=== PATIENT | female | born 1970 | race American Indian/Alaskan Native ===

== ENCOUNTER 2017-02-26 08:34 | Outpatient (CLI) | payer MEDICAID ==
[2017-02-26 09:24] LABS: Blood Urea Nitrogen 21 mg/dL (7-17)
[2017-02-26] MEDS ORDERED: NACL ONE (10:54)
--- NOTE | 2017-02-26 15:32 | Cat Scan Report ---
CT of the chest, abdomen, and pelvis without IV contrast and with oral contrast. History: Renal cancer. Findings: The lung abreu are clear. The mediastinum and hilar regions are normal. No pulmonary nodules or masses are seen. There is no pleural fluid. No suspicious bony findings are seen. A catheter terminates in the SVC. There is no pneumothorax no axillary adenopathy is seen. The liver and spleen are normal in size and configuration with no evidence of focal abnormalities. The pancreas is unremarkable. The right kidney has been removed. There is no evidence of recurrent mass in the right renal fossa. The left kidney is unremarkable. The adrenal glands are normal. There is no adenopathy within the retroperitoneum. The uterus is unremarkable. No pelvic masses are seen. Bilateral hip prostheses with associated streak artifact are noted. Impression: 1. Negative CT of the chest. 2. No suspicious findings are seen within the abdomen or pelvis. The patient is status post right nephrectomy.
== END 2017-02-26 08:35 | disposition home or self-care (01) ==
LOC: CT 08:34
PROVIDERS: ATTEND Internal Medicine Hematology & Oncology
DX: C68.9 Malignant neoplasm of urinary organ, unspecified (principal); D64.9 Anemia, unspecified; Z90.5 Acquired absence of kidney; Z96.643 Presence of artificial hip joint, bilateral
CPT/HCPCS: 36415; 71250; 74176; 82565; 84520

== ENCOUNTER 2017-03-23 19:09 | Emergency (ER) | payer MEDICAID ==
--- NOTE | 2017-03-23 20:37 | Emergency Department Report ---
Upper Extremity - HPI Chief Complaint: Extremity Problem,Nontraumatic Stated Complaint: LT HAND PAIN UNABLE TO MOVE Time Seen by Provider: 03/23/17 20:37 Upper Extremity: Left Wrist, Left Hand, Left Thumb Occurred When: >5 Days (3 weeks) Severity: mild Symptoms: Yes Pain with Movement, Yes Limited Range of Movement, Yes Weakness, Yes Swelling, No Deformity, No Numbness, No Bruising/Ecchymosis, No Laceration or Abrasion Other History: 46-year-old female past medical history diabetes asthma hypertension and hyperlipidemia presents with complaint of 3 weeks of intermittent left hand and thumb discomfort pain with movement. Patient denies any direct trauma to hand or fingers. No falls no direct blunt trauma. Denies any fever or chills. Patient is able to range her fingers but with mild discomfort. Patient states she took Tylenol with minimal relief ED Review of Systems ROS: Stated complaint: LT HAND PAIN UNABLE TO MOVE Other details as noted in HPI Constitutional: denies: chills, fever Eyes: denies: eye pain, eye discharge, vision change ENT: denies: ear pain, throat pain Respiratory: denies: cough, shortness of breath, wheezing Cardiovascular: denies: chest pain, palpitations Endocrine: no symptoms reported Gastrointestinal: denies: abdominal pain, nausea, diarrhea Genitourinary: denies: urgency, dysuria, discharge Musculoskeletal: as per HPI. denies: back pain, joint swelling, arthralgia Skin: denies: rash, lesions Neurological: denies: headache, weakness, paresthesias Psychiatric: denies: anxiety, depression Hematological/Lymphatic: denies: easy bleeding, easy bruising ED Past Medical Hx - Past Medical History Previous Medical History?: Yes Hx Hypertension: Yes Hx Diabetes: No Hx GERD: Yes Hx Liver Disease: No Hx Renal Disease: Yes (kidney cancer) Hx Arthritis: Yes Hx Seizures: No Hx Asthma: No Hx COPD: No Hx HIV: No Additional medical history: pneumonia, ulcers - Surgical History Past Surgical History?: Yes Additional Surgical History: 2 hip replacements, back surgery, right arm surgery / RIGHT NEPHRECTOMY - Social History Smoking Status: Current Every Day Smoker Substance Use Type: Alcohol - Medications Home Medications: Home Medications Medication Instructions Recorded Confirmed Last Taken Type Pregabalin [Lyrica] 300 mg PO BID 12/17/13 08/19/16 08/16/16 History Valacyclovir HCl [Valtrex] 1,000 mg PO DAILY 12/17/13 08/19/16 08/18/16 History metFORMIN [Glucophage] 1,000 mg PO BIDDIAB #60 tablet 10/15/14 08/19/16 Rx Aspirin EC [Aspirin Enteric Coated 81 mg PO QDAY 12/03/15 08/19/16 08/14/16 History TAB] Diltiazem HCl [Cardizem LA] 360 mg PO DAILY 12/03/15 08/19/16 08/18/16 History Famotidine [Pepcid] 40 mg PO QHS 12/03/15 08/19/16 08/17/16 History Mirtazapine [Remeron] 15 mg PO QHS 12/03/15 08/19/16 08/16/16 History Omeprazole [PriLOSEC] 40 mg PO QDAY 12/03/15 08/19/16 08/16/16 History Simvastatin [Zocor TAB] 20 mg PO QHS 12/03/15 08/19/16 08/18/16 History Tizanidine HCl [Zanaflex] 4 mg PO TID 12/03/15 08/19/16 08/18/16 History Losartan/Hydrochlorothiazide 1 tab PO DAILY 12/28/15 08/19/16 08/18/16 09:00 History [Losartan-Hctz 100-12.5 mg Tab] oxyCODONE /ACETAMINOPHEN [Percocet 1 tab PO Q6HR PRN #30 tablet 12/28/1508/16/16 Rx 5/325] Albuterol Sulfate [Proventil HFA] 2 puff INHALATION QDAY 08/19/16 08/19/1608/17 History Budesonide/Formoterol Fumarate 2 puff INHALATION Q12H 08/19/16 08/19/16 History [Symbicort 160-4.5 Mcg Inhaler] Insulin NPH Hum/Reg Insulin Hm 40 units SQ QPM 08/19/16 08/19/16 08/18/16 20:00 History [HumuLIN 70-30 Vial] 40 UNITS Insulin NPH Hum/Reg Insulin Hm 50 units SQ QAM 08/19/16 08/19/16 08/18/16 History [HumuLIN 70-30 Vial] Tiotropium [place] [Spiriva] 2 puff INHALATION QDAY 08/19/16 08/19/16 08/17/16 History HYDROcodone/APAP 7.5-325 [[place] 1 each PO Q8HR PRN #10 tablet 11/15/16 Unknown Rx 7.5-325 mg TAB] Acetaminophen/Codeine [Tylenol 1 tab PO Q6H PRN #8 tab 03/23/17 Unknown Rx /Codeine # 3 tab] Naproxen [Naprosyn TAB] 375 mg PO BID PRN #20 tablet 03/23/17 Unknown Rx Upper Extremity Exam - Exam General: Vital signs noted. No distress. Alert and acting appropriately. Head and Torso: No HEENT Abnormality, No Neck Tenderness, No Chest/Lungs Abnormality, No Abdominal Tenderness, No Back Tenderness Shoulder Exam: Yes Normal Range of Motion in Shoulder, No Shoulder Tenderness, No Clavicle Tenderness, No Shoulder Deformity, No AC Joint Tenderness Arm Exam: No Arm/Humerus Tenderness, No Arm Deformity Elbow: No Elbow Tenderness, No Normal Range of Motion in Elbow, No Elbow Deformity Forearm: No Forearm Tenderness, No Forearm Deformity, No Pain with Pronation, No Pain with Supination Wrist: Yes Normal ROM in Wrist (wrist flexion and extension intact), Yes Snuffbox Tenderness (mild), Yes Pain with Axial Thumb Compression (yes patient has pain with Shine test and compression of the thumb), No Wrist Tenderness, No Wrist Deformity Hand: Yes Hand Tenderness (pain with compression of the thenar eminence, positive Shine test), Yes Normal ROM in Digit(s) (passive range of motion normal in all fingers, patient has some pain with thumb extension and flexion, mild snuffbox tenderness), No Hand Deformity, No Digit Tenderness, No Digit(s) Deformity, No Tendon Dysfunction CMS Exam: Yes Normal Distal Pulses (distal pulses radial and ulnar are intact on exam), Yes Normal Capillary Refill (capillary refill less than one second in fingers), Yes Normal Distal Sensation (distal sensation and proprioception intact all fingers), No Broken Skin ED Course Vital Signs 03/23/17 19:43 Temperature 98.9 F Pulse Rate 86 Respiratory 18 Rate Blood Pressure 174/85 O2 Sat by Pulse 100 Oximetry ED Medical Decision Making - Medical Decision Making A/P: De Quervain's tenosynovitis 1-patient has positive Shine test and pain with flexion and extension of thumb, no clinical signs of infection, x-ray is unremarkable 2-naproxen when necessary, short course Epes 3-follow-up with orthopedics/hand surgery patient given referral information 4-I educated patient on signs and symptoms of hand cellulitis and showed her pictures of hand infections. Patient's son was present for this discussion. I advised him to return if hand becomes red if any purulent blisters formed or if she cannot move fingers or flex wrist at all. Patient stated that she understood, son said that he would also inspect her hand on a daily basis 5-patient placed in thumb spica for support Critical care attestation.: If time is entered above; I have spent that time in minutes in the direct care of this critically ill patient, excluding procedure time. ED Disposition Clinical Impression: De Quervain's disease (tenosynovitis) Disposition: TO HOME OR SELFCARE Is pt being admited?: No Does the pt Need Aspirin: No Condition: Stable Instructions: Tenosynovitis (ED) Additional Instructions: [email or web address] Prescriptions: Acetaminophen/Codeine [Tylenol /Codeine # 3 tab] 1 tab PO Q6H PRN #8 tab PRN Reason: Pain Naproxen [Naprosyn TAB] 375 mg PO BID PRN #20 tablet PRN Reason: Pain Referrals: VALERY JAUREGUI MD [Staff Physician] - 3-[facility] Days [facility] - [facility]-5 Days Forms: Accompanied Note, Work/School Release Form(ED) Time of Disposition: 22:01
[2017-03-23] MEDS ORDERED: MOTRIN PO ONE (20:38)
--- NOTE | 2017-03-23 21:26 | XRay Report ---
FINAL REPORT PROCEDURE: XR HAND 3 LT TECHNIQUE: Left hand, three views HISTORY: left hand/wrist pain w/ movement of thumb COMPARISON: No prior studies are available for comparison. FINDINGS: No acute fracture or dislocation is seen. No focal osseous lesion is identified. No radiopaque foreign body is seen IMPRESSION: No acute fracture or dislocation is identified
--- NOTE | 2017-03-23 21:27 | XRay Report ---
FINAL REPORT PROCEDURE: XR WRIST 3 LT TECHNIQUE: Left wrist, three views HISTORY: left wrist pain COMPARISON: No prior studies are available for comparison. FINDINGS: No acute fracture or dislocation is seen. No focal osseous lesions are identified IMPRESSION: No acute fracture or dislocation is identified
[2017-03-23] MEDS ORDERED: NORCO 5/325 PO ONE (21:59)
[2017-03-23 22:17] VITALS: BP 174/100
== END 2017-03-23 22:19 | disposition home or self-care (01) ==
LOC: ED 19:09
DX: M65.4 Radial styloid tenosynovitis [de Quervain] (principal); I10 Essential (primary) hypertension; K21.9 Gastro-esophageal reflux disease without esophagitis; M19.90 Unspecified osteoarthritis, unspecified site; F17.210 Nicotine dependence, cigarettes, uncomplicated; J45.909 Unspecified asthma, uncomplicated; E11.9 Type 2 diabetes mellitus without complications; Z90.5 Acquired absence of kidney; Z79.4 Long term (current) use of insulin
CPT/HCPCS: 99283

== ENCOUNTER 2017-05-04 19:41 | Inpatient (IN) | payer MEDICAID ==
[2017-05-04] MEDS ORDERED: ZOFRAN IV ONE (20:26)
[2017-05-04] MEDS ORDERED: SUBLIMAZE IV ONE (20:26)
--- NOTE | 2017-05-04 20:36 | Emergency Department Report ---
HPI - General Chief Complaint: Dyspnea/Respdistress Time Seen by Provider: 05/04/17 20:15 - HPI HPI: Room 24 Patient is a 46-year-old female presenting with a chief complaint of chest pain and shortness of breath. The patient states her symptoms began approximately one week ago stabbing pain in the left chest and left back. The patient states the pain was initially intermittent but became constant within the past 2 days. The patient states 3 days ago she went to see her long term who in turn set her up for an outpatient CT scan of the chest following day. The patient had her CT scan performed at an outpatient radiology facility whose name she cannot recall. The patient states she was having difficulty with her mobile home but today saw a message that was left by her long term instructed her to come to the ED immediately because her CAT scan revealed a PE. The patient has a history of renal CA status post right nephrectomy and chemotherapy. Last round of chemotherapy occurred approximately 2 months ago. The patient's oncologist is Dr. Cartwright Location: Left chest Duration: 7 days Quality: Sharp/stabbing Severity: 9/10 Modifying factors: Inspiration increases pain Context: [see above] Mode of transportation: Unknown ED Past Medical Hx - Past Medical History Previous Medical History?: Yes Hx Hypertension: Yes Hx GERD: Yes Hx Renal Disease: Yes (kidney cancer) Hx of Cancer: Yes (renal CA s/p nephrectomy. Chemo ) Hx Arthritis: Yes Additional medical history: pneumonia, ulcers - Surgical History Past Surgical History?: Yes Additional Surgical History: 2 hip replacements, back surgery, right arm surgery / RIGHT NEPHRECTOMY - Family History Family history: no significant - Social History Smoking Status: Current Every Day Smoker (10/12 ppd) Substance Use Type: None (denies illicit drug use), Alcohol (occasional) - Medications Home Medications: Home Medications Medication Instructions Recorded Confirmed Last Taken Type Pregabalin [Lyrica] 300 mg PO BID 12/17/13 08/19/16 08/16/16 History Valacyclovir HCl [Valtrex] 1,000 mg PO DAILY 12/17/13 08/19/16 08/18/16 History metFORMIN [Glucophage] 1,000 mg PO BIDDIAB #60 tablet 10/15/14 08/19/16 Rx Aspirin EC [Aspirin Enteric Coated 81 mg PO QDAY 12/03/15 08/19/16 08/14/16 History TAB] Diltiazem HCl [Cardizem LA] 360 mg PO DAILY 12/03/15 08/19/16 08/18/16 History Famotidine [Pepcid] 40 mg PO QHS 12/03/15 08/19/16 08/17/16 History Mirtazapine [Remeron] 15 mg PO QHS 12/03/15 08/19/16 08/16/16 History Omeprazole [PriLOSEC] 40 mg PO QDAY 12/03/15 08/19/16 08/16/16 History Simvastatin [Zocor TAB] 20 mg PO QHS 12/03/15 08/19/16 08/18/16 History Tizanidine HCl [Zanaflex] 4 mg PO TID 12/03/15 08/19/16 08/18/16 History Losartan/Hydrochlorothiazide 1 tab PO DAILY 12/28/15 08/19/16 08/18/16 09:00 History [Losartan-Hctz 100-12.5 mg Tab] oxyCODONE /ACETAMINOPHEN [Percocet 1 tab PO Q6HR PRN #30 tablet 12/28/1508/16/16 Rx 5/325] Albuterol Sulfate [Proventil HFA] 2 puff INHALATION QDAY 08/19/16 08/19/1608/17 History Budesonide/Formoterol Fumarate 2 puff INHALATION Q12H 08/19/16 08/19/16 History [Symbicort 160-4.5 Mcg Inhaler] Insulin NPH Hum/Reg Insulin Hm 40 units SQ QPM 08/19/16 08/19/16 08/18/16 20:00 History [HumuLIN 70-30 Vial] 40 UNITS Insulin NPH Hum/Reg Insulin Hm 50 units SQ QAM 08/19/16 08/19/16 08/18/16 History [HumuLIN 70-30 Vial] Tiotropium [place] [Spiriva] 2 puff INHALATION QDAY 08/19/16 08/19/16 08/17/16 History HYDROcodone/APAP 7.5-325 [[place] 1 each PO Q8HR PRN #10 tablet 11/15/16 Unknown Rx 7.5-325 mg TAB] Acetaminophen/Codeine [Tylenol 1 tab PO Q6H PRN #8 tab 03/23/17 Unknown Rx /Codeine # 3 tab] Naproxen [Naprosyn TAB] 375 mg PO BID PRN #20 tablet 03/23/17 Unknown Rx ED Review of Systems ROS: Stated complaint: PE Other details as noted in HPI Comment: All other systems reviewed and negative Constitutional: denies: chills, fever Eyes: denies: eye pain, eye discharge, vision change ENT: denies: ear pain, throat pain Respiratory: shortness of breath. denies: cough, wheezing Cardiovascular: chest pain. denies: palpitations Endocrine: no symptoms reported Gastrointestinal: nausea. denies: abdominal pain, vomiting, diarrhea Genitourinary: denies: urgency, dysuria, discharge Musculoskeletal: back pain. denies: joint swelling, arthralgia Skin: denies: rash, lesions Neurological: denies: headache, weakness, paresthesias Psychiatric: denies: anxiety, depression Hematological/Lymphatic: denies: easy bleeding, easy bruising Physical Exam - Physical Exam Vital Signs: Vital Signs 05/04/17 05/04/17 05/04/17 19:50 20:06 20:21 Temperature 98.8 F Pulse Rate 82 86 Respiratory 18 16 18 Rate Blood Pressure 145/80 140/71 Blood Pressure 145/80 [Left] O2 Sat by Pulse 100 98 100 Oximetry Physical Exam: GENERAL: The patient is well-developed well-nourished female sitting on stretcher appearing to be in moderate discomfort. [] HEENT: Normocephalic. Atraumatic. Extraocular motions are intact. Patient has moist mucous membranes. NECK: Supple. Trachea midline CHEST/LUNGS: Clear to auscultation. There is no respiratory distress noted. HEART/CARDIOVASCULAR: Regular. There is no tachycardia. There is no gallop rub or murmur. ABDOMEN: Abdomen is soft, nontender. Patient has normal bowel sounds. There is no abdominal distention. SKIN: There is no rash. There is no edema. There is no diaphoresis. NEURO: The patient is awake, alert, and oriented. The patient is cooperative. The patient has normal speech MUSCULOSKELETAL: There is no evidence of acute injury. ED Course Vital Signs 05/04/17 05/04/17 05/04/17 19:50 20:06 20:21 Temperature 98.8 F Pulse Rate 82 86 Respiratory 18 16 18 Rate Blood Pressure 145/80 140/71 Blood Pressure 145/80 [Left] O2 Sat by Pulse 100 98 100 Oximetry - Consultations Consultation #1: 05/04/17 22:[address] Thomas he states that he will initiate [facility] ED Medical Decision Making - Lab Data Result diagrams: 05/04/17 20:35 05/04/17 20:35 Laboratory Tests 05/04/17 05/04/17 05/04/17 20:35 20:35 20:35 WBC 6.6 RBC 3.89 Hgb 12.1 Hct 36.8 MCV 95 MCH 31 MCHC 33 RDW 15.7 H Plt Count 366 Lymph % (Auto) 32.3 [place] % (Auto) 7.3 Eos % (Auto) 2.5 Baso % (Auto) 0.5 Lymph # 2.1 [place] # 0.5 Eos # 0.2 Baso # 0.0 Seg Neutrophils % 57.4 Seg Neutrophils # 3.8 PT 13.7 INR 1.06 APTT 28.3 Carbon Dioxide 19 L BUN 11 Creatinine 0.8 Estimated GFR > 60 BUN/Creatinine Ratio 13.75 Glucose 109 H Calcium 9.6 Total Creatine Kinase 357 H CK-MB (CK-2) 4.3 H CK-MB (CK-2) Rel Index 1.2 Troponin T < 0.010 - EKG Data -: EKG Interpreted by Me EKG shows normal: sinus rhythm Rate: normal - EKG Data When compared to previous EKG there are: previous EKG unavailable Interpretation: nonspecific ST-T wave daxa (T-wave inversion in leads 3, aVF, V4 , V5, V6) - Differential Diagnosis PE, ACS, pneumonia, pneumothorax, GERD Critical care attestation.: If time is entered above; I have spent that time in minutes in the direct care of this critically ill patient, excluding procedure time. ED Disposition Clinical Impression: Bilateral pulmonary embolism Disposition: [id number] OP ADMIT IP TO THIS HOSP Is pt being admited?: Yes Does the pt Need Aspirin: No Condition: Fair Time of Disposition: 22:49 (hospitalist notified)
[2017-05-04 21:09] LABS: INR 1.06 (0.87-1.13)
[2017-05-04 21:10] LABS: Partial Thromboplastin Time 28.3 Sec. (24.2-36.6)
[2017-05-04 21:39] LABS: Creatine Kinase MB 4.3 ng/mL (0.0-4.0)
[2017-05-04 21:42] LABS: Anion Gap 24 mmol/L; BUN/Creatinine Ratio 13.75; Basophils % (Auto) 0.5 % (0.0-1.8); Blood Urea Nitrogen 11 mg/dL (7-17); Calcium 9.6 mg/dL (8.4-10.2); Carbon Dioxide 19 mmol/L (22-30); Chloride 103.3 mmol/L (98-107); Creatine Kinase 357 units/L (30-135); Eosinophils % (Auto) 2.5 % (0.0-4.3); Glucose 109 mg/dL (65-100); Hematocrit 36.8 % (30.3-42.9); Hemoglobin 12.1 gm/dl (10.1-14.3); Mean Corpuscular HGB Conc 33 % (30-34); Mean Corpuscular Hemoglobin 31 pg (28-32); Mean Corpuscular Volume 95 fl (79-97); Platelet Count 366 K/mm3 (140-440); Potassium 3.9 mmol/L (3.6-5.0); Red Blood Count 3.89 M/mm3 (3.65-5.03); Red Cell Distribution Width 15.7 % (13.2-15.2); Sodium 142 mmol/L (137-145); White Blood Count 6.6 K/mm3 (4.5-11.0)
[2017-05-04] MEDS ORDERED: MORPHINE IV ONE (21:49)
--- NOTE | 2017-05-04 22:49 | Cat Scan Report ---
FINAL REPORT PROCEDURE: CT ANGIO CHEST TECHNIQUE: Computerized tomographic angiography of the chest was performed during the IV injection of iodinated nonionic contrast including image processing. The image data was postprocessed using 2-dimensional multiplanar reformatted (MPR) and 3-dimensional (MIP and/or volume rendered) techniques. HISTORY: chest pain COMPARISON: No prior studies are available for comparison. FINDINGS: Pulmonary outflow tract, right and left main pulmonary arteries and their proximal branches: There is a small filling defect visualized in 2 2 adjacent branches of the branches of the right lower lobe pulmonary artery seen on axial image 82 series 3 axial image and also on coronal reconstruction image 75 series 201. This is also seen on the MIP reformatted rotational 20 series 203 and is consistent with a small pulmonary embolus. A small filling defect also visualized in 1 of the branches of the left lower lobe pulmonary artery image 81 series 3, MIP reformatted image 41 series 203. Pericardium: No evidence of pericardial effusion. Thoracic aorta: No evidence of aneurysmal dilatation or dissection. Coronary arteries: Are unremarkable. Mediastinum and hilar regions: Nonspecific subcentimeter lymph nodes are visualized. No pathologically enlarged lymph nodes or masses are identified. Lung [place]: Small amount of dependent atelectasis visualized. No effusions are seen. Lungs otherwise are clear. Upper abdomen: Coarse calcifications are seen in the right adrenal gland suggesting prior infection, infarction or old hemorrhage. No masses are seen. No acute abnormalities are seen in the upper abdomen. Other: None These findings were discussed in detail with on 05/04/2017 at 10:40 p.m. Eastern standard time IMPRESSION: Small pulmonary emboli seen in peripheral branches of the right and left lower lobe pulmonary arteries as described above. There is minimal dependent atelectasis. Chronic changes right adrenal gland as described. No acute abnormalities are seen in the upper abdomen. Critical value: These findings were discussed in detail with Dr Ospina on 05/04/2017 at 10:40 p.m. Eastern standard time
--- NOTE | 2017-05-04 23:21 | History and Physical Report ---
History of Present Illness Chief complaint: It hurts when i breathe History of present illness: 46 YO Female with HTN, GERD, RCC S/P nephrectomy and chemotherapy, OA, Nicotine Dependence presents to ED for evaluation. Pt states that she has experienced pleuritic chest pain for the past week with worsening symptoms over the past 2 days. The patient states 3 days ago she went to see her labor and employment paralegal who in turn set her up for an outpatient CT scan of the chest following day which showed evidence of PE. Pt was instructed by labor and employment paralegal to present to ED for evaluation. Pt seen and evaluated in ED and found to be in respiratory distress. Pt underwent CTA chest which showed evidence of bilateral PE. Pt denies fever, chills, Palpitations, NVD, syncope, weakness, hemoptysis. Pt acknowledges shortness of breath with deep breathing. Past History Past Medical History: arthritis, cancer, GERD, hypertension Past Surgical History: Other (Nephrectomy) Social history: single, lives with family, smoking. denies: alcohol abuse, prescription drug abuse, IV drug use Family history: hypertension Medications and Allergies Allergies Allergy/AdvReac Type Severity Reaction Status Date / Time hydromorphone HCl Allergy Hives Verified 09/25/13 13:15 [From Dilaudid] tomato [Tomato] Allergy Hives Verified 12/17/13 20:12 Home Medications Medication Instructions Recorded Confirmed Last Taken Type Pregabalin [Lyrica] 300 mg PO BID 12/17/13 05/05/17 05/03/17 History Valacyclovir HCl [Valtrex] 1,000 mg PO DAILY 12/17/13 05/05/17 05/03/17 History metFORMIN [Glucophage] 1,000 mg PO BIDDIAB #60 tablet 10/15/14 05/05/17 Rx Aspirin EC [Aspirin Enteric Coated 81 mg PO QDAY 12/03/15 05/05/17 05/03/17 History TAB] Diltiazem HCl [Cardizem LA] 360 mg PO DAILY 12/03/15 05/05/17 05/03/17 History Famotidine [Pepcid] 40 mg PO QHS 12/03/15 05/05/17 05/03/17 History Mirtazapine [Remeron] 15 mg PO QHS 12/03/15 05/05/17 05/03/17 History Omeprazole [PriLOSEC] 40 mg PO QDAY 12/03/15 05/05/17 05/03/17 History Simvastatin [Zocor TAB] 20 mg PO QHS 12/03/15 05/05/17 05/03/17 History Tizanidine HCl [Zanaflex] 4 mg PO TID 12/03/15 05/05/17 05/03/17 History Losartan/Hydrochlorothiazide 1 tab PO DAILY 12/28/15 05/05/17 05/03/17 History [Losartan-Hctz 100-12.5 mg Tab] oxyCODONE /ACETAMINOPHEN [Percocet 1 tab PO Q6HR PRN #30 tablet 12/28/1508/16/16 Rx 5/325] Albuterol Sulfate [Proventil HFA] 2 puff INHALATION QDAY 08/19/16 05/05/1708/17 History Budesonide/Formoterol Fumarate 2 puff INHALATION Q12H 08/19/16 05/05/17 History [Symbicort 160-4.5 Mcg Inhaler] Insulin NPH Hum/Reg Insulin Hm 40 units SQ QPM 08/19/16 05/05/17 08/18/16 20:00 History [HumuLIN 70-30 Vial] 40 UNITS Insulin NPH Hum/Reg Insulin Hm 50 units SQ QAM 08/19/16 05/05/17 08/18/16 History [HumuLIN 70-30 Vial] Tiotropium [place] [Spiriva] 2 puff INHALATION QDAY 08/19/16 05/05/17 05/03/17 History HYDROcodone/APAP 7.5-325 [[place] 1 each PO Q8HR PRN #10 tablet 11/15/16 05/05/17 05/03/17 Rx 7.5-325 mg TAB] Acetaminophen/Codeine [Tylenol 1 tab PO Q6H PRN #8 tab 03/23/17 05/05/17 Unknown Rx /Codeine # 3 tab] Naproxen [Naprosyn TAB] 375 mg PO BID PRN #20 tablet 03/23/17 05/05/17 05/03/17 Rx Review of Systems All systems: negative Constitutional: no weight loss Ears, nose, mouth and throat: no ear pain Breasts: no swelling Cardiovascular: shortness of breath, dyspnea on exertion, no chest pain Respiratory: no cough Gastrointestinal: no abdominal pain Genitourinary Female: no flank pain Rectal: no pain Musculoskeletal: no neck stiffness Integumentary: no rash Neurological: no paralysis Psychiatric: no anxiety Endocrine: no cold intolerance Hematologic/Lymphatic: no easy bruising Allergic/Immunologic: no urticaria Exam - Constitutional Vitals: Temp Pulse Resp BP Pulse Ox 98.4 F 76 18 132/71 100 05/04/17 21:41 05/04/17 21:41 05/04/17 21:41 05/04/17 21:41 05/04/17 21:41 General appearance: Present: mild distress - EENT Eyes: Present: PERRL ENT: hearing intact, clear oral mucosa - Neck Neck: Present: supple, normal ROM - Respiratory Respiratory effort: labored Respiratory: bilateral: diminished - Cardiovascular Heart Sounds: Present: S1 & S2. Absent: rub, click - Extremities Extremities: pulses symmetrical, No edema Peripheral Pulses: within normal limits - Abdominal General gastrointestinal: Present: soft, non-tender, non-distended, normal bowel sounds Female genitourinary: Present: normal - Integumentary Integumentary: Present: clear, warm, dry - Musculoskeletal Musculoskeletal: gait normal, strength equal bilaterally - Psychiatric Psychiatric: appropriate mood/affect, intact judgment & insight - Neurologic Neurologic: CNII-XII intact, moves all extremities Results - Labs CBC & Chem 7: 05/04/17 20:35 05/04/17 20:35 Labs: Abnormal lab results 05/04/17 05/04/17 Range/Units 20:35 20:35 RDW 15.7 H (13.2-15.2) % Carbon Dioxide 19 L (22-30) mmol/L Glucose 109 H (65-100) mg/dL Total Creatine Kinase 357 H (30-135) units/L CK-MB (CK-2) 4.3 H (0.0-4.0) ng/mL Assessment and Plan - Patient Problems (1) Acute respiratory failure Current Visit: Yes Status: Acute Qualifiers: Respiratory failure complication: R Plan to address problem: Supplemental oxygen, nebs, supportive care, treat PE, NIPPV as clinically indicated. (2) Bilateral pulmonary embolism Current Visit: Yes Status: Acute Plan to address problem: Therapeutic anticoagulation, supportive care, supplemental oxygen, (3) Accelerated hypertension Current Visit: Yes Status: Acute Plan to address problem: monitor BP q shift, suppportive care. (4) Metabolic acidosis Current Visit: Yes Status: Acute Plan to address problem: supportive care, IVF, repeat bmp, (5) GERD (gastroesophageal reflux disease) Current Visit: Yes Status: Acute Qualifiers: Esophagitis presence: E Plan to address problem: ppi therapy (6) Obesity (BMI 30-39.9) Current Visit: Yes Status: Acute Plan to address problem: Pt counseled regarding increased physical activity, balanced diet. (7) Renal cell cancer Current Visit: No Status: Acute Qualifiers: Laterality: L Plan to address problem: S/P nephrectomy, and chemotherapy, supportive care, outpatient oncology f/u. (8) DVT prophylaxis Current Visit: No Status: Acute
[2017-05-04] MEDS ORDERED: TYLENOL PO PRN (23:22)
[2017-05-04] MEDS ORDERED: PROVENTIL IH PRN (23:22)
[2017-05-04] MEDS ORDERED: NAPROSYN PO PRN (23:26)
[2017-05-04] MEDS ORDERED: NON-FORMULARY (Budesonide/Formoterol Fumarate [Symbicort 160-4.5 Mcg Inhaler] 2 PUFF) INHALATION SCH (23:30)
[2017-05-05] MEDS: ELIQUIS PO SCH ×3 (00:34→22:28)
[2017-05-05] MEDS: PERCOCET 5/325 PO PRN ×2 (03:53→19:24)
--- NOTE | 2017-05-05 04:07 | Admit Criteria Form ---
Admission Criteria Documentation: PULMONARY EMBOLISM Clinical Indications for Admission to Inpatient Care (Place 'X' for any and all applicable criteria): Admission is indicated for 1 or more of the following(1)(2)(3)(4)(5)(6)(7) [ ]I. Hypoxemia [ ]II. Vital sign abnormality (8) indicated by ALL of the following: [ ]a) Vital sign findings not as expected for chronic patient condition or baseline (eg, intentionally low, blood pressure in heart failure) [ ]b) Vital sign abnormality as indicated by 1 or more of the following [ ]l) Tachycardia [ ]ll) Hypotension [ ]lll) Orthostatic vital sign changes [ ]III. History of cancer [ ]IV. History of chronic cardiopulmonary disease (eg. CHF, coronary artery disease, COPD, cor pulmonale) [ ]V. Cardiac arrhythmias of intermediate concern [ ]. Right ventricular dysfunction (eg, by echocardiogram) [ ]VII. Positive cardiac biomarker (eg, troponin T or I > 0.1 ng/mL (mcg/L), highly sensitive troponin I assay greater than 0.014 ng/mL (mcg/L), BNP or NT proBNP > assay threshold)(8 )(10)(11) [ ]VIII. Need for IV narcotics (eg, to treat dyspnea) 1 or more of following: [ ]a) Bleeding before anticoagulation [ ]b) Recent surgery (eg, within 3 months) that increases risk of catastrophic bleeding (eg, spinal surgery, intracranial surgery, cardiovascular surgery) [ ]c) Recent GI bleeding (eg, within 3 months) or known increased risk of GI bleed (eg,esophageal varices, current ulcer) [ ]d) Recent (eg, within 3 months) ischemic stroke [ ]e) History of intracranial bleeding (eg, hemorrhagic stroke) [ ]f) History of active bleeding when anticoagulated [ ]g) Active substance abuse [ ]h) Other risk factor thought to place patient at high risk such that ability to rapidly reverse reversal agent) [ ]X. Documented extensive thrombosis (eg, clot in vena cava or above iliofemoral bifurcation) [ ]Xl. Thrombolysis (eg, catheter-directed) or pharmacomechanical thrombectomy needed[A][B](8) [ ]XIl. Vena cava filter placement needed (eg, unable to anticoagulate)[C](8) [ ]Xlll. with delivery planned (eg, 37 or more weeks' gestation)(14 ) [ ]XlV. Limb-threatening thrombosis (eg, phlegmasia cerula dolens) [ ]XV. Embolism while on anti-coagulation [ ]XVl. Contraindication to outpatient use of medication with rapid anticoagulation effect as indicated by ALL of the following: [ ] a) Contraindication to use of lki-eytwjkzaz-urnsso heparin[E][F ] indicated by 1 or more of the following(16): [ ] i) Documented current or history of heparin-induced thrombocytopenia(15) [ ] ii) Severe thrombocytopenia (eg, platelet count less than 50 ,000/mm3 (50 x109/L)) [ ] iii) Allergy to heparin, lwq-exduxgjgh-iclsmy heparin, or product component [ ] iv) Renal failure (creatinine clearance less than 30 mL/min/ 1.73m2 (0.50 mL/sec/1.73m2) or on dialysis) [ ] v) Need for neuraxial anesthesia or spinal puncture anticipated [ ] vi) Inability to manage self-injection (eg. By patient, caregiver, or visiting nurse) [ ] b) Contraindication to use of fondaparinux indicated by 1 or more of the following: [ ] i) Documented current or history of heparin-induced thrombocytopenia (15) [ ] ii) Severe thrombocytopenia (eg, platelet count less than 50 ,000/mm3 (50 x109/L)) [ ] iii) Allergy to fondaparinux, related drugs, or product components [ ] iv) Renal failure (creatinine clearance less than 30 mL/min/ 1.73m2 (0.50 mL/sec/1.73m2) or on dialysis) [ ] v) [ ] vi) Liver disease with coagulopathy (eg, elevated INR due to liver disease) [ ] vii) Mechanical heart valve [ ] viii) Need for neuraxial anesthesia or spinal puncture anticipated [ ] xi) Inability to manage self-injection (eg, by patient, caregiver, or visiting nurse) [ ] c) Contraindication to use of an oral direct thrombin inhibitor (eg, dabigatran) or an oral coagulation factor Xa inhibitor (eg, rivaroxaban, apixaban)[E][F] indicated by 1 or more of the following(17)(18): [ ] i) Severe thrombocytopenia (eg, platelet count less than 50, 000/mm3 (50 x109/L)) [ ] ii) Allergy to medication or product components x109/L)) [ ] iii) Renal failure (creatinine clearance less than 30 mL/min /1.73m2 (0.50 mL/sec/1.73m2) or on dialysis) [ ] iv) [ ] v) Liver disease with coagulopathy (eg, elevated INR due to liver disease) [ ] vi) Mechanical heart valve [ ] vii) Need for neuraxial anesthesia or spinal puncture anticipated [ X]XVll. Inpatient admission required rather than observation care (Also use Pulmonary Embolism: Observation Care guideline as appropriate) because of ANY ONE of the following: [ ] a) Significant autoimmune (thrombocytopenia) or coagulopathic reaction occurs in response to anticoagulation [X ] b) Respiratory symptoms (eg, tachypnea, dyspnea) that are severe or persistent [ ] c) Other condition, treatment, or monitoring requiring inpatient admission The original [facility] content created by [employer] has been revised. The portions of the content which have been revised are identified through the use of italic text or in bold, and [facility] [place] has neither reviewed nor approved the modified material. All other unmodified content is copyright [facility]. Please see references footnoted in the original [facility] edition 2017 Admission Criteria Met: Yes
[2017-05-05] MEDS: PULMICORT IH SCH ×2 (07:28→23:23)
[2017-05-05] MEDS: BROVANA NEBU IH SCH ×2 (07:28→23:23)
[2017-05-05] MEDS: COZAAR PO SCH (09:50)
[2017-05-05] MEDS: ZANAFLEX PO SCH ×3 (09:51→19:24)
[2017-05-05] MEDS: PROTONIX PO SCH (09:51)
[2017-05-05] MEDS: HCTZ PO SCH (09:51)
[2017-05-05] MEDS: LYRICA PO SCH ×2 (09:51→22:27)
[2017-05-05] MEDS: VALTREX PO SCH (09:52)
[2017-05-05] MEDS: SPIRIVA IH SCH (10:37)
--- NOTE | 2017-05-05 12:17 | Progress Note ---
Subjective Date of service: 05/05/17 Interval history: Assessment and plan: Acute bilateral pulmonary embolism: Continue Eliquis 10 mg twice a day. Side effects explained to the patient including potential bleeding CTA report reviewed. I have added morphine as needed for her chest pain Hypertension: Fair. Continue present medications Type 2 diabetes on insulin: Continue basal insulin and insulin sliding scale coverage Hyperlipidemia: Continue statin History of renal cell cancer: Status post surgery chemotherapy and radiation therapy GERD: Continue PPI Smoker: Smoking cessation counseling done Subjective: Patient is awake and alert. Complains of pain in the left lower chest and left mid back especially with breathing and when she moves in a certain way. She also complains of mild dry cough but denies any blood-tinged sputum, fever or chills but says she feels hot and cold. Denies any shortness of breath. She denies any headache abdominal pain nausea vomiting or melena. Denies any dysuria Objective - Constitutional Vitals: Vital Signs - 12hr 05/05/17 05/05/17 05/05/17 06:15 07:29 07:31 Temperature 98.1 F Pulse Rate 63 Pulse Rate [ 73 Anterior Bilateral Throughout] Respiratory 20 Rate Respiratory 18 Rate [Anterior Bilateral Throughout] Blood Pressure 142/65 O2 Sat by Pulse 100 100 Oximetry 05/05/17 05/05/17 05/05/17 07:44 08:00 09:50 Temperature 97.8 F Pulse Rate 64 Pulse Rate [ 61 Anterior Bilateral Throughout] Respiratory 18 Rate Respiratory 18 Rate [Anterior Bilateral Throughout] Blood Pressure 118/66 118/66 O2 Sat by Pulse 96 Oximetry General appearance: Present: no acute distress - EENT Eyes: PERRL, EOM intact ENT: hearing intact, clear oral mucosa, no thrush - Neck Neck: supple, normal ROM, no masses or JVD - Respiratory Respiratory effort: normal Respiratory: bilateral: CTA - Cardiovascular Rhythm: regular Heart Sounds: Present: S1 & S2 Extremities: No edema - Gastrointestinal General gastrointestinal: Present: soft, non-tender. Absent: hepatomegaly, splenomegaly Rectal Exam: deferred - Integumentary Integumentary: clear - Musculoskeletal Musculoskeletal: strength equal bilaterally, other (moderate tenderness in the left lower chest wall) - Neurologic Neurologic: no focal deficits - Psychiatric Psychiatric: appropriate mood/affect - Labs CBC & Chem 7: 05/04/17 20:35 05/04/17 20:35 Labs: Abnormal lab results 05/05/17 05/05/17 Range/Units 06:18 11:23 POC Glucose 150 H 128 H (70-105)
[2017-05-05] MEDS: CARDIZEM CD PO SCH (13:01)
[2017-05-05] MEDS: ZOCOR PO SCH (22:29)
[2017-05-05] MEDS: REMERON PO SCH (22:29)
[2017-05-06 05:06] LABS: Hemoglobin 11.6 gm/dl (10.1-14.3); White Blood Count 5.3 K/mm3 (4.5-11.0)
[2017-05-06 05:13] LABS: Blood Urea Nitrogen 20 mg/dL (7-17); Calcium 9.3 mg/dL (8.4-10.2); Carbon Dioxide 23 mmol/L (22-30); Glucose 172 mg/dL (65-100)
[2017-05-06 05:14] LABS: Anion Gap 19 mmol/L; Chloride 104.1 mmol/L (98-107); Potassium 4.4 mmol/L (3.6-5.0); Sodium 142 mmol/L (137-145)
[2017-05-06 05:18] LABS: Hematocrit 34.9 % (30.3-42.9); Mean Corpuscular HGB Conc 33 % (30-34); Mean Corpuscular Hemoglobin 31 pg (28-32); Mean Corpuscular Volume 93 fl (79-97); Platelet Count 328 K/mm3 (140-440); Red Blood Count 3.75 M/mm3 (3.65-5.03); Red Cell Distribution Width 15.2 % (13.2-15.2)
[2017-05-06] MEDS: PULMICORT IH SCH ×3 (09:50→22:32)
[2017-05-06] MEDS: BROVANA NEBU IH SCH ×3 (09:50→22:32)
[2017-05-06] MEDS: CARDIZEM CD PO SCH (10:23)
[2017-05-06] MEDS: COZAAR PO SCH (10:23)
[2017-05-06] MEDS: VALTREX PO SCH (10:24)
[2017-05-06] MEDS: ELIQUIS PO SCH ×2 (10:24→21:26)
[2017-05-06] MEDS: ZANAFLEX PO SCH ×3 (10:24→21:27)
[2017-05-06] MEDS: PROTONIX PO SCH (10:24)
[2017-05-06] MEDS: HCTZ PO SCH (10:24)
[2017-05-06] MEDS: LYRICA PO SCH ×2 (10:24→21:27)
[2017-05-06] MEDS: PERCOCET 5/325 PO PRN ×2 (10:52→20:20)
[2017-05-06] MEDS: SPIRIVA IH SCH ×2 (13:50→14:44)
--- NOTE | 2017-05-06 15:36 | Progress Note ---
Assessment and Plan Assessment and plan: 46 YO Female with HTN, GERD, RCC S/P nephrectomy and chemotherapy, OA, Nicotine Dependence presents to ED for evaluation. Pt states that she has experienced pleuritic chest pain for the past week with worsening symptoms over the past 2 days. The patient states 3 days ago she went to see her assembler production line who in turn set her up for an outpatient CT scan of the chest following day which showed evidence of PE. Pt was instructed by assembler production line to present to ED for evaluation. Pt seen and evaluated in ED and found to be in respiratory distress. Pt underwent CTA chest which showed evidence of bilateral PE. Pt denies fever, chills, Palpitations, NVD, syncope, weakness, hemoptysis. Pt acknowledges shortness of breath with deep breathing. Acute bilateral pulmonary embolism: Continue Eliquis 10 mg twice a day. Side effects explained to the patient including potential bleeding CTA report reviewed. Continue when necessary morphine. We'll monitor one additional day prior to discharge. We'll check lower extremities for DVT. We' ll also obtain an echocardiogram. Hematology consultation discussed with Dr. Cartwright on anticoagulation Hypertension: Improved. Continue present medications Type 2 diabetes on insulin: Continue basal insulin and insulin sliding scale coverage Hyperlipidemia: Continue Statin History of renal cell cancer: Status post surgery chemotherapy and radiation therapy. hematology/oncolongist consult. GERD: Continue PPI Metabolic Acidosis: Resolved Morbid Obesity: Discussed with patient about need to lose weight and management. Smoker: Smoking cessation counseling done DVT and GI prophylaxis Discussed with the patient in detail History Interval history: Patient seen and examined, Still with some shortness of breath but reports improvement. Hospitalist Physical - Physical exam Narrative exam: VITAL SIGNS: Reviewed. GENERAL: The patient appeared well nourished and normally developed. Vital signs as documented. HEAD: No signs of head trauma. EYES: Pupils are equal. Extraocular motions intact. EARS: Hearing grossly intact. MOUTH: Oropharynx is normal. NECK: No adenopathy, no JVD. CHEST: Chest with clear breath sounds bilaterally. No wheezes, rales, or rhonchi. CARDIAC: Regular rate and rhythm. S1 and S2, without murmurs, gallops, or rubs. VASCULAR: No Edema. Peripheral pulses normal and equal in all extremities. ABDOMEN: Soft, without detectable tenderness. No sign of distention. No rebound or guarding, and no masses palpated. Bowel Sounds normal. MUSCULOSKELETAL: Good range of motion of all major joints. Extremities without clubbing, cyanosis or edema. NEUROLOGIC EXAM: Alert and oriented x 3. No focal sensory or strength deficits. Speech normal. Follows commands. PSYCHIATRIC: Mood normal. SKIN: No rash or lesions. - Constitutional Vitals: Temp Pulse Resp BP Pulse Ox 97.8 F 68 18 140/62 98 05/06/17 08:00 05/06/17 08:00 05/06/17 08:00 05/06/17 10:23 05/06/17 08:00 General appearance: Present: no acute distress Results - Labs CBC & Chem 7: 05/06/17 04:32 05/06/17 04:32 Labs: Laboratory Last Values WBC 5.3 K/mm3 (4.5-11.0) 05/06/17 04:32 RBC 3.75 M/mm3 (3.65-5.03) 05/06/17 04:32 Hgb 11.6 gm/dl (10.1-14.3) 05/06/17 04:32 Hct 34.9 % (30.3-42.9) 05/06/17 04:32 MCV 93 fl (79-97) 05/06/17 04:32 MCH 31 pg (28-32) 05/06/17 04:32 MCHC 33 % (30-34) 05/06/17 04:32 RDW 15.2 % (13.2-15.2) 05/06/17 04:32 Plt Count 328 K/mm3 (140-440) 05/06/17 04:32 Lymph % (Auto) 32.3 % (13.4-35.0) 05/04/17 20:35 [place] % (Auto) 7.3 % (0.0-7.3) 05/04/17 20:35 Eos % (Auto) 2.5 % (0.0-4.3) 05/04/17 20:35 Baso % (Auto) 0.5 % (0.0-1.8) 05/04/17 20:35 Lymph # 2.1 K/mm3 (1.2-5.4) 05/04/17 20:35 [place] # 0.5 K/mm3 (0.0-0.8) 05/04/17 20:35 Eos # 0.2 K/mm3 (0.0-0.4) 05/04/17 20:35 Baso # 0.0 K/mm3 (0.0-0.1) 05/04/17 20:35 Seg Neutrophils % 57.4 % (40.0-70.0) 05/04/17 20:35 Seg Neutrophils # 3.8 K/mm3 (1.8-7.7) 05/04/17 20:35 PT 13.7 Sec. (12.2-14.9) 05/04/17 20:35 INR 1.06 (0.87-1.13) 05/04/17 20:35 APTT 28.3 Sec. (24.2-36.6) 05/04/17 20:35 Sodium 142 mmol/L (137-145) 05/06/17 04:32 Potassium 4.4 mmol/L (3.6-5.0) 05/06/17 04:32 Chloride 104.1 mmol/L (98-107) 05/06/17 04:32 Carbon Dioxide 23 mmol/L (22-30) 05/06/17 04:32 Anion Gap 19 mmol/L 05/06/17 04:32 BUN 20 mg/dL (7-17) H 05/06/17 04:32 Creatinine 1.0 mg/dL (0.7-1.2) 05/06/17 04:32 Estimated GFR > 60 ml/min 05/06/17 04:32 BUN/Creatinine Ratio 20.00 % 05/06/17 04:32 Glucose 172 mg/dL (65-100) H 05/06/17 04:32 POC Glucose 130 (70-105) H 05/06/17 13:24 Calcium 9.3 mg/dL (8.4-10.2) 05/06/17 04:32 Total Creatine Kinase 357 units/L (30-135) H 05/04/17 20:35 CK-MB (CK-2) 4.3 ng/mL (0.0-4.0) H 05/04/17 20:35 CK-MB (CK-2) Rel Index 1.2 (0-4) 05/04/17 20:35 Troponin T < 0.010 ng/mL (0.00-0.029) 07/30/17 20:35 - Imaging and Cardiology CT scan - chest: image reviewed (B/L pulmonary emboli at the peripheral)
[2017-05-06] MEDS: REMERON PO SCH (21:27)
[2017-05-06] MEDS: ZOCOR PO SCH (21:27)
[2017-05-07] MEDS: PULMICORT IH SCH (07:45)
[2017-05-07] MEDS: BROVANA NEBU IH SCH (07:45)
[2017-05-07] MEDS: SPIRIVA IH SCH ×2 (07:51→09:08)
[2017-05-07] MEDS: ZANAFLEX PO SCH (08:34)
--- NOTE | 2017-05-07 09:26 | Hem/Onc Progress Note ---
Assessment and Plan Agree with amy. Patient has no active malignancy. Subjective Date of service: 05/07/17 Interval history: Patient known to me. 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 She has no evidence of recurrence. Presented with evidence of pulmonary embolus. She feels better. Still deconditioned Objective - Constitutional Vitals: Last Vital Signs Temp 98.4 F 05/07/17 04:00 Pulse 72 05/07/17 04:00 Resp 20 05/07/17 04:00 BP 103/48 05/07/17 04:00 Pulse Ox 100 05/07/17 04:00 Pain Intensity (0-10): denies any pain General appearance: mild distress Performance status: 3-limited selfcare - Neck Neck: supple - Respiratory Respiratory: bilateral: diminished - Cardiovascular Rhythm: regular Extremities: No edema - Gastrointestinal General gastrointestinal: Present: soft - Labs Lab Results: Laboratory Results - last 24 hr 05/05/17 05/06/17 05/06/17 21:32 05:36 13:24 POC Glucose 147 H 173 H 130 H 05/06/17 05/06/17 05/07/17 15:49 23:43 05:50 POC Glucose 178 H 313 H 339 H
[2017-05-07] MEDS ORDERED: MIRALAX 3350 PO PRN (09:27)
[2017-05-07 09:54] VITALS: BP 115/73
[2017-05-07] MEDS: VALTREX PO SCH (09:56)
[2017-05-07] MEDS: ELIQUIS PO SCH (09:57)
[2017-05-07] MEDS: COZAAR PO SCH (09:58)
[2017-05-07] MEDS: LYRICA PO SCH (09:59)
[2017-05-07] MEDS: CARDIZEM CD PO SCH (09:59)
[2017-05-07] MEDS: HCTZ PO SCH (10:04)
[2017-05-07] MEDS: PROTONIX PO SCH (10:05)
[2017-05-07] MEDS ORDERED: SPIRIVA IH SCH (10:30)
--- NOTE | 2017-05-07 11:01 | Discharge Summary ---
Providers - Providers Date of Admission: 05/04/17 23:22 Attending physician: TAMMY WARD MD 05/06/17 11:31 Consult to Physician [CONS] Routine Consulting Provider: SONJA VAIL Reason For Exam: anticogulation of choice Place consult to:: Notified:: OFFICE Phone number called:: [phone] Was contact made?: Yes If yes, spoke with:: MADALYN Time called:: 12:44 Comment:: TRESSA NOTIFIED Primary care physician: DRUM SANDER SETTER Hospitalization Reason for admission: shortness of breath Condition: Stable Hospital course: 46 YO Female with HTN, GERD, RCC S/P nephrectomy and chemotherapy, OA, Nicotine Dependence presents to ED for evaluation. Pt states that she has experienced pleuritic chest pain for the past week with worsening symptoms over the past 2 days. The patient states 3 days ago she went to see her gardening supervisor who in turn set her up for an outpatient CT scan of the chest following day which showed evidence of PE. Pt was instructed by gardening supervisor to present to ED for evaluation. Pt seen and evaluated in ED and found to be in respiratory distress. Pt underwent CTA chest which showed evidence of bilateral PE. Pt denies fever, chills, Palpitations, NVD, syncope, weakness, hemoptysis. Pt acknowledges shortness of breath with deep breathing. Patient was started on Eliquis days lost on that dose and hematology oncology was consulted and recommended that patient can continue on Eliquis there is no active malignancy at this time. ultrasound of the leg was done and ruled out any dvt. echocardiogram did not show any ventricular strain. she is stable at this point for discharge and to follow up with primary care physician and also with the blacksmith hammer operator on her gardening supervisor. i did discuss all medications and side effects with the patient she verbalized understanding. Discharge diagnosis Acute bilateral pulmonary embolism: Hypertension: Improved. Type 2 diabetes on insulin: Hyperlipidemia: History of renal cell cancer: GERD: Metabolic Acidosis: Morbid Obesity: Tobacco dependence Disposition: - TO HOME OR SELFCARE Time spent for discharge: 35 mins Core Measure Documentation - Palliative Care Palliative Care/ Comfort Measures: Not Applicable - Core Measures Any of the following diagnoses?: DVT/PE - VTE Discharge Requirements Deep Vein Thrombosis/Pulmonary Embolism Present on Admission: Yes Has pt received <5 days of overlap therapy or INR<2.0: Yes Anticoagulant overlap therapy prescribed at discharge: No Contraindication No Overlap Therapy order at DC: Not Indicated Exam - Physical Exam Narrative exam: VITAL SIGNS: Reviewed. GENERAL: The patient appeared well nourished and normally developed. Vital signs as documented. HEAD: No signs of head trauma. EYES: Pupils are equal. Extraocular motions intact. EARS: Hearing grossly intact. MOUTH: Oropharynx is normal. NECK: No adenopathy, no JVD. CHEST: Chest with clear breath sounds bilaterally. No wheezes, rales, or rhonchi. CARDIAC: Regular rate and rhythm. S1 and S2, without murmurs, gallops, or rubs. VASCULAR: No Edema. Peripheral pulses normal and equal in all extremities. ABDOMEN: Soft, without detectable tenderness. No sign of distention. No rebound or guarding, and no masses palpated. Bowel Sounds normal. MUSCULOSKELETAL: Good range of motion of all major joints. Extremities without clubbing, cyanosis or edema. NEUROLOGIC EXAM: Alert and oriented x 3. No focal sensory or strength deficits. Speech normal. Follows commands. PSYCHIATRIC: Mood normal. SKIN: No rash or lesions. - Constitutional Vitals: Temp Pulse Resp BP Pulse Ox 97.3 F L 77 16 115/73 99 05/07/17 07:30 05/07/17 09:58 05/07/17 07:30 05/07/17 09:58 05/07/17 07:30 Plan Activity: advance as tolerated, fall precautions Diet: diabetic Special Instructions: record daily BP diary, record blood sugar diary Additional Instructions: follow with primary gardening supervisor Follow up with: NILSA ESCOBEDO MD [Primary Care Provider] - 3-5 Days SONJA VAIL MD [Staff Physician] - 7 Days Prescriptions: Apixaban [Eliquis] 10 mg PO Q12HR #7 tablet Apixaban [Eliquis] 5 mg PO BID 30 Days HYDROcodone/APAP 7.5-325 [[place] 7.5-325 mg TAB] 1 each PO Q8HR PRN #10 tablet PRN Reason: Pain
[2017-05-07] MEDS ORDERED: NOVOLOG SUB-Q SCH (11:30)
== END 2017-05-07 11:50 | disposition home or self-care (01) | DRG 175 ==
LOC: ED 19:41 → 3A 23:22
PROVIDERS: ADMIT Internal Medicine; ATTEND Internal Medicine
DX: I26.99 Other pulmonary embolism without acute cor pulmonale (principal); J96.00 Acute respiratory failure, unspecified whether with hypoxia or hypercapnia; F17.203 Nicotine dependence unspecified, with withdrawal; I10 Essential (primary) hypertension; K21.9 Gastro-esophageal reflux disease without esophagitis; E87.2 Acidosis; E11.8 Type 2 diabetes mellitus with unspecified complications; E78.5 Hyperlipidemia, unspecified; Z96.649 Presence of unspecified artificial hip joint; Z79.82 Long term (current) use of aspirin; Z79.4 Long term (current) use of insulin; Z82.49 Family history of ischemic heart disease and other diseases of the circulatory system; Z88.8 Allergy status to other drugs, medicaments and biological substances; Z91.018 Allergy to other foods; Z68.39 Body mass index [BMI] 39.0-39.9, adult; E66.01 Morbid (severe) obesity due to excess calories; Z85.528 Personal history of other malignant neoplasm of kidney
CPT/HCPCS: 36415; 71275; 80048; 82550; 82553; 82962; 84484; 85025; 85027; 85610; 85730; 93005; 93010; 93306; 93970; 94640; 94760; 96374; 96375; J1815; J2270; J2405; J3010; Q9967

== ENCOUNTER 2017-05-20 08:59 | Emergency (ER) | payer MEDICAID ==
[2017-05-20 09:27] VITALS: BP 142/85
[2017-05-20] MEDS ORDERED: NORCO 10/325 PO ONE (11:06)
--- NOTE | 2017-05-20 11:06 | Emergency Department Report ---
Upper Extremity - HPI Chief Complaint: Extremity Injury, Upper Stated Complaint: RIGHT ARM PAIN Time Seen by Provider: 05/20/17 11:05 Upper Extremity: Left Elbow (painful from IV last week.) Occurred When: >5 Days (15 days ago) Mechanism: Other (she reports that she had IV placed while she was here 15 days ago and she's been having pain at the site since) Severity: moderate (6/10) Symptoms: Yes Pain with Movement (right elbow and before meals area), No Deformity, No Limited Range of Movement, No Numbness, No Weakness, No Swelling, No Bruising/Ecchymosis, No Laceration or Abrasion Other History: Reports that she is having pain other right elbow and right before meals area after having IV placed 15 days ago and hospital. She said that pain is 6 out of 10 and a can and she was here for blood clots though she is afraid that she has a blood clot and here to get checked. She denies any numbness or tingling to extremities. She is an eliquis. Denies any fever or chills. Taken Motrin for pain. ED Review of Systems ROS: Stated complaint: RIGHT ARM PAIN Other details as noted in HPI Comment: All other systems reviewed and negative Constitutional: denies: chills, fever Respiratory: no symptoms reported Cardiovascular: denies: chest pain, palpitations, edema, syncope Gastrointestinal: denies: abdominal pain, nausea, vomiting Musculoskeletal: arthralgia. denies: back pain, joint swelling, myalgia Skin: denies: rash Neurological: denies: headache, weakness, numbness, paresthesias, abnormal gait , vertigo ED Past Medical Hx - Past Medical History Previous Medical History?: Yes Hx Hypertension: Yes Hx Diabetes: Yes Hx GERD: Yes Hx Liver Disease: No Hx Renal Disease: Yes (kidney cancer) Hx Arthritis: Yes Hx Seizures: No Hx Asthma: No Hx COPD: No Hx HIV: No Additional medical history: pneumonia, ulcers - Surgical History Past Surgical History?: Yes Additional Surgical History: 2 hip replacements, back surgery, right arm surgery / RIGHT NEPHRECTOMY - Family History Family history: hypertension - Social History Smoking Status: Current Every Day Smoker Substance Use Type: Alcohol - Medications Home Medications: Home Medications Medication Instructions Recorded Confirmed Last Taken Type Pregabalin [Lyrica] 300 mg PO BID 12/17/13 05/05/17 05/03/17 History Valacyclovir HCl [Valtrex] 1,000 mg PO DAILY 12/17/13 05/05/17 05/03/17 History metFORMIN [Glucophage] 1,000 mg PO BIDDIAB #60 tablet 10/15/14 05/05/17 Rx Aspirin EC [Aspirin Enteric Coated 81 mg PO QDAY 12/03/15 05/05/17 05/03/17 History TAB] Diltiazem HCl [Cardizem LA] 360 mg PO DAILY 12/03/15 05/05/17 05/03/17 History Famotidine [Pepcid] 40 mg PO QHS 12/03/15 05/05/17 05/03/17 History Mirtazapine [Remeron] 15 mg PO QHS 12/03/15 05/05/17 05/03/17 History Omeprazole [PriLOSEC] 40 mg PO QDAY 12/03/15 05/05/17 05/03/17 History Simvastatin [Zocor TAB] 20 mg PO QHS 12/03/15 05/05/17 05/03/17 History Tizanidine HCl [Zanaflex] 4 mg PO TID 12/03/15 05/05/17 05/03/17 History Losartan/Hydrochlorothiazide 1 tab PO DAILY 12/28/15 05/05/17 05/03/17 History [Losartan-Hctz 100-12.5 mg Tab] Albuterol Sulfate [Proventil HFA] 2 puff INHALATION QDAY 08/19/16 05/05/1708/17 History Budesonide/Formoterol Fumarate 2 puff INHALATION Q12H 08/19/16 05/05/17 History [Symbicort 160-4.5 Mcg Inhaler] Insulin NPH Hum/Reg Insulin Hm 40 units SQ QPM 08/19/16 05/05/17 08/18/16 20:00 History [HumuLIN 70-30 Vial] 40 UNITS Insulin NPH Hum/Reg Insulin Hm 50 units SQ QAM 08/19/16 05/05/17 08/18/16 History [HumuLIN 70-30 Vial] Tiotropium [place] [Spiriva] 2 puff INHALATION QDAY 08/19/16 05/05/17 05/03/17 History Acetaminophen/Codeine [Tylenol 1 tab PO Q6H PRN #8 tab 03/23/17 05/05/17 Unknown Rx /Codeine # 3 tab] Naproxen [Naprosyn TAB] 375 mg PO BID PRN #20 tablet 03/23/17 05/05/17 05/03/17 Rx SEROquel 300 mg PO HS 05/05/17 05/05/17 05/03/17 22:00 History Apixaban [Eliquis] 5 mg PO BID 30 Days 05/07/17 Unknown Rx Apixaban [Eliquis] 10 mg PO Q12HR #7 tablet 05/07/17 Unknown Rx HYDROcodone/APAP 7.5-325 [[place] 1 each PO Q8HR PRN #10 tablet 05/07/17 Unknown Rx 7.5-325 mg TAB] traMADol [Ultram] 50 mg PO Q6HR PRN #15 tablet 05/20/17 Unknown Rx Upper Extremity Exam - Exam General: Vital signs noted. No distress. Alert and acting appropriately. This is a 46-year-old female well-nourished well-developed in no acute distress. Head and Torso: No HEENT Abnormality, No Neck Tenderness, No Chest/Lungs Abnormality, No Abdominal Tenderness, No Back Tenderness Shoulder Exam: Yes Normal Range of Motion in Shoulder, No Shoulder Tenderness, No Clavicle Tenderness, No Shoulder Deformity, No AC Joint Tenderness Arm Exam: No Arm/Humerus Tenderness, No Arm Deformity Elbow: Yes Normal Range of Motion in Elbow (No joint effusion, NTTP. no erythema ), No Elbow Tenderness (No [place]ner RAC to elbow area ), No Elbow Deformity Forearm: No Forearm Tenderness, No Forearm Deformity, No Pain with Pronation, No Pain with Supination Wrist: Yes Normal ROM in Wrist, No Wrist Tenderness, No Wrist Deformity, No Snuffbox Tenderness, No Pain with Axial Thumb Compression Hand: Yes Normal ROM in Digit(s), No Hand Tenderness, No Hand Deformity, No Digit Tenderness, No Digit(s) Deformity, No Tendon Dysfunction CMS Exam: Yes Normal Distal Pulses, Yes Normal Capillary Refill, Yes Normal Distal Sensation, No Broken Skin ED Course Vital Signs 05/20/17 09:25 Temperature 97.8 F Pulse Rate 87 Respiratory 18 Rate Blood Pressure 142/85 O2 Sat by Pulse 98 Oximetry - Reevaluation(s) Reevaluation #1: 05/20/17 13:14 receive [place] 5/325 2 tablets emergency room for pain. ED Medical Decision Making - Radiology Data Radiology results: report reviewed Ultrasound of right upper extremity reveal no SVT or DVT - Medical Decision Making Course: Patient recently with pulmonary embolism and Placed on Eliquis. She is here today because she says she was here on 05/04/2017 and IV was placed in her right antecubital area and she said since then she's been having pain at the site anterior right elbow. Physical finances for intact neurovascular tendon with good color, sensation, movement and temperature to extremities. +2 Pulses and capillary refill is less than 3 seconds. Doppler ultrasound right upper extremity reveals no SVT or DVT. Patient was given 5/325 2 tablets in the emergency room which relieved her pain. She elbow exam is normal with no signs of septic joint. She voiced understanding of diagnosis and treatment plan and discharged home in stable condition with her family member. Diagnostics: Doppler ultrasound right upper extremity negative for SVT and DVT Assessment/plan 1. Arthralgia right upper extremity patient related into IV placement Patient discharged home with prescriptions for Ultram and to follow up with her primary care physician in 2-3 days Critical care attestation.: If time is entered above; I have spent that time in minutes in the direct care of this critically ill patient, excluding procedure time. ED Disposition Clinical Impression: Arthralgia of elbow, right Disposition: DC-01 TO HOME OR SELFCARE Is pt being admited?: No Does the pt Need Aspirin: No Condition: Stable Instructions: Arthralgia (ED), Musculoskeletal Pain (ED) Additional Instructions: Follow-up via primary care physician in 2-3 days Ultram as needed for pain. Do not drive or operate heavy machinery while taking this medication as it can cause drowsiness Prescriptions: traMADol [Ultram] 50 mg PO Q6HR PRN #15 tablet PRN Reason: Pain Referrals: PRIMARY CARE,MD [Primary Care Provider] - 2-3 Days Forms: Work/School Release Form(ED)
--- NOTE | 2017-05-22 08:32 | Vascular Lab Report ---
RIGHT UPPER EXTREMITY VENOUS DUPLEX: REASON FOR EXAM: Pain of the right upper extremity COMMENTS ON THE RIGHT: All arm veins visualized are freely compressible without evidence of internal echogenicity. The subclavian and internal jugular veins are free of thrombus. Flow is spontaneous and phasic throughout. COMMENTS ON THE LEFT: The subclavian and internal jugular veins are free of thrombus. IMPRESSION: No evidence of acute or chronic deep venous thrombosis in the right upper extremity.
== END 2017-05-20 13:30 | disposition home or self-care (01) ==
LOC: ED 08:59
DX: M25.521 Pain in right elbow (principal); I10 Essential (primary) hypertension; E11.9 Type 2 diabetes mellitus without complications; K21.9 Gastro-esophageal reflux disease without esophagitis; M19.90 Unspecified osteoarthritis, unspecified site; J18.9 Pneumonia, unspecified organism; F17.200 Nicotine dependence, unspecified, uncomplicated; Z85.528 Personal history of other malignant neoplasm of kidney; Z79.82 Long term (current) use of aspirin; Z79.4 Long term (current) use of insulin

== ENCOUNTER 2017-06-19 12:27 | Emergency (ER) | payer MEDICAID ==
[2017-06-19 12:46] VITALS: BP 139/67
[2017-06-19 13:21] LABS: Basophils % (Auto) 0.5 % (0.0-1.8); Eosinophils % (Auto) 1.2 % (0.0-4.3); Hematocrit 33.4 % (30.3-42.9); Hemoglobin 11.3 gm/dl (10.1-14.3); Mean Corpuscular HGB Conc 34 % (30-34); Mean Corpuscular Hemoglobin 31 pg (28-32); Mean Corpuscular Volume 91 fl (79-97); Platelet Count 284 K/mm3 (140-440); Red Blood Count 3.66 M/mm3 (3.65-5.03); Red Cell Distribution Width 15.5 % (13.2-15.2)
[2017-06-19 14:12] LABS: Chloride 103.6 mmol/L (98-107); Glucose 94 mg/dL (65-100); Sodium 142 mmol/L (137-145)
[2017-06-19 14:30] LABS: Anion Gap 20 mmol/L; BUN/Creatinine Ratio 16.25; Blood Urea Nitrogen 13 mg/dL (7-17); Calcium 9.6 mg/dL (8.4-10.2); Carbon Dioxide 22 mmol/L (22-30)
== END 2017-06-20 01:30 | disposition left against medical advice (07) ==
LOC: ED 12:27
DX: R07.9 Chest pain, unspecified (principal); Z53.21 Procedure and treatment not carried out due to patient leaving prior to being seen by health care provider
CPT/HCPCS: 36415; 80048; 84484; 85025; 93005; 93010

== ENCOUNTER 2017-06-20 11:07 | Outpatient (CLI) | payer MEDICAID ==
--- NOTE | 2017-06-20 12:35 | Cat Scan Report ---
CTA chest: History: Malignant neoplasm of urinary origin. Technique: CT was performed with IV contrast and post processing of images using MIP and MPR technique. Findings: No evidence of pulmonary embolism. No mediastinal mass or adenopathy. No pleural pericardial effusion. 3 mm nodule right upper lobe series 2 image 71. Adjacent 1 mm nodule. There is 5 mm nodule right upper lobe series 2 image 94. 3 mm nodule left upper lobe series 2 image 59. 3 mm nodule right upper lobe series 2 image 60. Focal scarring right upper lobe. Impression: No evidence of pulmonary embolism. Multiple scattered small nodules right lung with single nodule left lung. Probably benign. Six-month followup may be advised. No consolidation pleural effusion or pneumothorax. Impression: No evidence of pulmonary embolism. Multiple noncalcified tiny nodules as detailed above.
== END 2017-06-20 11:08 | disposition home or self-care (01) ==
LOC: CT 11:07
PROVIDERS: ATTEND Internal Medicine Hematology & Oncology
DX: I26.99 Other pulmonary embolism without acute cor pulmonale (principal); R91.8 Other nonspecific abnormal finding of lung field; C68.9 Malignant neoplasm of urinary organ, unspecified; D64.9 Anemia, unspecified
CPT/HCPCS: 71275; Q9967

== ENCOUNTER 2017-08-07 08:29 | Outpatient (CLI) | payer MEDICAID ==
--- NOTE | 2017-08-07 11:20 | PET Report ---
PET/CT:08/07/17 08:29:00 CLINICAL: Renal cancer restaging RADIOPHARMACEUTICAL: 11.949mCi F18-FDG. COMPARISON: 10/25/16 PET/CT and 06/20/17 CT Chest TECHNIQUE- Following intravenous injection of F-18 FDG and an approximately 60 minute uptake period, CT and PET images from the mid skull to the upper thighs were acquired with the patient in the fasted state. No contrast was administered. The CT protocol used for this PET CT study is designed for attenuation correction and anatomic localization of PET abnormalities. This application technical designer CT is not desired to produce and cannot replace, [id number] diagnostic CT scans with specific imaging protocols for different body parts and indications. Plasma glucose at the time of this test: 120g/dl. The standardized uptake values (SUV) are normalized to patient body weight and indicate the highest activity concentration (SUV max) in a given disease site. FINDINGS: Brain--Physiologic FDG uptake in the visualized regions of the brain. Neck--Physiologic FDG uptake . Chest--Physiologic FDG uptake in mediastinal blood pool and myocardium. Lungs--Several right upper lobe and right middle lobe subcentimeter noncalcified non-FDG avid lung nodules are either stable or less prominent than on the prior exam. The most prominent is in the right middle lobe and measures 4 mm image 157, series 1. A previously described 5 mm right upper lobe lung nodule is not identified on this exam. The previously described left upper lobe lung nodule is not identified. No FDG avid lung nodule or mass. Pleura/pericardium--No abnormal uptake. Thoracic nodes--No abnormal uptake. Hepatobiliary--No abnormal uptake. Liver background SUV mean, as a reference for comparing FDG studies, is 5.1 compared to 4.3 on the last exam. No liver mass. Spleen--No abnormal uptake. Pancreas--No abnormal uptake. Adrenal Glands--No abnormal uptake. Left Kidney/Ureters/Bladder--No abnormal uptake. Status post right nephrectomy. Abdominopelvic Nodes--No abnormal uptake. Bowel/Peritoneum/Mesentery--No abnormal uptake. Pelvic organs--No abnormal uptake. Bones/Soft Tissues--No abnormal uptake. Status post L5-S1 posterior fusion. IMPRESSION- 1. Probably benign noncalcified right upper lobe and right middle lobe lung nodules which are less prominent than on the previous CT. Recommend followup with CT Chest in six months. 2. No suspicious FDG uptake. 3. Status post right nephrectomy. 4. No evidence of hepatic, mike or skeletal metastasis.
== END 2017-08-07 08:30 | disposition home or self-care (01) ==
LOC: PET 08:29
PROVIDERS: ATTEND Internal Medicine Hematology & Oncology
DX: C68.9 Malignant neoplasm of urinary organ, unspecified (principal); D64.9 Anemia, unspecified; R06.02 Shortness of breath; R91.8 Other nonspecific abnormal finding of lung field; M43.27 Fusion of spine, lumbosacral region; I10 Essential (primary) hypertension; E11.9 Type 2 diabetes mellitus without complications; Z90.5 Acquired absence of kidney
CPT/HCPCS: 78815; 82962; A9552

== ENCOUNTER 2017-12-20 21:43 | Emergency (ER) | payer MEDICAID ==
[2017-12-20 22:34] VITALS: BP 117/65
[2017-12-21] MEDS ORDERED: TORADOL IM ONE (02:11)
--- NOTE | 2017-12-21 02:19 | Emergency Department Report ---
ED Fall HPI - General Chief Complaint: Fall Stated Complaint: NECK,BACK PAIN Time Seen by Provider: 12/21/17 02:09 Source: patient Mode of arrival: Wheelchair - History of Present Illness Initial Comments: 47-year-old -Nepalese female with a chronic history of pain, arthritis, asthma, diabetes, GERD, hypertension comes in to ER after falling backwards on a piece of furniture while at the furniture store approximately 1:00 today. Patient reports she wasn't hurting at that point all of a sudden started having pain in her neck and back. Patient complains of neck pain back pain that is low. She also complains of bilateral 5 pain and neck pain. MD Complaint: fall -: This afternoon (Friday around 1 PM.) Time: 13:00 Fall From: standing When Fall Occurred: 4-[address] Fall Occurred: other (furniture store) Loss of Consciousness: none Prolonged Down Time?: no Symptoms Prior to Fall: none Location: neck, back Location - Extremities: Left: Thigh, Right: Thigh Severity: severe Severity scale (0 -10): 10 Quality: sharp, aching Associated Symptoms: neck pain. denies: headache, chest paint, shortness of breath, abdominal pain, lightheaded, vertigo, confusion - Related Data Home Medications Medication Instructions Recorded Confirmed Last Taken Pregabalin [Lyrica] 300 mg PO BID 12/17/13 12/20/17 12/20/17 Valacyclovir HCl [Valtrex] 1,000 mg PO DAILY 12/17/13 12/20/17 12/20/17 Aspirin EC [Aspirin Enteric Coated 81 mg PO QDAY 12/03/15 12/20/17 12/20/17 TAB] Diltiazem HCl [Cardizem LA] 360 mg PO DAILY 12/03/15 12/20/17 12/20/17 Famotidine [Pepcid] 40 mg PO QHS 12/03/15 12/20/17 12/20/17 Mirtazapine [Remeron] 15 mg PO QHS 12/03/15 12/20/17 12/20/17 Omeprazole [PriLOSEC] 40 mg PO QDAY 12/03/15 12/20/17 12/20/17 Simvastatin [Zocor TAB] 20 mg PO QHS 12/03/15 12/20/1712/20/18 Tizanidine HCl [Zanaflex] 4 mg PO TID 12/03/15 12/20/17 12/20/17 Losartan/Hydrochlorothiazide 1 tab PO DAILY 12/28/15 12/20/17 12/20/17 [Losartan-Hctz 100-12.5 mg Tab] Albuterol Sulfate [Proventil HFA] 2 puff INHALATION QDAY 08/19/16 12/20/1712/20 Budesonide/Formoterol Fumarate 2 puff INHALATION Q12H 08/19/16 12/20/17 12/20/17 [Symbicort 160-4.5 Mcg Inhaler] Insulin NPH Hum/Reg Insulin Hm 40 units SQ QPM 08/19/16 05/05/17 12/20/17 [HumuLIN 70-30 Vial] Insulin NPH Hum/Reg Insulin Hm 50 units SQ QAM 08/19/16 05/05/17 12/20/17 [HumuLIN 70-30 Vial] Tiotropium [place] [Spiriva] 2 puff INHALATION QDAY 08/19/16 12/20/17 12/20/17 SEROquel 300 mg PO HS 05/05/17 12/20/17 12/20/17 Oxycodone HCl [Roxicodone TAB] 15 mg PO 4XD 12/20/17 12/20/17 12/20/17 Previous Rx's Medication Instructions Recorded Last Taken Type Apixaban [Eliquis] 10 mg PO Q12HR #7 tablet 05/07/17 Unknown Rx Allergies Allergy/AdvReac Type Severity Reaction Status Date / Time hydromorphone HCl Allergy Hives Verified 09/25/13 13:15 [From Dilaudid] tomato [Tomato] Allergy Hives Verified 12/17/13 20:12 ED Review of Systems ROS: Stated complaint: NECK,BACK PAIN Other details as noted in HPI Constitutional: denies: chills, fever Eyes: denies: eye pain, eye discharge, vision change ENT: denies: ear pain, throat pain Respiratory: denies: cough, shortness of breath, wheezing Cardiovascular: denies: chest pain, palpitations Endocrine: no symptoms reported Gastrointestinal: denies: abdominal pain, nausea, diarrhea Genitourinary: denies: urgency, dysuria, discharge Musculoskeletal: back pain (lower back), other (neck pain). denies: joint swelling, arthralgia Skin: denies: rash, lesions Neurological: denies: headache, weakness, paresthesias Psychiatric: denies: anxiety, depression Hematological/Lymphatic: denies: easy bleeding, easy bruising ED Past Medical Hx - Past Medical History Hx Hypertension: Yes Hx Diabetes: Yes Hx GERD: Yes Hx Liver Disease: No Hx Renal Disease: Yes (kidney cancer) Hx Arthritis: Yes Hx Seizures: No Hx Asthma: Yes Hx COPD: No Hx HIV: No Additional medical history: pneumonia, ulcers - Surgical History Additional Surgical History: 2 hip replacements, back surgery, right arm surgery / RIGHT NEPHRECTOMY - Social History Smoking Status: Current Every Day Smoker Substance Use Type: Alcohol - Medications Home Medications: Home Medications Medication Instructions Recorded Confirmed Last Taken Type Pregabalin [Lyrica] 300 mg PO BID 12/17/13 12/20/17 12/20/17 History Valacyclovir HCl [Valtrex] 1,000 mg PO DAILY 12/17/13 12/20/17 12/20/17 History Aspirin EC [Aspirin Enteric Coated 81 mg PO QDAY 12/03/15 12/20/17 12/20/17 History TAB] Diltiazem HCl [Cardizem LA] 360 mg PO DAILY 12/03/15 12/20/17 12/20/17 History Famotidine [Pepcid] 40 mg PO QHS 12/03/15 12/20/17 12/20/17 History Mirtazapine [Remeron] 15 mg PO QHS 12/03/15 12/20/17 12/20/17 History Omeprazole [PriLOSEC] 40 mg PO QDAY 12/03/15 12/20/17 12/20/17 History Simvastatin [Zocor TAB] 20 mg PO QHS 12/03/15 12/20/17 12/20/17 History Tizanidine HCl [Zanaflex] 4 mg PO TID 12/03/15 12/20/17 12/20/17 History Losartan/Hydrochlorothiazide 1 tab PO DAILY 12/28/15 12/20/17 12/20/17 History [Losartan-Hctz 100-12.5 mg Tab] Albuterol Sulfate [Proventil HFA] 2 puff INHALATION QDAY 08/19/16 12/20/1712/20 History Budesonide/Formoterol Fumarate 2 puff INHALATION Q12H 08/19/16 12/20/17 History [Symbicort 160-4.5 Mcg Inhaler] Insulin NPH Hum/Reg Insulin Hm 40 units SQ QPM 08/19/16 05/05/17 12/20/17 History [HumuLIN 70-30 Vial] Insulin NPH Hum/Reg Insulin Hm 50 units SQ QAM 08/19/16 05/05/17 12/20/17 History [HumuLIN 70-30 Vial] Tiotropium [place] [Spiriva] 2 puff INHALATION QDAY 08/19/16 12/20/17 12/20/17 History SEROquel 300 mg PO HS 05/05/17 12/20/17 12/20/17 History Apixaban [Eliquis] 10 mg PO Q12HR #7 tablet 05/07/17 Unknown Rx Oxycodone HCl [Roxicodone TAB] 15 mg PO 4XD 12/20/17 12/20/17 12/20/17 History ED Physical Exam - General Limitations: No Limitations General appearance: alert, in no apparent distress - Head Head exam: Present: atraumatic, normocephalic - Eye Eye exam: Present: normal appearance - ENT ENT exam: Present: mucous membranes moist - Neck Neck exam: Present: tenderness, other (swelling to the posterior neck). Absent : full ROM - Respiratory Respiratory exam: Present: normal lung sounds bilaterally. Absent: respiratory distress - Cardiovascular Cardiovascular Exam: Present: regular rate, normal rhythm. Absent: systolic murmur, diastolic murmur, rubs, gallop - GI/Abdominal GI/Abdominal exam: Present: soft, normal bowel sounds - Expanded Lower Extremity Exam Left Upper Leg exam: Present: full ROM, tenderness. Absent: swelling Knee exam: Present: normal inspection, full ROM. Absent: tenderness Lower Leg exam: Present: normal inspection, full ROM. Absent: tenderness Ankle exam: Present: normal inspection, full ROM. Absent: tenderness Foot/Toe exam: Present: normal inspection, full ROM. Absent: tenderness Neuro vascular tendon exam: Present: no vascular compromise - Back Exam Back exam: Present: paraspinal tenderness, other (midline scar to the lower back ) - Neurological Exam Neurological exam: Present: alert, oriented X3 - Psychiatric Psychiatric exam: Present: normal affect, normal mood - Skin Skin exam: Present: warm, dry, intact, normal color. Absent: rash ED Course Vital Signs 12/20/17 22:30 Temperature 98.2 F Pulse Rate 92 H Respiratory 18 Rate Blood Pressure 117/65 O2 Sat by Pulse 95 Oximetry ED Medical Decision Making - Radiology Data Radiology results: report reviewed, image reviewed FINDINGS: There is previous fusion with instrumentation at the L5-S1 level. The upper lumbar discs are normal height. There no evidence of acute fracture. The SI joints appear normal. There are multiple surgical clips in the abdomen. IMPRESSION: Previous L5-S1 fusion without hardware complication. No evidence of acute fracture. FINDINGS: There is mild narrowing of the C4-C5 disc. Remaining disc heights and alignment appear normal. The canal size is normal. The facet joints are well maintained. The prevertebral soft tissues and C1-C2 articulation appear intact. IMPRESSION: Very mild narrowing of the C4-C5 disc. No acute process otherwise. - Medical Decision Making Patient's been evaluated by this provider fast track. CT of the neck x-ray of the lumbar sacral ordered Toradol injection ordered discussed the patient that her x-rays are normal that we would discharge her to have follow-up to primary care provider or pain management provider. Appears the patient was seen on the 20 of December and had Roxicodone 15 mg 4 times a day. Patient continue with her medication as prescribed Critical care attestation.: If time is entered above; I have spent that time in minutes in the direct care of this critically ill patient, excluding procedure time. ED Disposition Clinical Impression: Neck pain, acute, Chronic radicular pain of lower back Fall Qualifiers: Encounter type: initial encounter Qualified Code(s): W19.XXXA - Unspecified fall, initial encounter Disposition: DC-01 TO HOME OR SELFCARE Is pt being admited?: No Does the pt Need Aspirin: No Condition: Stable Instructions: Fall Prevention (ED), Cervical Sprain (ED), Chronic Back Pain (ED ) Additional Instructions: Continue with her pain medication as prescribed on 12/20/2017. Follow up which her pain management provider as well as her primary care provider. Referrals: PRIMARY CARE, [Primary Care Provider] - 3-5 Days
--- NOTE | 2017-12-21 02:45 | Cat Scan Report ---
FINAL REPORT EXAM: CT CERVICAL SPINE WO CON HISTORY: neck pain decreased range of motion s/p fall TECHNIQUE: Routine axial imaging was obtained of the cervical spine without IV contrast with sagittal and coronal reconstructions. FINDINGS: There is mild narrowing of the C4-C5 disc. Remaining disc heights and alignment appear normal. The canal size is normal. The facet joints are well maintained. The prevertebral soft tissues and C1-C2 articulation appear intact. IMPRESSION: Very mild narrowing of the C4-C5 disc. No acute process otherwise.
--- NOTE | 2017-12-21 03:40 | XRay Report ---
FINAL REPORT EXAM: XR SPINE LUMBOSACRAL 2-3V HISTORY: lower back pain status post fall TECHNIQUE: Three views lumbar spine were submitted. FINDINGS: There is previous fusion with instrumentation at the L5-S1 level. The upper lumbar discs are normal height. There no evidence of acute fracture. The SI joints appear normal. There are multiple surgical clips in the abdomen. IMPRESSION: Previous L5-S1 fusion without hardware complication. No evidence of acute fracture.
== END 2017-12-21 04:21 | disposition home or self-care (01) ==
LOC: ED 21:43
DX: M54.2 Cervicalgia (principal); M54.5 Low back pain; G89.29 Other chronic pain; M79.652 Pain in left thigh; M79.651 Pain in right thigh; I10 Essential (primary) hypertension; E11.9 Type 2 diabetes mellitus without complications; M19.90 Unspecified osteoarthritis, unspecified site; J45.909 Unspecified asthma, uncomplicated; F17.200 Nicotine dependence, unspecified, uncomplicated; Z96.643 Presence of artificial hip joint, bilateral; Z90.5 Acquired absence of kidney; Z85.528 Personal history of other malignant neoplasm of kidney; Z88.5 Allergy status to narcotic agent; Z91.018 Allergy to other foods; W19.XXXA Unspecified fall, initial encounter; Y93.89 Activity, other specified; Y99.8 Other external cause status; Y92.512 Supermarket, store or market as the place of occurrence of the external cause
CPT/HCPCS: 72100; 72125; 96372; 99284; J1885

== ENCOUNTER 2017-12-23 13:26 | Outpatient (CLI) | payer MEDICAID ==
[2017-12-23 14:24] LABS: Blood Urea Nitrogen 14 mg/dL (7-17)
--- NOTE | 2017-12-23 16:48 | Cat Scan Report ---
FINAL REPORT PROCEDURE: CT CHEST W CON TECHNIQUE: Computerized axial tomography of the chest was performed during the IV injection of iodinated nonionic contrast. HISTORY: MALIGNANT NEOPLASM OF URINARY ORGAN COMPARISON: 05/04/2017 TECHNICAL QUALITY: Satisfactory. FINDINGS: Heart and pericardium: Normal. Thoracic aorta: Normal. Pulmonary vasculature: Normal. Lymph nodes: No enlarged thoracic lymph nodes. Lungs: 2 millimeter subpleural nodule is noted in the right upper lobe as visualized in the image 27 of series 3. A 3 millimeters subpleural nodule is noted in the right upper lobe as seen image 46 of series 3. There are no infiltrates. No other mass lesions are identified.. Pleural space: No effusion, thickening, or pneumothorax. Musculoskeletal structures: No significant abnormality. Upper abdominal structures: No significant abnormality. IMPRESSION: There is interval decrease in the size of a right upper lobe nodule as visualized image 27 of series 3 which no measures about 2 millimeters compared to the prior measurement of 4 millimeters. A new 3 millimeter nodule is noted in the right upper lobe as seen image 46 of series 3. This is suspicious for an early metastatic nodule.
--- NOTE | 2017-12-23 17:56 | Cat Scan Report ---
FINAL REPORT PROCEDURE: CT ABDOMEN PELVIS W CON TECHNIQUE: Computerized axial tomography of the abdomen and pelvis was performed after the IV injection of iodinated nonionic contrast. HISTORY: MALIGNANT NEOPLASM OF URINARY ORGAN. COMPARISON: Prior CT scan abdomen and pelvis 04/27/2016 FINDINGS: Lower Lung abreu: Minimal dependent atelectasis visualized. Lung bases otherwise are unremarkable. Upper Abdomen: The liver showed no focal abnormalities. There is subtle decreased density along the right side of the falciform ligament anteriorly within the liver suggesting focal fatty infiltration. This is unchanged. The liver is otherwise unremarkable. The gallbladder showed no focal abnormality. The adrenal glands, the pancreas and spleen are unremarkable. Kidneys, Ureters and Urinary bladder: Right kidney surgically absent in the interval since the prior exam. Left kidney and visualized portion of the left ureter are unremarkable. Distal left ureter is obscured by metallic artifact from bilateral hip prosthesis. Visualized portions of the urinary bladder are unremarkable. Large portion of the urinary bladder is obscured by metallic artifact from the hip prosthesis and therefore evaluation is limited. Retroperitoneum: Atherosclerotic changes are seen in the abdominal aorta. No aneurysm is visualized. Nonspecific subcentimeter lymph nodes are seen in the retroperitoneum. No pathologically enlarged lymph nodes are identified. Bowel: No focal bowel loop abnormalities are seen. There is no evidence of bowel obstruction ascites or free intraperitoneal gas. Normal-appearing appendix is seen in the right lower quadrant. Reproductive organs: The uterus is retroverted otherwise unremarkable. No abnormal adnexal masses are seen. Other: Postsurgical changes are seen at the L5-S1 level from prior fusion procedure. No subluxation is seen. No acute bony abnormalities are identified. IMPRESSION: Interval right nephrectomy. Masses are seen in the right renal fossa. Focal fatty infiltration left lobe of the liver as described. This is unchanged. Visualized portion of the distal left ureter and portions of the urinary bladder are poorly visualized secondary to metallic artifact from bilateral hip prosthesis and cannot be accurately commented on. The visualized portions did not show any focal abnormality. Prior fusion procedure L5-S1 level as described.
== END 2017-12-23 13:27 | disposition home or self-care (01) ==
LOC: CT 13:26
PROVIDERS: ATTEND Internal Medicine Hematology & Oncology
DX: C68.9 Malignant neoplasm of urinary organ, unspecified (principal); J98.11 Atelectasis; D64.9 Anemia, unspecified; I70.0 Atherosclerosis of aorta; M43.27 Fusion of spine, lumbosacral region; K76.0 Fatty (change of) liver, not elsewhere classified; R91.1 Solitary pulmonary nodule; R10.9 Unspecified abdominal pain; Z90.5 Acquired absence of kidney; Z96.643 Presence of artificial hip joint, bilateral
CPT/HCPCS: 36415; 71260; 74177; 82565; 84520; Q9967

== ENCOUNTER 2018-01-12 09:59 | Emergency (ER) | payer MEDICAID ==
[2018-01-12 10:47] VITALS: BP 167/77
[2018-01-12] MEDS ORDERED: TESSALON PERLES PO ONE (13:19)
--- NOTE | 2018-01-12 13:24 | Emergency Department Report ---
- General Chief Complaint: Nosebleed Stated Complaint: NOSE BLEED Time Seen by Provider: 01/12/18 13:18 Source: patient Mode of arrival: Ambulatory Limitations: No Limitations - History of Present Illness Initial Comments: 47-year-old -Iranian female with past medical history diabetes hypertension hypercholesterolemia and bipolar. She reports that she gets allergy testing twice with every Friday and Friday. She noted on Friday she started with a nosebleed. Persistent cough and yellow greenish mucous, chest pain with cough, and having hot and cold flashes. She reports she had a temperature yesterday with the temperature maximum 102. She is a diabetic and has not taken her insulin in over a month. She reports that her blood sugars have been running between 87 and 105. Patient mary jo currently does not have a primary care provider or diabetic counselor. MD Complaint: fever, cough, rhinorrhea, nasal congestion -: days(s) (1) Quality: sharp Consistency: intermittent Improves With: nothing Worsens With: nothing Associated Symptoms: fever, rhinorrhea, nasal congestion, cough, chest pain. denies: chills, headache, nausea, vomiting, diarrhea, rash Treatments Prior to Arrival: none - Related Data Home Medications Medication Instructions Recorded Confirmed Last Taken Pregabalin [Lyrica] 300 mg PO BID 12/17/13 12/20/17 12/20/17 Valacyclovir HCl [Valtrex] 1,000 mg PO DAILY 12/17/13 12/20/17 12/20/17 Aspirin EC [Aspirin Enteric Coated 81 mg PO QDAY 12/03/15 12/20/17 12/20/17 TAB] Diltiazem HCl [Cardizem LA] 360 mg PO DAILY 12/03/15 12/20/17 12/20/17 Famotidine [Pepcid] 40 mg PO QHS 12/03/15 12/20/17 12/20/17 Mirtazapine [Remeron] 15 mg PO QHS 12/03/15 12/20/17 12/20/17 Omeprazole [PriLOSEC] 40 mg PO QDAY 12/03/15 12/20/17 12/20/17 Simvastatin [Zocor TAB] 20 mg PO QHS 12/03/15 12/20/17 12/20/17 Tizanidine HCl [Zanaflex] 4 mg PO TID 12/03/15 12/20/17 12/20/17 Losartan/Hydrochlorothiazide 1 tab PO DAILY 12/28/15 12/20/17 12/20/17 [Losartan-Hctz 100-12.5 mg Tab] Albuterol Sulfate [Proventil HFA] 2 puff INHALATION QDAY 08/19/16 12/20/1712/20 Budesonide/Formoterol Fumarate 2 puff INHALATION Q12H 08/19/16 12/20/17 12/20/17 [Symbicort 160-4.5 Mcg Inhaler] Insulin NPH Hum/Reg Insulin Hm 40 units SQ QPM 08/19/16 05/05/17 12/20/17 [HumuLIN 70-30 Vial] Insulin NPH Hum/Reg Insulin Hm 50 units SQ QAM 08/19/16 05/05/17 12/20/17 [HumuLIN 70-30 Vial] Tiotropium [place] [Spiriva] 2 puff INHALATION QDAY 08/19/16 12/20/17 12/20/17 SEROquel 300 mg PO HS 05/05/17 12/20/17 12/20/17 Oxycodone HCl [Roxicodone TAB] 15 mg PO 4XD 12/20/17 12/20/17 12/20/17 Previous Rx's Medication Instructions Recorded Last Taken Type Apixaban [Eliquis] 10 mg PO Q12HR #7 tablet 05/07/17 Unknown Rx Allergies Allergy/AdvReac Type Severity Reaction Status Date / Time hydromorphone HCl Allergy Hives Verified 09/25/13 13:15 [From Dilaudid] tomato [Tomato] Allergy Hives Verified 12/17/13 20:12 ED Review of Systems ROS: Stated complaint: NOSE BLEED Other details as noted in HPI Constitutional: fever (MAXIMUM TEMPERATURE of 102) Eyes: denies: eye pain, eye discharge, vision change ENT: congestion Respiratory: cough Cardiovascular: denies: chest pain, palpitations Endocrine: no symptoms reported Gastrointestinal: denies: abdominal pain, nausea, diarrhea Genitourinary: denies: urgency, dysuria, discharge Musculoskeletal: denies: back pain, joint swelling, arthralgia Skin: denies: rash, lesions Neurological: denies: headache, weakness, paresthesias Psychiatric: denies: anxiety, depression Hematological/Lymphatic: denies: easy bleeding, easy bruising ED Past Medical Hx - Past Medical History Hx Hypertension: Yes Hx Diabetes: Yes Hx GERD: Yes Hx Liver Disease: No Hx Renal Disease: Yes (kidney cancer) Hx Arthritis: Yes Hx Seizures: No Hx Asthma: Yes Hx COPD: No Hx HIV: No Additional medical history: pneumonia, ulcers - Surgical History Additional Surgical History: 2 hip replacements, back surgery, right arm surgery / RIGHT NEPHRECTOMY - Social History Smoking Status: Current Every Day Smoker Substance Use Type: Prescribed - Medications Home Medications: Home Medications Medication Instructions Recorded Confirmed Last Taken Type Pregabalin [Lyrica] 300 mg PO BID 12/17/13 12/20/17 12/20/17 History Valacyclovir HCl [Valtrex] 1,000 mg PO DAILY 12/17/13 12/20/17 12/20/17 History Aspirin EC [Aspirin Enteric Coated 81 mg PO QDAY 12/03/15 12/20/17 12/20/17 History TAB] Diltiazem HCl [Cardizem LA] 360 mg PO DAILY 12/03/15 12/20/17 12/20/17 History Famotidine [Pepcid] 40 mg PO QHS 12/03/15 12/20/17 12/20/17 History Mirtazapine [Remeron] 15 mg PO QHS 12/03/15 12/20/17 12/20/17 History Omeprazole [PriLOSEC] 40 mg PO QDAY 12/03/15 12/20/17 12/20/17 History Simvastatin [Zocor TAB] 20 mg PO QHS 12/03/15 12/20/17 12/20/17 History Tizanidine HCl [Zanaflex] 4 mg PO TID 12/03/15 12/20/17 12/20/17 History Losartan/Hydrochlorothiazide 1 tab PO DAILY 12/28/15 12/20/17 12/20/17 History [Losartan-Hctz 100-12.5 mg Tab] Albuterol Sulfate [Proventil HFA] 2 puff INHALATION QDAY 08/19/16 12/20/1712/20 History Budesonide/Formoterol Fumarate 2 puff INHALATION Q12H 08/19/16 12/20/17 History [Symbicort 160-4.5 Mcg Inhaler] Insulin NPH Hum/Reg Insulin Hm 40 units SQ QPM 08/19/16 05/05/17 12/20/17 History [HumuLIN 70-30 Vial] Insulin NPH Hum/Reg Insulin Hm 50 units SQ QAM 08/19/16 05/05/17 12/20/17 History [HumuLIN 70-30 Vial] Tiotropium [place] [Spiriva] 2 puff INHALATION QDAY 08/19/16 12/20/17 12/20/17 History SEROquel 300 mg PO HS 05/05/17 12/20/17 12/20/17 History Apixaban [Eliquis] 10 mg PO Q12HR #7 tablet 05/07/17 Unknown Rx Oxycodone HCl [Roxicodone TAB] 15 mg PO 4XD 12/20/17 12/20/17 12/20/17 History ED Physical Exam - General Limitations: No Limitations General appearance: alert, in no apparent distress - Head Head exam: Present: atraumatic, normocephalic - Eye Eye exam: Present: normal appearance - ENT ENT exam: Present: mucous membranes moist, TM's normal bilaterally, normal external ear exam - Neck Neck exam: Present: normal inspection - Respiratory Respiratory exam: Present: normal lung sounds bilaterally. Absent: respiratory distress - Cardiovascular Cardiovascular Exam: Present: regular rate, normal rhythm. Absent: systolic murmur, diastolic murmur, rubs, gallop - GI/Abdominal GI/Abdominal exam: Present: soft, normal bowel sounds - Extremities Exam Extremities exam: Present: normal inspection, full ROM. Absent: tenderness - Back Exam Back exam: Present: normal inspection, full ROM - Neurological Exam Neurological exam: Present: alert, oriented X3 - Psychiatric Psychiatric exam: Present: normal affect, normal mood - Skin Skin exam: Present: warm, dry, intact, normal color. Absent: rash ED Course Vital Signs 01/12/18 10:41 Temperature 98.3 F Pulse Rate 85 Blood Pressure 167/77 O2 Sat by Pulse 100 Oximetry ED Medical Decision Making - Radiology Data Radiology results: report reviewed, image reviewed FINDINGS: PA and lateral chest radiographs again demonstrate normal cardiomediastinal silhouette, clear well-expanded lungs and a right chest port tip along the SVC. Bilateral humeral head sclerosis and possible osteopenia. CONCLUSION: No acute chest process with stable right chest port in this patient with possible sickle cell, as described. Please correlate. Thank you for the opportunity to participate in this patient's care. Transcribed By: RS Dictated By: CLINT DANG MD Electronically Authenticated By: CLINT DANG MD Signed Date/Time: 01/12/18 3438 - Medical Decision Making Patient's been evaluated by this provider fast track. I discussed the patient we will check a chest x-ray since she's had fever cough and yellow-green mucus with a history of diabetes. 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 Patient verbalizes understanding. Critical care attestation.: If time is entered above; I have spent that time in minutes in the direct care of this critically ill patient, excluding procedure time. ED Disposition Clinical Impression: Allergic rhinitis Qualifiers: Allergic rhinitis trigger: pollen Allergic rhinitis seasonality: seasonal Qualified Code(s): J30.1 - Allergic rhinitis due to pollen Disposition: DC-01 TO HOME OR SELFCARE Is pt being admited?: No Does the pt Need Aspirin: No Condition: Stable Instructions: Allergic Rhinitis (ED) Additional Instructions: Please continue with all her chronic medication. I recommended to follow back up with her freight car builder. Also will refer you to [facility] for primary care. Referrals: PRIMARY CAREMD [Primary Care Provider] - 3-5 Days [facility] [Provider Group] - 3-5 Days Forms: Work/School Release Form(ED)
--- NOTE | 2018-01-12 13:37 | XRay Report ---
CHEST 2 VIEWS INDICATION: Cough, fever, chest pleurisy. COMPARISON: 11/15/2016 FINDINGS: PA and lateral chest radiographs again demonstrate normal cardiomediastinal silhouette, clear well-expanded lungs and a right chest port tip along the SVC. Bilateral humeral head sclerosis and possible osteopenia. CONCLUSION: No acute chest process with stable right chest port in this patient with possible sickle cell, as described. Please correlate. Thank you for the opportunity to participate in this patient's care.
== END 2018-01-12 14:28 | disposition home or self-care (01) ==
LOC: ED 09:59
DX: J45.909 Unspecified asthma, uncomplicated (principal); K21.9 Gastro-esophageal reflux disease without esophagitis; E11.9 Type 2 diabetes mellitus without complications; M19.90 Unspecified osteoarthritis, unspecified site; F17.200 Nicotine dependence, unspecified, uncomplicated; Z96.649 Presence of unspecified artificial hip joint; Z90.5 Acquired absence of kidney; Z85.528 Personal history of other malignant neoplasm of kidney; Z88.5 Allergy status to narcotic agent; Z91.018 Allergy to other foods
CPT/HCPCS: 71046; 99283

== ENCOUNTER 2018-03-05 06:38 | Outpatient (CLI) | payer MEDICAID ==
--- NOTE | 2018-03-05 09:59 | PET Report ---
PET/CT:03/05/18 06:38:00 CLINICAL: Renal cancer restaging. RADIOPHARMACEUTICAL: 13.28mCi F18-FDG. COMPARISON: 08/07/17 PET/CT and CT CAP 12/23/17 TECHNIQUE- Following intravenous injection of F-18 FDG and an approximately 60 minute uptake period, CT and PET images from the mid skull to the upper thighs were acquired with the patient in the fasted state. No contrast was administered. The CT protocol used for this PET CT study is designed for attenuation correction and anatomic localization of PET abnormalities. This school age teacher CT is not desired to produce and cannot replace, [id number] diagnostic CT scans with specific imaging protocols for different body parts and indications. Plasma glucose at the time of this test: 122g/dl. The standardized uptake values (SUV) are normalized to patient body weight and indicate the highest activity concentration (SUV max) in a given disease site. FINDINGS: Brain--Physiologic FDG uptake in the visualized regions of the brain. Neck--Physiologic FDG uptake in mucosal structures. Chest--Physiologic FDG uptake in mediastinal blood pool and myocardium. Lungs--No abnormal uptake. No pulmonary nodule or mass. The previously described right upper lobe and right middle lobe subcentimeter lung nodules are no longer identified. The right upper lobe subcentimeter subpleural nodules identified on the recent CT chest are also not identified on this exam. Pleura/pericardium--No abnormal uptake. Thoracic nodes--No abnormal uptake. Hepatobiliary--No abnormal uptake. Liver background SUV mean, as a reference for comparing FDG studies, is 4.3 compared to 4.7 on the last exam. No liver mass. Spleen--No abnormal uptake. Pancreas--No abnormal uptake. Adrenal Glands--No abnormal uptake. Kidneys/Ureters/Bladder--No abnormal uptake. Status post right nephrectomy. Abdominopelvic Nodes--No abnormal uptake. Bowel/Peritoneum/Mesentery--No abnormal uptake. Pelvic organs--No abnormal uptake. Bones/Soft Tissues--No abnormal uptake. No suspicious bone lesions. IMPRESSION- Negative study with no evidence of disease recurrence or metastasis.
== END 2018-03-05 06:39 | disposition home or self-care (01) ==
LOC: PET 06:38
PROVIDERS: ATTEND Internal Medicine Hematology & Oncology
DX: R91.8 Other nonspecific abnormal finding of lung field (principal); C68.9 Malignant neoplasm of urinary organ, unspecified; D64.9 Anemia, unspecified; G47.33 Obstructive sleep apnea (adult) (pediatric); R06.02 Shortness of breath; F17.210 Nicotine dependence, cigarettes, uncomplicated; I10 Essential (primary) hypertension; E11.9 Type 2 diabetes mellitus without complications; K21.9 Gastro-esophageal reflux disease without esophagitis; E66.9 Obesity, unspecified; E78.5 Hyperlipidemia, unspecified; G62.9 Polyneuropathy, unspecified; C64.9 Malignant neoplasm of unspecified kidney, except renal pelvis; I25.10 Atherosclerotic heart disease of native coronary artery without angina pectoris; J45.909 Unspecified asthma, uncomplicated; M19.90 Unspecified osteoarthritis, unspecified site; E07.9 Disorder of thyroid, unspecified; Z98.890 Other specified postprocedural states; Z68.39 Body mass index [BMI] 39.0-39.9, adult
CPT/HCPCS: 78815; 82962; A9552

== ENCOUNTER 2018-04-11 13:35 | Emergency (ER) | payer MEDICAID ==
[2018-04-11 14:33] LABS: Basophils % (Auto) 0.7 % (0.0-1.8); Eosinophils # (Auto) 0.1 K/mm3 (0.0-0.4); Eosinophils % (Auto) 1.6 % (0.0-4.3); Hematocrit 35.3 % (30.3-42.9); Hemoglobin 11.7 gm/dl (10.1-14.3); Lymphocytes # (Auto) 2.1 K/mm3 (1.2-5.4); Lymphocytes % (Auto) 35.7 % (13.4-35.0); Mean Corpuscular HGB Conc 33 % (30-34); Mean Corpuscular Hemoglobin 31 pg (28-32); Mean Corpuscular Volume 93 fl (79-97); Monocytes # (Auto) 0.3 K/mm3 (0.0-0.8); Monocytes % (Auto) 4.7 % (0.0-7.3); Platelet Count 309 K/mm3 (140-440); Red Blood Count 3.79 M/mm3 (3.65-5.03); Red Cell Distribution Width 14.3 % (13.2-15.2)
[2018-04-11 14:40] LABS: BUN/Creatinine Ratio 20; Blood Urea Nitrogen 16 mg/dL (7-17); Calcium 9.9 mg/dL (8.4-10.2); Hemolysis Index 8
[2018-04-11 14:48] LABS: INR 1.13 (0.87-1.13)
[2018-04-11 14:49] LABS: Partial Thromboplastin Time 29.8 Sec. (24.2-36.6)
--- NOTE | 2018-04-11 15:22 | Emergency Department Report ---
ED Shortness of Breath HPI - General Chief Complaint: Dyspnea/Respdistress Stated Complaint: HEAVY/PAINFUL BREATHING Time Seen by Provider: 04/11/18 14:22 Source: patient Mode of arrival: Ambulatory Limitations: No Limitations - History of Present Illness Initial Comments: ms jordan is a 47 year-old woman with hx of bipolar d/o, HTN, DM, PE on eliquis , kidney cancer s/p R nephrectomy who presents with shortness of breath. Dyspnea x 2 days with left sided pleuritic chest pain. has been coughing. Non- productive. No radiation of chest pain. Not positional. No fever. No other complaints. Has been compliant with BID eliquis per patient. MD Complaint: shortness of breath, chest pain -: Gradual Worsens With: coughing, inspiration Associated Symptoms: cough Treatments Prior to Arrival: none - Related Data Home Medications Medication Instructions Recorded Confirmed Last Taken Pregabalin [Lyrica] 300 mg PO BID 12/17/13 04/11/18 12/20/17 Valacyclovir HCl [Valtrex] 1,000 mg PO DAILY 12/17/13 04/11/18 12/20/17 Aspirin EC [Aspirin Enteric Coated 81 mg PO QDAY 12/03/15 04/11/18 12/20/17 TAB] Diltiazem HCl [Cardizem LA] 360 mg PO DAILY 12/03/15 04/11/18 12/20/17 Famotidine [Pepcid] 40 mg PO QHS 12/03/15 04/11/18 12/20/17 Mirtazapine [Remeron] 15 mg PO QHS 12/03/15 04/11/18 12/20/17 Omeprazole [PriLOSEC] 40 mg PO QDAY 12/03/15 04/11/18 12/20/17 Simvastatin [Zocor TAB] 20 mg PO QHS 12/03/15 04/11/18 12/20/17 Tizanidine HCl [Zanaflex] 4 mg PO TID 12/03/15 04/11/18 12/20/17 Losartan/Hydrochlorothiazide 1 tab PO DAILY 12/28/15 04/11/18 12/20/17 [Losartan-Hctz 100-12.5 mg Tab] Albuterol Sulfate [Proventil HFA] 2 puff INHALATION QDAY 08/19/16 04/11/1812/20 Budesonide/Formoterol Fumarate 2 puff INHALATION Q12H 08/19/16 04/11/18 12/20/17 [Symbicort 160-4.5 Mcg Inhaler] Tiotropium [place] [Spiriva] 2 puff INHALATION QDAY 08/19/16 04/11/18 12/20/17 SEROquel 300 mg PO HS 05/05/17 04/11/18 12/20/17 Oxycodone HCl [Roxicodone TAB] 15 mg PO 4XD 12/20/17 04/11/18 12/20/17 Insulin NPH Hum/Reg Insulin Hm 40 units SUB-Q QAM 04/11/18 04/11/18 2 Months Ago [Humulin 70-30 Vial] ~02/09/18 Insulin NPH Hum/Reg Insulin Hm 50 units SUB-Q QPM 04/11/18 04/11/18 2 Months Ago [Humulin 70-30 Vial] ~02/09/18 cloNIDine [Catapres] 1 - 2 tab PO BID PRN 04/11/18 04/11/18 Unknown Previous Rx's Medication Instructions Recorded Last Taken Type Apixaban [Eliquis] 10 mg PO Q12HR #7 tablet 05/07/17 Unknown Rx Allergies Allergy/AdvReac Type Severity Reaction Status Date / Time hydromorphone HCl Allergy Hives Verified 09/25/13 13:15 [From Dilaudid] tomato [Tomato] Allergy Hives Verified 12/17/13 20:12 ED Review of Systems ROS: Stated complaint: HEAVY/PAINFUL BREATHING Other details as noted in HPI Comment: All other systems reviewed and negative ED Past Medical Hx - Past Medical History Previous Medical History?: Yes Hx Hypertension: Yes Hx Diabetes: Yes Hx Pulmonary Embolism: Yes Hx GERD: Yes Hx Liver Disease: No Hx Renal Disease: Yes (kidney cancer) Hx Arthritis: Yes Hx Seizures: No Hx Asthma: Yes Hx COPD: No Hx HIV: No Additional medical history: pneumonia, ulcers - Surgical History Past Surgical History?: Yes Additional Surgical History: 2 hip replacements, back surgery, right arm surgery / RIGHT NEPHRECTOMY - Social History Smoking Status: Current Every Day Smoker Substance Use Type: None - Medications Home Medications: Home Medications Medication Instructions Recorded Confirmed Last Taken Type Pregabalin [Lyrica] 300 mg PO BID 12/17/13 04/11/18 12/20/17 History Valacyclovir HCl [Valtrex] 1,000 mg PO DAILY 12/17/13 04/11/18 12/20/17 History Aspirin EC [Aspirin Enteric Coated 81 mg PO QDAY 12/03/15 04/11/18 12/20/17 History TAB] Diltiazem HCl [Cardizem LA] 360 mg PO DAILY 12/03/15 04/11/18 12/20/17 History Famotidine [Pepcid] 40 mg PO QHS 12/03/15 04/11/18 12/20/17 History Mirtazapine [Remeron] 15 mg PO QHS 12/03/15 04/11/18 12/20/17 History Omeprazole [PriLOSEC] 40 mg PO QDAY 12/03/15 04/11/18 12/20/17 History Simvastatin [Zocor TAB] 20 mg PO QHS 12/03/15 04/11/18 12/20/17 History Tizanidine HCl [Zanaflex] 4 mg PO TID 12/03/15 04/11/18 12/20/17 History Losartan/Hydrochlorothiazide 1 tab PO DAILY 12/28/15 04/11/18 12/20/17 History [Losartan-Hctz 100-12.5 mg Tab] Albuterol Sulfate [Proventil HFA] 2 puff INHALATION QDAY 08/19/16 04/11/1812/20 History Budesonide/Formoterol Fumarate 2 puff INHALATION Q12H 08/19/16 04/11/18 History [Symbicort 160-4.5 Mcg Inhaler] Tiotropium [place] [Spiriva] 2 puff INHALATION QDAY 08/19/16 04/11/18 12/20/17 History SEROquel 300 mg PO HS 05/05/17 04/11/18 12/20/17 History Apixaban [Eliquis] 10 mg PO Q12HR #7 tablet 05/07/17 04/11/18 Unknown Rx Oxycodone HCl [Roxicodone TAB] 15 mg PO 4XD 12/20/17 04/11/18 12/20/17 History Insulin NPH Hum/Reg Insulin Hm 40 units SUB-Q QAM 04/11/18 04/11/18 2 Months Ago History [Humulin 70-30 Vial] ~02/09/18 Insulin NPH Hum/Reg Insulin Hm 50 units SUB-Q QPM 04/11/18 04/11/18 2 Months Ago History [Humulin 70-30 Vial] ~02/09/18 cloNIDine [Catapres] 1 - 2 tab PO BID PRN 04/11/18 04/11/18 Unknown History ED Physical Exam - General Limitations: No Limitations General appearance: alert, in no apparent distress - Head Head exam: Present: atraumatic, normocephalic - Eye Eye exam: Present: normal appearance, EOMI - ENT ENT exam: Present: normal exam, mucous membranes moist - Neck Neck exam: Present: normal inspection. Absent: tenderness, meningismus - Respiratory Respiratory exam: Present: normal lung sounds bilaterally, chest wall tenderness. Absent: respiratory distress, wheezes, rales - Cardiovascular Cardiovascular Exam: Present: regular rate, normal rhythm, normal heart sounds, other (left upper chest wall ttp) - GI/Abdominal GI/Abdominal exam: Present: soft. Absent: distended, tenderness, guarding - Extremities Exam Extremities exam: Absent: normal inspection - Back Exam Back exam: Present: normal inspection. Absent: tenderness, CVA tenderness (R), CVA tenderness (L) - Neurological Exam Neurological exam: Present: alert, oriented X3 - Psychiatric Psychiatric exam: Present: normal affect, normal mood - Skin Skin exam: Present: warm, dry, intact ED Course Vital Signs 04/11/18 04/11/18 04/11/18 13:43 14:32 16:38 Temperature 98.0 F 98 F Pulse Rate 86 74 72 Respiratory 20 16 16 Rate Blood Pressure 141/83 Blood Pressure 114/66 118/60 [Left] O2 Sat by Pulse 100 97 100 Oximetry ED Medical Decision Making - Lab Data Result diagrams: 04/11/18 14:19 04/11/18 14:19 Lab Results 04/11/18 04/11/18 04/11/18 Range/Units 14:19 14:19 14:19 WBC 5.8 (4.5-11.0) K/mm3 RBC 3.79 (3.65-5.03) M/mm3 Hgb 11.7 (10.1-14.3) gm/dl Hct 35.3 (30.3-42.9) % MCV 93 (79-97) fl MCH 31 (28-32) pg MCHC 33 (30-34) % RDW 14.3 (13.2-15.2) % Plt Count 309 (140-440) K/mm3 Lymph % (Auto) 35.7 H (13.4-35.0) % Perry % (Auto) 4.7 (0.0-7.3) % Eos % (Auto) 1.6 (0.0-4.3) % Baso % (Auto) 0.7 (0.0-1.8) % Lymph # 2.1 (1.2-5.4) K/mm3 Perry # 0.3 (0.0-0.8) K/mm3 Eos # 0.1 (0.0-0.4) K/mm3 Baso # 0.0 (0.0-0.1) K/mm3 Seg Neutrophils % 57.3 (40.0-70.0) % Seg Neutrophils # 3.3 (1.8-7.7) K/mm3 PT 15.1 H (12.2-14.9) Sec. INR 1.13 (0.87-1.13) APTT 29.8 (24.2-36.6) Sec. Sodium 141 (137-145) mmol/L Potassium 3.4 L (3.6-5.0) mmol/L Chloride 102.1 (98-107) mmol/L Carbon Dioxide 20 L (22-30) mmol/L Anion Gap 22 mmol/L BUN 16 (7-17) mg/dL Creatinine 0.8 (0.7-1.2) mg/dL Estimated GFR > 60 ml/min BUN/Creatinine Ratio 20 % Glucose 124 H (65-100) mg/dL Calcium 9.9 (8.4-10.2) mg/dL Troponin T < 0.010 (0.00-0.029) ng/mL - EKG Data 04/11/18 13:49 HR 76, sinus, normal axis, QTC 401, intervals wnl, TWI in III, flattened TW in II. Unchanged from previous 05/04/2017 04/11/18 17:14 ZAFAR 60, sinus, normal axis, intervals wnl, unchanged T waves from previous - Radiology Data HISTORY: Shortness of breath COMPARISON: No prior studies are available for comparison. FINDINGS: Heart: Normal. Mediastinum/Vessels: Normal. Lungs/Pleural space: No infiltrate, effusion, or pneumothorax.. Bony thorax: There is sclerosis at the superior aspect of bilateral humeral heads, which may be related to osteonecrosis. Other: Right MediPort catheter tip is in the superior vena cava IMPRESSION: No radiographic evidence of acute abnormality. - Medical Decision Making Ms fuentes is a 47 year-old woman who presents with left upper chest pain. pleuritic. more than 6 hours duration. Has been coughing. Hx of PE on eliquis. VSS on room air. Exam with reproducible chest pain, tenderness. Suspect this is MSK pain, PE, ACS, PNA, PTX. CRX clear. Trop negative x 2. EKG non-ischemic x 2. Lytes wnl. Given PO percocet, which she takes at home. reports some improvement. With stable vital signs, on anticoagulation for PE and follow-up appt this week, will dc to home with strict return precautions. suspect msk pain. Trop neg, more than 6 hours of pain, unlikely ACS. Critical care attestation.: If time is entered above; I have spent that time in minutes in the direct care of this critically ill patient, excluding procedure time. ED Disposition Clinical Impression: Chest wall pain Chest pain Qualifiers: Chest pain type: unspecified Qualified Code(s): R07.9 - Chest pain, unspecified Disposition: DC-01 TO HOME OR SELFCARE Is pt being admited?: No Condition: Stable Instructions: Chest Pain (ED), Costochondritis (ED) Additional Instructions: Keep taking your eliquis and call your doctor Friday morning. Follow-up on the as planned Referrals: PRIMARY CARE, [Primary Care Provider] - 3-5 Days
--- NOTE | 2018-04-11 15:30 | XRay Report ---
FINAL REPORT PROCEDURE: XR CHEST ROUTINE 2V TECHNIQUE: PA and lateral chest radiographs were obtained. CPT 12739 HISTORY: Shortness of breath COMPARISON: No prior studies are available for comparison. FINDINGS: Heart: Normal. Mediastinum/Vessels: Normal. Lungs/Pleural space: No infiltrate, effusion, or pneumothorax.. Bony thorax: There is sclerosis at the superior aspect of bilateral humeral heads, which may be related to osteonecrosis. Other: Right MediPort catheter tip is in the superior vena cava IMPRESSION: No radiographic evidence of acute abnormality.
[2018-04-11] MEDS ORDERED: PERCOCET 5/325 PO ONE (16:05)
[2018-04-11 18:55] VITALS: BP 130/58
== END 2018-04-11 18:55 | disposition home or self-care (01) ==
LOC: ED 13:35
DX: R07.89 Other chest pain (principal); R06.02 Shortness of breath; R06.00 Dyspnea, unspecified; R05 Cough; I10 Essential (primary) hypertension; E11.9 Type 2 diabetes mellitus without complications; K21.9 Gastro-esophageal reflux disease without esophagitis; J45.909 Unspecified asthma, uncomplicated; F17.200 Nicotine dependence, unspecified, uncomplicated; Z86.711 Personal history of pulmonary embolism; Z79.4 Long term (current) use of insulin; Z88.5 Allergy status to narcotic agent; Z91.018 Allergy to other foods
CPT/HCPCS: 36415; 71046; 80048; 84484; 85025; 85610; 85730; 93005; 93010

== ENCOUNTER 2018-05-06 09:20 | Outpatient (CLI) | payer MEDICAID ==
--- NOTE | 2018-05-07 13:30 | Mammography Report ---
BILATERAL DIGITAL SCREENING MAMMOGRAM with CAD: 05/06/18 09:20:00 CLINICAL: Routine screening.History of right renal cancer. COMPARISON:None area FINDINGS: The breasts are almost entirely fatty.A right upper inner [id number]. No mass, architectural distortion or suspicious calcifications. Small left axillary lymph nodes have benign morphology. IMPRESSION: No mammographic evidence of malignancy. BI-RADS CATEGORY: 2 - - Benign RECOMMENDATION: Routine mammographic screening in one year. COMMENT: Patient follow-up letters are generated by our [employer] application.
== END 2018-05-06 09:21 | disposition home or self-care (01) ==
LOC: SPVWC 09:20
PROVIDERS: ATTEND Internal Medicine Hematology & Oncology
DX: Z12.31 Encounter for screening mammogram for malignant neoplasm of breast (principal); I10 Essential (primary) hypertension; E78.5 Hyperlipidemia, unspecified; E66.9 Obesity, unspecified; E11.9 Type 2 diabetes mellitus without complications; J45.909 Unspecified asthma, uncomplicated; K21.9 Gastro-esophageal reflux disease without esophagitis; M19.90 Unspecified osteoarthritis, unspecified site; Z91.018 Allergy to other foods; Z88.6 Allergy status to analgesic agent; Z87.891 Personal history of nicotine dependence; Z90.5 Acquired absence of kidney
CPT/HCPCS: 77067

== ENCOUNTER 2018-06-30 12:16 | Emergency (ER) | payer MEDICAID ==
[2018-06-30] MEDS ORDERED: ZOFRAN IM ONE (12:50)
[2018-06-30] MEDS ORDERED: MORPHINE IM ONE (12:50)
--- NOTE | 2018-06-30 12:55 | Emergency Department Report ---
ED Fall HPI - General Chief Complaint: Fall Stated Complaint: LEFT KNEE/HIP PAIN Time Seen by Provider: 06/30/18 12:46 Source: patient, EMS Mode of arrival: Stretcher - History of Present Illness Initial Comments: Patient is 48 years old female with history of left hip replacement. Patient presented to the ER for evaluation after a fall that happened just prior to coming to the ER. Patient stated that she tripped and slipped and fell landing on her left side. Patient denied any head injury neck and at bedtime and U or abdominal injury. She is complaining of left hip pain, left knee pain and lower back pain. Patient denied any focal weakness, numbness of tingling sensation. No bowel or bladder incontinence. MD Complaint: fall -: Sudden, This morning Fall From: standing When Fall Occurred: just prior to arrival Fall Witnessed: yes, by bystander Place Fall Occurred: work Loss of Consciousness: none Prolonged Down Time?: no Symptoms Prior to Fall: none Location: back, pelvis Location - Extremities: Left: Knee Severity: moderate Severity scale (0 -10): 5 Context: tripped/slipped Associated Symptoms: denies - Related Data Home Medications Medication Instructions Recorded Confirmed Last Taken Pregabalin [Lyrica] 300 mg PO BID 12/17/13 04/11/18 12/20/17 Valacyclovir HCl [Valtrex] 1,000 mg PO DAILY 12/17/13 04/11/18 12/20/17 Aspirin EC [Aspirin Enteric Coated 81 mg PO QDAY 12/03/15 04/11/18 12/20/17 TAB] Diltiazem HCl [Cardizem LA] 360 mg PO DAILY 12/03/15 04/11/18 12/20/17 Famotidine [Pepcid] 40 mg PO QHS 12/03/15 04/11/18 12/20/17 Mirtazapine [Remeron] 15 mg PO QHS 12/03/15 04/11/18 12/20/17 Omeprazole [PriLOSEC] 40 mg PO QDAY 12/03/15 04/11/18 12/20/17 Simvastatin [Zocor TAB] 20 mg PO QHS 12/03/15 04/11/18 12/20/17 Tizanidine HCl [Zanaflex] 4 mg PO TID 12/03/15 04/11/18 12/20/17 Losartan/Hydrochlorothiazide 1 tab PO DAILY 12/28/15 04/11/18 12/20/17 [Losartan-Hctz 100-12.5 mg Tab] Albuterol Sulfate [Proventil HFA] 2 puff INHALATION QDAY 08/19/16 04/11/1812/20 Budesonide/Formoterol Fumarate 2 puff INHALATION Q12H 08/19/16 04/11/18 12/20/17 [Symbicort 160-4.5 Mcg Inhaler] Tiotropium Mesa [Spiriva] 2 puff INHALATION QDAY 08/19/16 04/11/18 12/20/17 SEROquel 300 mg PO HS 05/05/17 04/11/18 12/20/17 Oxycodone HCl [Roxicodone TAB] 15 mg PO 4XD 12/20/17 04/11/18 12/20/17 Insulin NPH Hum/Reg Insulin Hm 40 units SUB-Q QAM 04/11/18 04/11/18 2 Months Ago [Humulin 70-30 Vial] ~02/09/18 Insulin NPH Hum/Reg Insulin Hm 50 units SUB-Q QPM 04/11/18 04/11/18 2 Months Ago [Humulin 70-30 Vial] ~02/09/18 cloNIDine [Catapres] 1 - 2 tab PO BID PRN 04/11/18 04/11/18 Unknown Previous Rx's Medication Instructions Recorded Last Taken Type Apixaban [Eliquis] 10 mg PO Q12HR #7 tablet 05/07/17 Unknown Rx Allergies Allergy/AdvReac Type Severity Reaction Status Date / Time hydromorphone HCl Allergy Hives Verified 09/25/13 13:15 [From Dilaudid] tomato [Tomato] Allergy Hives Verified 12/17/13 20:12 ED Review of Systems ROS: Stated complaint: LEFT KNEE/HIP PAIN Other details as noted in HPI Comment: All other systems reviewed and negative Constitutional: denies: chills, fever ENT: denies: ear pain, throat pain Respiratory: denies: shortness of breath, SOB with exertion Cardiovascular: denies: chest pain, palpitations, dyspnea on exertion Gastrointestinal: denies: abdominal pain, nausea, vomiting, diarrhea, constipation, hematemesis, melena, hematochezia Genitourinary: denies: urgency, dysuria, frequency, hematuria Musculoskeletal: back pain. denies: joint swelling, arthralgia Neurological: denies: headache, weakness, numbness, paresthesias, confusion, abnormal gait ED Past Medical Hx - Past Medical History Previous Medical History?: Yes Hx Hypertension: Yes Hx Diabetes: Yes Hx Pulmonary Embolism: Yes Hx GERD: Yes Hx Liver Disease: No Hx Renal Disease: Yes (kidney cancer) Hx Arthritis: Yes Hx Seizures: No Hx Asthma: Yes Hx COPD: No Hx HIV: No Additional medical history: pneumonia, ulcers - Surgical History Past Surgical History?: Yes Additional Surgical History: 2 hip replacements, back surgery, right arm surgery / RIGHT NEPHRECTOMY - Social History Smoking Status: Current Every Day Smoker Substance Use Type: None - Medications Home Medications: Home Medications Medication Instructions Recorded Confirmed Last Taken Type Pregabalin [Lyrica] 300 mg PO BID 12/17/13 04/11/18 12/20/17 History Valacyclovir HCl [Valtrex] 1,000 mg PO DAILY 12/17/13 04/11/18 12/20/17 History Aspirin EC [Aspirin Enteric Coated 81 mg PO QDAY 12/03/15 04/11/18 12/20/17 History TAB] Diltiazem HCl [Cardizem LA] 360 mg PO DAILY 12/03/15 04/11/18 12/20/17 History Famotidine [Pepcid] 40 mg PO QHS 12/03/15 04/11/18 12/20/17 History Mirtazapine [Remeron] 15 mg PO QHS 12/03/15 04/11/18 12/20/17 History Omeprazole [PriLOSEC] 40 mg PO QDAY 12/03/15 04/11/18 12/20/17 History Simvastatin [Zocor TAB] 20 mg PO QHS 12/03/15 04/11/18 12/20/17 History Tizanidine HCl [Zanaflex] 4 mg PO TID 12/03/15 04/11/18 12/20/17 History Losartan/Hydrochlorothiazide 1 tab PO DAILY 12/28/15 04/11/18 12/20/17 History [Losartan-Hctz 100-12.5 mg Tab] Albuterol Sulfate [Proventil HFA] 2 puff INHALATION QDAY 08/19/16 04/11/1812/20 History Budesonide/Formoterol Fumarate 2 puff INHALATION Q12H 08/19/16 04/11/18 History [Symbicort 160-4.5 Mcg Inhaler] Tiotropium Mesa [Spiriva] 2 puff INHALATION QDAY 08/19/16 04/11/18 12/20/17 History SEROquel 300 mg PO HS 05/05/17 04/11/18 12/20/17 History Apixaban [Eliquis] 10 mg PO Q12HR #7 tablet 05/07/17 04/11/18 Unknown Rx Oxycodone HCl [Roxicodone TAB] 15 mg PO 4XD 12/20/17 04/11/18 12/20/17 History Insulin NPH Hum/Reg Insulin Hm 40 units SUB-Q QAM 04/11/18 04/11/18 2 Months Ago History [Humulin 70-30 Vial] ~02/09/18 Insulin NPH Hum/Reg Insulin Hm 50 units SUB-Q QPM 04/11/18 04/11/18 2 Months Ago History [Humulin 70-30 Vial] ~02/09/18 cloNIDine [Catapres] 1 - 2 tab PO BID PRN 04/11/18 04/11/18 Unknown History ED Physical Exam - General Limitations: No Limitations, Physical Limitation General appearance: alert, in no apparent distress - Head Head exam: Present: atraumatic, normocephalic, normal inspection - Eye Eye exam: Present: normal appearance, PERRL - ENT ENT exam: Present: normal exam, normal orophraynx, mucous membranes moist - Neck Neck exam: Present: normal inspection, full ROM. Absent: tenderness, meningismus, lymphadenopathy, thyromegaly - Respiratory Respiratory exam: Present: normal lung sounds bilaterally. Absent: respiratory distress, wheezes, rales, rhonchi, stridor, chest wall tenderness, accessory muscle use, decreased breath sounds, prolonged expiratory - Cardiovascular Cardiovascular Exam: Present: regular rate, normal rhythm, normal heart sounds - GI/Abdominal GI/Abdominal exam: Present: soft, normal bowel sounds. Absent: distended, tenderness, guarding, rebound, rigid, diminished bowel sounds, hyperactive bowel sounds, hypoactive bowel sounds, organomegaly, mass, bruit, pulsatile mass , hernia - Extremities Exam Extremities exam: Present: normal inspection, full ROM, normal capillary refill. Absent: pedal edema, calf tenderness - Expanded Lower Extremity Exam Left Hip exam: Present: tenderness. Absent: deformity, crepidus, shortening, pelvic stability Knee exam: Present: tenderness. Absent: swelling, abrasion, deformity, dislocation - Back Exam Back exam: Present: normal inspection, full ROM. Absent: tenderness, CVA tenderness (R), CVA tenderness (L), muscle spasm, paraspinal tenderness, vertebral tenderness, rash noted - Neurological Exam Neurological exam: Present: alert, oriented X3, CN II-XII intact, normal gait, reflexes normal - Skin Skin exam: Present: warm, intact, normal color ED Course Vital Signs 06/30/18 06/30/18 06/30/18 12:25 13:05 14:13 Temperature 97.8 F Pulse Rate 75 Respiratory 20 18 20 Rate Blood Pressure 126/86 Blood Pressure [Left] O2 Sat by Pulse 100 Oximetry 06/30/18 14:24 Temperature 98.0 F Pulse Rate 66 Respiratory 18 Rate Blood Pressure Blood Pressure 146/60 [Left] O2 Sat by Pulse 100 Oximetry ED Medical Decision Making - Radiology Data Radiology results: report reviewed Referring Physician: EREN DO Patient Name: MICHELLE VASQUEZ Date of : 1970 Sex: Female Report Date: 2018-06-30 Report Status: Finalized Findings [facility] [address] [place] [address] XRay Report Signed Patient: MICHELLE VASQUEZ MR#: [id number] : 1970 Acct:[id number] Age/Sex: 48 / F ADM Date: 06/30/18 Loc: ED Attending Dr: Ordering Physician: EREN DO Date of Service: 06/30/18 Procedure(s): XR spine lumbosacral 2-3V Accession Number(s): [id number] cc: EREN DO Fluoro Time In Minutes: LUMBOSACRAL SPINE, 3 VIEWS: History: Back injury, pain Findings: There has been previous posterior fusion of L5-S1. There is normal height and alignment of the lumbar vertebral bodies otherwise. There is moderate diffuse facet arthropathy. The disc spaces from L1-L4 over the normal limits. No fracture, malalignment or bone lesion. Impression: Surgical changes as described. Mild degenerative changes. No acute process is noted. Transcribed By: TTR Dictated By: CATARINA HILLIARD JR, MD Electronically Authenticated By: CATARINA HILLIARD JR, MD Signed Date/Time: 06/30/181401 DD/ 00 TD/TT: 06/30/181401 Referring Physician: EREN DO Patient Name: MICHELLE VASQUEZ Date of : 1970 Sex: Female Report Date: 2018-06-30 Report Status: [place] [address] XRay Report Signed Patient: MICHELLE VASQUEZ MR#: [id number] : 1970 Acct:[id number] Age/Sex: 48 / F ADM Date: 06/30/18 Loc: ED Attending Dr: Ordering Physician: EREN DO Date of Service: 06/30/18 Procedure(s): XR knee 3V LT Accession Number(s): [id number] cc: EREN DO Fluoro Time In Minutes: LEFT KNEE, 3 views: History: Left knee injury, pain The bony architecture is intact without evidence of fracture or dislocation. No significant soft tissue abnormality is seen. IMPRESSION: No evidence for acute injury. Transcribed By: TTR Dictated By: CATARINA HILLIARD JR, MD Electronically Authenticated By: CATARINA HILLIARD JR, MD Signed Date/Time: 06/30/181400 DD/ 00 TD/TT: 06/30/181400 - Medical Decision Making Patient is 48 years old female with history of left hip replacement. Patient presented to the ER for evaluation after a fall that happened just prior to coming to the ER. Patient stated that she tripped and slipped and fell landing on her left side. Patient denied any head injury neck and at bedtime and U or abdominal injury. She is complaining of left hip pain, left knee pain and lower back pain. Patient denied any focal weakness, numbness of tingling sensation. No bowel or bladder incontinence. Patient x-ray of the lumbosacral area, left hip and left knee came negative for acute finding. Patient received morphine and Toradol for pain. Patient stated that she is feeling better. I advised to follow-up with her primary care physician in the next 2-3 days. I also advised to return to the ER if her symptoms are not improving. Critical care attestation.: If time is entered above; I have spent that time in minutes in the direct care of this critically ill patient, excluding procedure time. ED Disposition Clinical Impression: Fall, Hip pain, left, Back pain, Knee pain, left Disposition: DC-01 TO HOME OR SELFCARE Is pt being admited?: No Condition: Stable Instructions: Contusion in Adults (ED), Knee Pain (ED), Fall Prevention (ED) Referrals: PRIMARY CARE, [Primary Care Provider] - 3-5 Days Forms: Work/School Release Form(ED)
[2018-06-30] MEDS ORDERED: TORADOL IM ONE (13:56)
--- NOTE | 2018-06-30 14:01 | XRay Report ---
LEFT HIP, 2 views: History: Left hip injury, pain. Left hip prosthesis appears in good position. No evidence for fracture or dislocation. The visualized pelvis is intact. IMPRESSION: No acute process identified. Stable appearance of the left hip prosthesis.
--- NOTE | 2018-06-30 14:02 | XRay Report ---
LEFT KNEE, 3 views: History: Left knee injury, pain The bony architecture is intact without evidence of fracture or dislocation. No significant soft tissue abnormality is seen. IMPRESSION: No evidence for acute injury.
--- NOTE | 2018-06-30 14:03 | XRay Report ---
LUMBOSACRAL SPINE, 3 VIEWS: History: Back injury, pain Findings: There has been previous posterior fusion of L5-S1. There is normal height and alignment of the lumbar vertebral bodies otherwise. There is moderate diffuse facet arthropathy. The disc spaces from L1-L4 over the normal limits. No fracture, malalignment or bone lesion. Impression: Surgical changes as described. Mild degenerative changes. No acute process is noted.
[2018-06-30 14:28] VITALS: BP 146/60
== END 2018-06-30 14:53 | disposition home or self-care (01) ==
LOC: ED 12:16
DX: M25.552 Pain in left hip (principal); M25.562 Pain in left knee; M54.5 Low back pain; I10 Essential (primary) hypertension; E11.9 Type 2 diabetes mellitus without complications; K21.9 Gastro-esophageal reflux disease without esophagitis; M19.90 Unspecified osteoarthritis, unspecified site; J45.909 Unspecified asthma, uncomplicated; F17.200 Nicotine dependence, unspecified, uncomplicated; Z90.5 Acquired absence of kidney; Z79.82 Long term (current) use of aspirin; Z79.4 Long term (current) use of insulin; Z88.8 Allergy status to other drugs, medicaments and biological substances; W01.0XXA Fall on same level from slipping, tripping and stumbling without subsequent striking against object, initial encounter; Y93.89 Activity, other specified; Y92.89 Other specified places as the place of occurrence of the external cause; Y99.8 Other external cause status
CPT/HCPCS: 72100; 73502; 73562; 96372; 99284; J1885; J2270; J2405

== ENCOUNTER 2018-11-13 18:20 | Emergency (ER) | payer MEDICAID ==
[2018-11-13] MEDS ORDERED: NACL 0.9% 1000 ML 1,000 ML IV ONE (20:32)
--- NOTE | 2018-11-13 21:00 | Emergency Department Report ---
- General Chief Complaint: Weakness Stated Complaint: FLU LIKE SYMPTOMS Time Seen by Provider: 11/13/18 20:08 Source: patient Mode of arrival: Ambulatory Limitations: No Limitations - History of Present Illness Initial Comments: 48-year-old female presents to ED with complaint of URI symptoms 5 days. Patient reports cough that was initially productive of sputum, however states it is currently a dry cough. Patient reports rib pain with cough. Also reports nasal congestion, headache, dizziness with turning her head or leaning forward. Patient denies fever. MD Complaint: cough, nasal congestion, sinus pain -: days(s) (5) Severity: moderate Quality: aching Consistency: constant Improves With: nothing Worsens With: nothing Associated Symptoms: myalgias, headache, nasal congestion. denies: fever, chest pain, shortness of breath, abdominal pain, vomiting, diarrhea - Related Data Home Medications Medication Instructions Recorded Confirmed Last Taken Pregabalin [Lyrica] 300 mg PO BID 12/17/13 11/13/18 12/20/17 Aspirin EC [Aspirin Enteric Coated 81 mg PO QDAY 12/03/15 11/13/18 12/20/17 TAB] Diltiazem HCl [Cardizem LA] 360 mg PO DAILY 12/03/15 11/13/18 12/20/17 Famotidine [Pepcid] 40 mg PO QHS 12/03/15 11/13/18 12/20/17 Mirtazapine [Remeron] 15 mg PO QHS 12/03/15 11/13/18 12/20/17 Omeprazole [PriLOSEC] 40 mg PO QDAY 12/03/15 11/13/18 12/20/17 Simvastatin (Nf) [Zocor TAB] 20 mg PO QHS 12/03/15 11/13/18 12/20/17 Tizanidine HCl [Zanaflex] 4 mg PO TID 12/03/15 11/13/18 12/20/17 Losartan/Hydrochlorothiazide 1 tab PO DAILY 12/28/15 11/13/18 12/20/17 [Losartan-Hctz 100-12.5 mg Tab] Albuterol Sulfate [Proventil HFA] 2 puff INHALATION QDAY 08/19/16 11/13/18 12/20/17 Budesonide/Formoterol Fumarate 2 puff INHALATION Q12H 08/19/16 11/13/18 12/20/17 [Symbicort 160-4.5 Mcg Inhaler] SEROquel 300 mg PO HS 05/05/17 11/13/18 12/20/17 cloNIDine [Catapres] 1 - 2 tab PO BID PRN 04/11/18 11/13/18 Unknown Previous Rx's Medication Instructions Recorded Last Taken Type Apixaban [Eliquis] 10 mg PO Q12HR #7 tablet 05/07/17 Unknown Rx Acetaminophen/Codeine [Tylenol 1 tab PO Q6H PRN #14 tab 06/30/18 Unknown Rx /Codeine # 3 tab] Amoxicillin/K Clav Tab [Augmentin 1 tab PO Q12HR 10 Days #20 tab 11/13/18 Unknown Rx 875 mg] Benzonatate [Tessalon Perles] 100 mg PO Q8HR PRN #20 capsule 11/13/18 Unknown Rx Fluticasone [Flonase] 1 spray NS QDAY #1 bottle 11/13/18 Unknown Rx Naproxen [Naprosyn] 500 mg PO BID #20 tablet 11/13/18 Unknown Rx Allergies Allergy/AdvReac Type Severity Reaction Status Date / Time hydromorphone HCl Allergy Hives Verified 09/25/13 13:15 [From Dilaudid] tomato [Tomato] Allergy Hives Verified 12/17/13 20:12 ED Review of Systems ROS: Stated complaint: FLU LIKE SYMPTOMS Other details as noted in HPI Comment: All other systems reviewed and negative Constitutional: denies: chills, fever ENT: congestion Respiratory: cough. denies: shortness of breath Cardiovascular: denies: chest pain Gastrointestinal: denies: abdominal pain, nausea, vomiting, diarrhea Neurological: headache ED Past Medical Hx - Past Medical History Previous Medical History?: Yes Hx Hypertension: Yes Hx Diabetes: Yes Hx Pulmonary Embolism: Yes Hx GERD: Yes Hx Liver Disease: No Hx Renal Disease: Yes (kidney cancer) Hx Arthritis: Yes Hx Seizures: No Hx Asthma: Yes Hx COPD: No Hx HIV: No Additional medical history: pneumonia, ulcers - Surgical History Past Surgical History?: Yes Additional Surgical History: 2 hip replacements, back surgery, right arm surgery / RIGHT NEPHRECTOMY - Social History Smoking Status: Current Some Day Smoker Substance Use Type: None - Medications Home Medications: Home Medications Medication Instructions Recorded Confirmed Last Taken Type Pregabalin [Lyrica] 300 mg PO BID 12/17/13 11/13/18 12/20/17 History Aspirin EC [Aspirin Enteric Coated 81 mg PO QDAY 12/03/15 11/13/18 12/20/17 History TAB] Diltiazem HCl [Cardizem LA] 360 mg PO DAILY 12/03/15 11/13/18 12/20/17 History Famotidine [Pepcid] 40 mg PO QHS 12/03/15 11/13/18 12/20/17 History Mirtazapine [Remeron] 15 mg PO QHS 12/03/15 11/13/18 12/20/17 History Omeprazole [PriLOSEC] 40 mg PO QDAY 12/03/15 11/13/18 12/20/17 History Simvastatin (Nf) [Zocor TAB] 20 mg PO QHS 12/03/15 11/13/18 12/20/17 History Tizanidine HCl [Zanaflex] 4 mg PO TID 12/03/15 11/13/18 12/20/17 History Losartan/Hydrochlorothiazide 1 tab PO DAILY 12/28/15 11/13/18 12/20/17 History [Losartan-Hctz 100-12.5 mg Tab] Albuterol Sulfate [Proventil HFA] 2 puff INHALATION QDAY 08/19/16 11/13/18 12/20/17 History Budesonide/Formoterol Fumarate 2 puff INHALATION Q12H 08/19/16 11/13/18 12/20/17 History [Symbicort 160-4.5 Mcg Inhaler] SEROquel 300 mg PO HS 05/05/17 11/13/18 12/20/17 History Apixaban [Eliquis] 10 mg PO Q12HR #7 tablet 05/07/17 11/13/18 Unknown Rx cloNIDine [Catapres] 1 - 2 tab PO BID PRN 04/11/18 11/13/18 Unknown History Acetaminophen/Codeine [Tylenol 1 tab PO Q6H PRN #14 tab 06/30/18 11/13/18 Unknown Rx /Codeine # 3 tab] Amoxicillin/K Clav Tab [Augmentin 1 tab PO Q12HR 10 Days #20 tab 11/13/18 Unknown Rx 875 mg] Benzonatate [Tessalon Perles] 100 mg PO Q8HR PRN #20 capsule 11/13/18 Unknown Rx Fluticasone [Flonase] 1 spray NS QDAY #1 bottle 11/13/18 Unknown Rx Naproxen [Naprosyn] 500 mg PO BID #20 tablet 11/13/18 Unknown Rx ED Physical Exam - General Limitations: No Limitations General appearance: alert, in no apparent distress - Head Head exam: Present: atraumatic, normocephalic - Eye Eye exam: Present: normal appearance - ENT ENT exam: Present: mucous membranes moist, other (sinus tenderness present) - Neck Neck exam: Present: normal inspection, full ROM. Absent: meningismus - Respiratory Respiratory exam: Present: normal lung sounds bilaterally, chest wall tenderness. Absent: respiratory distress - Cardiovascular Cardiovascular Exam: Present: regular rate, normal rhythm - GI/Abdominal GI/Abdominal exam: Present: soft. Absent: distended, tenderness - Extremities Exam Extremities exam: Present: normal inspection - Neurological Exam Neurological exam: Present: alert, oriented X3 - Psychiatric Psychiatric exam: Present: normal affect, normal mood - Skin Skin exam: Present: warm, dry, intact, normal color ED Course Vital Signs 11/13/18 11/13/18 19:35 19:53 Temperature 97.7 F 98.1 F Pulse Rate 91 H 74 Respiratory 18 13 Rate Blood Pressure 147/83 161/91 Blood Pressure 161/91 [Left] O2 Sat by Pulse 100 Oximetry ED Medical Decision Making - Lab Data Result diagrams: 11/13/18 20:48 11/13/18 20:48 - Radiology Data Radiology results: report reviewed, image reviewed - Medical Decision Making 48-year-old female with URI symptoms and likely sinus infection. Chest x-ray negative for pneumonia. Patient is afebrile. Labs are unremarkable. Patient given IV fluids here in ED. States she is feeling much better at this time. Will discharge home with prescription for antibiotics for sinusitis and Tessalon, Naprosyn, Flonase. Patient is given. Outpatient follow-up advised. - Differential Diagnosis URI, sinusitis, pneumonia Critical care attestation.: If time is entered above; I have spent that time in minutes in the direct care of this critically ill patient, excluding procedure time. ED Disposition Clinical Impression: Upper respiratory infection, Sinusitis Disposition: DC-01 TO HOME OR SELFCARE Is pt being admited?: No Condition: Stable Instructions: Sinusitis (ED), Upper Respiratory Infection (ED) Prescriptions: Amoxicillin/K Clav Tab [Augmentin 875 mg] 1 tab PO Q12HR 10 Days #20 tab Benzonatate [Tessalon Perles] 100 mg PO Q8HR PRN #20 capsule PRN Reason: Cough Fluticasone [Flonase] 1 spray NS QDAY #1 bottle Naproxen [Naprosyn] 500 mg PO BID #20 tablet Referrals: [facility] [Provider Group] - 3-5 Days PRIMARY CARE, [Referring] - 3-5 Days Time of Disposition: 21:55
[2018-11-13 21:08] LABS: Bacteria,Urine 1+ /HPF (Negative); Bilirubin,Urine NEG (Negative); Blood,Urine NEG (Negative); Color,Urine Yellow (Yellow); Mucus,Urine FEW /HPF; Protein,Urine <15 mg/dL mg/dL (Negative); Urobilinogen,Urine < 2.0 mg/dL (<2.0)
[2018-11-13 21:17] LABS: Basophils # (Auto) 0.1 K/mm3 (0.0-0.1); Basophils % (Auto) 1.5 % (0.0-1.8); Eosinophils # (Auto) 0.2 K/mm3 (0.0-0.4); Eosinophils % (Auto) 2.7 % (0.0-4.3); Hemoglobin 11.8 gm/dl (10.1-14.3); Lymphocytes # (Auto) 1.9 K/mm3 (1.2-5.4); Lymphocytes % (Auto) 29.1 % (13.4-35.0); Mean Corpuscular HGB Conc 33 % (30-34); Mean Corpuscular Volume 91 fl (79-97); Monocytes # (Auto) 0.4 K/mm3 (0.0-0.8); Monocytes % (Auto) 5.6 % (0.0-7.3); Platelet Count 312 K/mm3 (140-440); Red Blood Count 3.94 M/mm3 (3.65-5.03); Red Cell Distribution Width 14.2 % (13.2-15.2)
--- NOTE | 2018-11-13 21:32 | XRay Report ---
FINAL REPORT PROCEDURE: Portable AP upright chest x-ray TECHNIQUE: Chest radiograph anteroposterior view. CPT 95556 HISTORY: cough COMPARISON: Prior chest x-ray 04/11/2018 FINDINGS: [id number] catheter remains in place entering on the right. Lungs are clear. No infiltrates masses or effusions are seen. Heart size and pulmonary vasculature appear normal. No acute bony abnormaliti es are seen. Abnormal sclerotic density seen in the superior aspect of the right humeral head. This i s unchanged. This may represent avascular necrosis. IMPRESSION: No evidence of acute cardiac or pulmonary process. [id number] catheter in place. Right humeral head as described
[2018-11-13 21:47] LABS: BUN/Creatinine Ratio 24; Blood Urea Nitrogen 24 mg/dL (7-17); Calcium 9.1 mg/dL (8.4-10.2); Hemolysis Index 7
[2018-11-13 22:40] VITALS: BP 150/66
== END 2018-11-13 22:41 | disposition home or self-care (01) ==
LOC: ED 18:20
DX: J06.9 Acute upper respiratory infection, unspecified (principal); J01.90 Acute sinusitis, unspecified; I10 Essential (primary) hypertension; E11.9 Type 2 diabetes mellitus without complications; K21.9 Gastro-esophageal reflux disease without esophagitis; M19.90 Unspecified osteoarthritis, unspecified site; J45.909 Unspecified asthma, uncomplicated; F17.200 Nicotine dependence, unspecified, uncomplicated; Z91.018 Allergy to other foods; Z88.1 Allergy status to other antibiotic agents; Z85.528 Personal history of other malignant neoplasm of kidney
CPT/HCPCS: 36415; 71045; 80048; 81001; 85025; 93005; 93010; 99284; J7030

== ENCOUNTER 2019-04-02 16:30 | Inpatient (IN) | payer MEDICAID ==
--- NOTE | 2019-04-02 16:45 | Event Note ---
ED Screening Note Date of service: 04/02/19 Time: 16:41 ED Screening Note: This is a 48 y.o. F. that presents to the ER with elevated blood pressure from PCP Dr. Aguero. PMH: asthma, COPD, DM, GERD, HTN, pulmonary embolism, and kidney cancer She was given clonidine 0.2 mg po at doctor office. Reports headache and numbness and tingling to LUE. This initial assessment/diagnostic orders/clinical plan/treatment(s) is/are subject to change based on patients health status, clinical progression and re- assessment by fellow clinical providers in the ED. Further treatment and workup at subsequent clinical providers discretion. Patient/guardian urged not to elope from the ED as their condition may be serious if not clinically assessed and managed. Initial orders include: labs and ekg
[2019-04-02 17:27] LABS: Alanine Aminotransferase 21 units/L (7-56); Albumin 4.3 g/dL (3.9-5); BUN/Creatinine Ratio 11; Blood Urea Nitrogen 10 mg/dL (7-17); Calcium 9.5 mg/dL (8.4-10.2); Hemolysis Index 6
[2019-04-02 17:29] LABS: Basophils # (Auto) 0.1 K/mm3 (0.0-0.1); Basophils % (Auto) 0.7 % (0.0-1.8); Eosinophils # (Auto) 0.2 K/mm3 (0.0-0.4); Eosinophils % (Auto) 2.3 % (0.0-4.3); Hematocrit 35.6 % (30.3-42.9); Hemoglobin 11.8 gm/dl (10.1-14.3); Lymphocytes # (Auto) 2.9 K/mm3 (1.2-5.4); Mean Corpuscular HGB Conc 33 % (30-34); Mean Corpuscular Volume 90 fl (79-97); Monocytes # (Auto) 0.5 K/mm3 (0.0-0.8); Platelet Count 331 K/mm3 (140-440); Red Blood Count 3.94 M/mm3 (3.65-5.03); Red Cell Distribution Width 14.6 % (13.2-15.2)
[2019-04-02] MEDS ORDERED: XYLOCAINE TOPICAL 4% TP ONE (20:22)
[2019-04-02] MEDS ORDERED: REGLAN IV ONE (20:23)
--- NOTE | 2019-04-02 20:24 | Emergency Department Report ---
ED General Adult HPI - General Chief complaint: High BP Stated complaint: HIGH BP Time Seen by Provider: 04/02/19 16:41 Source: patient, RN notes reviewed, old records reviewed Mode of arrival: Ambulatory Limitations: No Limitations - History of Present Illness Initial comments: Primary care Dr.: Dr. Sharp Past medical history: Hypertension, GERD, gastritis, history of kidney cancer, history of nephrectomy, history of pulmonary embolism, currently on systemic anticoagulation, eliquis and aspirin This is a 48-year-old female. The patient is not known to this provider previously. The patient is sent to the emergency room by her primary care doct or. The patient reportedly had hypertension in her doctor's office, and was given clonidine. We do not know how high her blood pressure is. The patient is sent to the emergency room for evaluation of headache, intermittent left arm numbness, and hypertension. The headache is present for 1 month. The headache is intermittent. The headache does not have exacerbating or relieving factors. The headache is presents basically every day. The headache varies in site, sometimes it is right-sided periorbital and retro-orbital, left-sided periorbital and retro-orbital, occasionally frontal, and occasionally temporal. The patient experiences the headache, she endorses that she has left arm numb ness. She endorses that she does not have left arm numbness without the headache. She denies bladder or bowel retention or incontinence. She denies saddle anesthesia. She denies extremity weakness. She denies midline back pain and neck pain. On review of systems, she endorses dysuria, and left paralumbar back pain. This is present for one week. She states that she saw her "cancer doctor" about this, and that a urinalysis was sent, and pending cultures. -: Gradual, week(s) Location: head, back, left, upper extremity, lower extremity Quality: other Consistency: intermittent Improves with: none Worsens with: none - Related Data Home Medications Medication Instructions Recorded Confirmed Last Taken Pregabalin [Lyrica] 300 mg PO BID 12/17/13 11/13/18 12/20/17 Aspirin EC 81 mg PO QDAY 12/03/15 11/13/18 12/20/17 Diltiazem HCl [Cardizem LA] 360 mg PO DAILY 12/03/15 11/13/18 12/20/17 Famotidine [Pepcid] 40 mg PO QHS 12/03/15 11/13/18 12/20/17 Mirtazapine [Remeron] 15 mg PO QHS 12/03/15 11/13/18 12/20/17 Omeprazole [PriLOSEC] 40 mg PO QDAY 12/03/15 11/13/18 12/20/17 Simvastatin (Nf) [Zocor TAB] 20 mg PO QHS 12/03/15 11/13/18 12/20/17 Tizanidine HCl [Zanaflex] 4 mg PO TID 12/03/15 11/13/18 12/20/17 Losartan/Hydrochlorothiazide 1 tab PO DAILY 12/28/15 11/13/18 12/20/17 [Losartan-Hctz 100-12.5 mg Tab] Albuterol Sulfate [Proventil HFA] 2 puff INHALATION QDAY 08/19/16 11/13/18 12/20/17 Budesonide/Formoterol Fumarate 2 puff INHALATION Q12H 08/19/16 11/13/18 12/20/17 [Symbicort 160-4.5 Mcg Inhaler] SEROquel 300 mg PO HS 05/05/17 11/13/18 12/20/17 cloNIDine [Catapres] 1 - 2 tab PO BID PRN 04/11/18 11/13/18 Unknown Previous Rx's Medication Instructions Recorded Last Taken Type Apixaban [Eliquis] 10 mg PO Q12HR #7 tablet 05/07/17 Unknown Rx Acetaminophen/Codeine [Tylenol 1 tab PO Q6H PRN #14 tab 06/30/18 Unknown Rx /Codeine # 3 tab] Amoxicillin/K Clav Tab [Augmentin 1 tab PO Q12HR 10 Days #20 tab 11/13/18 Unk nown Rx 875 mg] Benzonatate [Tessalon Perles] 100 mg PO Q8HR PRN #20 capsule 11/13/18 Unknown Rx Fluticasone [Flonase] 1 spray NS QDAY #1 bottle 11/13/18 Unknown Rx Naproxen [Naprosyn] 500 mg PO BID #20 tablet 11/13/18 Unknown Rx Allergies Allergy/AdvReac Type Severity Reaction Status Date / Time hydromorphone HCl Allergy Hives Verified 04/02/19 16:32 [From Dilaudid] tomato [Tomato] Allergy Hives Verified 04/02/19 16:32 ED Review of Systems ROS: Stated complaint: HIGH BP Other details as noted in HPI Constitutional: denies: fever Eyes: denies: vision change ENT: denies: epistaxis Respiratory: denies: cough Cardiovascular: denies: chest pain Gastrointestinal: denies: abdominal pain Genitourinary: dysuria Musculoskeletal: back pain Neurological: weakness, paresthesias ED Past Medical Hx - Past Medical History Hx Hypertension: Yes Hx Diabetes: Yes Hx Pulmonary Embolism: Yes Hx GERD: Yes Hx Liver Disease: No Hx Renal Disease: Yes (kidney cancer) Hx Arthritis: Yes Hx Seizures: No Hx Asthma: Yes Hx COPD: No Hx HIV: No Additional medical history: pneumonia, ulcers - Surgical History Additional Surgical History: 2 hip replacements, back surgery, right arm surgery / RIGHT NEPHRECTOMY - Social History Smoking Status: Current Every Day Smoker - Medications Home Medications: Home Medications Medication Instructions Recorded Confirmed Last Taken Type Pregabalin [Lyrica] 300 mg PO BID 12/17/13 11/13/18 12/20/17 History Aspirin EC 81 mg PO QDAY 12/03/15 11/13/18 12/20/17 History Diltiazem HCl [Cardizem LA] 360 mg PO DAILY 12/03/15 11/13/18 12/20/17 History Famotidine [Pepcid] 40 mg PO QHS 12/03/15 11/13/18 12/20/17 History Mirtazapine [Remeron] 15 mg PO QHS 12/03/15 11/13/18 12/20/17 History Omeprazole [PriLOSEC] 40 mg PO QDAY 12/03/15 11/13/18 12/20/17 History Simvastatin (Nf) [Zocor TAB] 20 mg PO QHS 12/03/15 11/13/18 12/20/17 History Tizanidine HCl [Zanaflex] 4 mg PO TID 12/03/15 11/13/18 12/20/17 History Losartan/Hydrochlorothiazide 1 tab PO DAILY 12/28/15 11/13/18 12/20/17 History [Losartan-Hctz 100-12.5 mg Tab] Albuterol Sulfate [Proventil HFA] 2 puff INHALATION QDAY 08/19/16 11/13/18 12/20/17 History Budesonide/Formoterol Fumarate 2 puff INHALATION Q12H 08/19/16 11/13/18 12/20/17 History [Symbicort 160-4.5 Mcg Inhaler] SEROquel 300 mg PO HS 05/05/17 11/13/18 12/20/17 History Apixaban [Eliquis] 10 mg PO Q12HR #7 tablet 05/07/17 11/13/18 Unknown Rx cloNIDine [Catapres] 1 - 2 tab PO BID PRN 04/11/18 11/13/18 Unknown History Acetaminophen/Codeine [Tylenol 1 tab PO Q6H PRN #14 tab 06/30/18 11/13/18 Unknown Rx /Codeine # 3 tab] Amoxicillin/K Clav Tab [Augmentin 1 tab PO Q12HR 10 Days #20 tab 11/13/18 Unknown Rx 875 mg] Benzonatate [Tessalon Perles] 100 mg PO Q8HR PRN #20 capsule 11/13/18 Unknown Rx Fluticasone [Flonase] 1 spray NS QDAY #1 bottle 11/13/18 Unknown Rx Naproxen [Naprosyn] 500 mg PO BID #20 tablet 11/13/18 Unknown Rx ED Physical Exam - General Limitations: No Limitations, Other (upon entering the room, patient noted to be watching TV, and playing on a cellular phone.) General appearance: alert, in no apparent distress - Head Head exam: Present: atraumatic, normocephalic - Eye Eye exam: Present: normal appearance, PERRL, EOMI, other (visual acuity intact to finger counting, color perception, reading at a close distance). Absent: nystagmus - ENT ENT exam: Present: normal exam, normal orophraynx, mucous membranes moist, TM's normal bilaterally, normal external ear exam - Neck Neck exam: Present: normal inspection, full ROM. Absent: tenderness, meningismus - Respiratory Respiratory exam: Present: normal lung sounds bilaterally. Absent: respiratory distress - Cardiovascular Cardiovascular Exam: Present: regular rate, normal rhythm, normal heart sounds. Absent: bradycardia, tachycardia, irregular rhythm, systolic murmur, diastolic murmur, rubs, gallop - GI/Abdominal GI/Abdominal exam: Present: soft. Absent: distended, tenderness, guarding, rebound, rigid, pulsatile mass - Extremities Exam Extremities exam: Present: normal inspection, full ROM, other (2+ pulses noted in the bilateral upper, lower extremities. Compartments soft. No long bony tenderness. The pelvis is stable.). Absent: joint swelling, calf tenderness - Back Exam Back exam: Present: normal inspection, full ROM. Absent: tenderness, CVA tenderness (R), CVA tenderness (L), paraspinal tenderness, vertebral tenderness - Neurological Exam Neurological exam: Present: alert, oriented X3, normal gait, other (patient end orses decreased sensation to light touch left lower extremity. There is 5 out of 5 strength bilateral upper, lower extremities. Sensation intact to pinch bilateral upper, lower extremities. Proprioception intact in the bilateral upper extremities.) - Psychiatric Psychiatric exam: Present: anxious - Skin Skin exam: Present: warm, dry, intact, normal color. Absent: rash ED Course Vital Signs 04/02/19 04/02/19 04/02/19 16:36 19:46 20:00 Temperature 97.9 F 97.5 F L Pulse Rate 89 72 70 Respiratory 18 18 Rate Blood Pressure 112/79 97/60 O2 Sat by Pulse 99 100 Oximetry 04/02/19 20:15 Temperature Pulse Rate 70 Respiratory 14 Rate Blood Pressure 111/60 O2 Sat by Pulse 98 Oximetry - Reevaluation(s) Reevaluation #1: 04/02/19 21:20 Differential diagnosis, including not limited to: Migraine headache, tension headache, cluster headache, complex migraine, intracranial hemorrhage, cervical radiculopathy Urinary tract infection, retroperitoneal hematoma, mechanical back pain Assessment and plan: 48-year-old female with 1 month intermittent multiple location headaches, with intermittent complaint of left arm dysesthesia. Patient appears quite comfortable, does not have any midline neck pain, and her exam and history are not suggestive of epidural compression syndrome, or ep idural bleed. Stroke is quite unlikely given history and physical. Suspect components of cervical radiculopathy or complex migraine. A noncontrast CT scan of the brain is requested and appears to be unremarkable so far, pending formal interpretation. A neurology consult has been requested. We are waiting for them to evaluate the patient. On review of systems, the patient was nonspecific urinary symptoms, as well as left paralumbar back pain. We will obtain urinalysis, and noncontrast CT scan of the abdomen and pelvis. Reevaluation #2: 04/02/19 22:47 CT scan of the brain negative for acute disease. CT scan of the abdomen and pelvis negative for acute disease. Urinalysis is pending. Resting comfortably, and in no acute distress. Discussed case with neurology, Dr. Goode, who agrees that this is unlikely to be an acute ischemic event. She indicates she will evaluate the patient. Reevaluation #3: 04/02/19 23:28 We discussed with neurology, Dr. Goode. Apparently, the patient endorses nonspecific facial symptoms, in conjunction with her other aforementioned symptoms. Neurology recommends admission for TIA versus stroke workup. Hospital physician, Dr. Denny Melchor accepts to his service ED Medical Decision Making - Lab Data Result diagrams: 04/02/19 16:49 04/02/19 16:49 Vital Signs - 24 hr 04/02/19 04/02/19 04/02/19 16:36 19:46 20:00 Temperature 97.9 F 97.5 F L Pulse Rate 89 72 70 Respiratory 18 18 Rate Blood Pressure 112/79 97/60 O2 Sat by Pulse 99 100 Oximetry 04/02/19 20:15 Temperature Pulse Rate 70 Respiratory 14 Rate Blood Pressure 111/60 O2 Sat by Pulse 98 Oximetry Lab Results 04/02/19 04/02/19 04/02/19 Range/Units 16:49 16:49 16:49 WBC 7.6 (4.5-11.0) K/mm3 RBC 3.94 (3.65-5.03) M/mm3 Hgb 11.8 (10.1-14.3) gm/dl Hct 35.6 (30.3-42.9) % MCV 90 (79-97) fl MCH 30 (28-32) pg MCHC 33 (30-34) % RDW 14.6 (13.2-15.2) % Plt Count 331 (140-440) K/mm3 Lymph % (Auto) 38.0 H (13.4-35.0) % [place] % (Auto) 6.0 (0.0-7.3) % Eos % (Auto) 2.3 (0.0-4.3) % Baso % (Auto) 0.7 (0.0-1.8) % Lymph # 2.9 (1.2-5.4) K/mm3 [place] # 0.5 (0.0-0.8) K/mm3 Eos # 0.2 (0.0-0.4) K/mm3 Baso # 0.1 (0.0-0.1) K/mm3 Seg Neutrophils % 53.0 (40.0-70.0) % Seg Neutrophils # 4.0 (1.8-7.7) K/mm3 Sodium 138 (137-145) mmol/L Potassium 3.6 (3.6-5.0) mmol/L Chloride 100.1 (98-107) mmol/L Carbon Dioxide 24 (22-30) mmol/L Anion Gap 18 mmol/L BUN 10 (7-17) mg/dL Creatinine 0.9 (0.7-1.2) mg/dL Estimated GFR > 60 ml/min BUN/Creatinine Ratio 11 % Glucose 118 H (65-100) mg/dL Calcium 9.5 (8.4-10.2) mg/dL Magnesium 1.90 (1.7-2.3) mg/dL Total Bilirubin 0.20 (0.1-1.2) mg/dL AST 17 (5-40) units/L ALT 21 (7-56) units/L Alkaline Phosphatase 116 (35-129) units/L Total Creatine Kinase 180 H (30-135) units/L Total Protein 7.5 (6.3-8.2) g/dL Albumin 4.3 (3.9-5) g/dL Albumin/Globulin Ratio 1.3 % - EKG Data -: EKG Interpreted by Ak EKG shows normal: sinus rhythm Rate: normal - EKG Data 04/02/19 21:20 This is a normal sinus rhythm, 81 bpm, QTC within normal limits, left ventricular hypertrophy, poor R-wave progression, no endorsement of chest pain, motion artifact, not consistent with ST elevation myocardial infarction, appears unchanged from prior EKG from 2017 - Radiology Data Radiology results: pending Critical care attestation.: If time is entered above; I have spent that time in minutes in the direct care of this critically ill patient, excluding procedure time. ED Disposition Clinical Impression: Headache, Left sided numbness Disposition: DC-09 OP ADMIT IP TO THIS HOSP Is pt being admited?: Yes Does the pt Need Aspirin: Yes Condition: Good Referrals: RISHI KANGPOLLARD MD ARON [Primary Care Provider] - 3-5 Days - Assessment Assessment Interval: Baseline - Level of Consciousness 1a. Level of Consciousness: alert/keenly responsive - LOC Questions 1b. LOC Questions: answers both correctly - LOC Command 1c. LOC Commands: performs tasks correctly - Best Gaze 2. Best Gaze: normal - Visual 3. Visual: no visual loss - Facial Palsy 4. Facial Palsy: normal symmetrical movement - Motor Arm 5a. Motor Arm Left: no drift 5b. Motor Arm Right: no drift - Motor Leg 6a. Motor Leg Left: no drift 6b. Motor Leg Right: no drift - Limb Ataxia 7. Limb Ataxia: absent - Sensory 8. Sensory: mild/moderate sensory loss - Best Language 9. Best Language: no aphasia - Dysarthria 10. Dysarthria: normal - Extinction and Inattention 11. Extinction/Inattention: no abnormality - Scoring Total Score: 1 Stroke Severity: Minor Stroke
--- NOTE | 2019-04-02 21:26 | Cat Scan Report ---
PROCEDURE: CT HEAD/BRAIN WO CON TECHNIQUE: Computerized tomography of the head was performed without contrast material. CT DOSE LENGTH PRODUCT: 1035.5 mGycm HISTORY: Headache. Left upper extremity numbness COMPARISONS: Prior CT scan of the brain 07/12/2014 . FINDINGS: Brain: Brain density appears normal. No evidence of intracranial hemorrhage. No parenchymal hemorr thuy, mass lesions or mass effect are seen. No abnormal extra-axial fluid collects or masses are see n. There is mild nonspecific mineralization of the basal ganglia. Ventricles: Ventricles are normal size and are midline. Bone Windows: No evidence of skull fracture. Paranasal sinuses: Visualized portions are clear.. Mastoid air cells: Clear. IMPRESSION: Negative exam. . This document is electronically signed by Rafael Meneses MD., April 02 2019 09:24:34 PM ET
--- NOTE | 2019-04-02 21:38 | Cat Scan Report ---
PROCEDURE: CT ABDOMEN PELVIS WO CON HISTORY: back pain on eliquis ? [facility] FINDINGS: Unenhanced CT of the abdomen and pelvis was performed. The heart is normal in size. The lung bases appear clear. ABDOMEN: The unenhanced liver displays no suspect focal lesion. The spleen is normal in size. The adrenal glands pancreas and gallbladder are unremarkable. There has been a right nephrectomy. The left kidney is unremarkable. There is mild aortic atheroscler otic change without aneurysmal dilation of the aorta. There is no hemoperitoneum or retroperitoneal hemorrhage. No fracture is seen in the lumbar spine. There is been bilateral laminectomy at L5 and there are post erior pedicle screws in L5 and S1. There is mild to moderate left foraminal narrowing due to endplate remodeling without evidence of nerve root impingement. There is a fat-containing umbilical hernia. Pelvis: There is a normal appendix. There is no evidence of diverticulitis. There is no adnexal mass. The uri nary bladder is within normal limits. There have been bilateral hip replacements. IMPRESSION: ABDOMEN: Right nephrectomy No intraperitoneal or retroperitoneal hemorrhage Pelvis: Normal appendix This document is electronically signed by Abner Patel MD., April 02 2019 09:36:48 PM ET
[2019-04-02 23:13] LABS: Bacteria,Urine 1+ /HPF (Negative); Bilirubin,Urine NEG (Negative); Blood,Urine SM (Negative); Color,Urine Yellow (Yellow); Mucus,Urine FEW /HPF; Protein,Urine <15 mg/dL mg/dL (Negative); Urobilinogen,Urine < 2.0 mg/dL (<2.0)
[2019-04-02] MEDS ORDERED: BABY ASPIRIN PO ONE (23:29)
[2019-04-03] MEDS ORDERED: ZOFRAN IV PRN (00:42)
[2019-04-03] MEDS ORDERED: TYLENOL PO PRN (00:42)
[2019-04-03] MEDS ORDERED: D50W (25GM) Syringe IV PRN (00:44)
[2019-04-03] MEDS ORDERED: CATAPRES PO PRN (00:48)
[2019-04-03] MEDS ORDERED: TESSALON PERLES PO PRN (00:48)
[2019-04-03] MEDS ORDERED: NON-FORMULARY (Budesonide/Formoterol Fumarate [Symbicort 160-4.5 Mcg Inhaler] 2 PUFF) INHALATION SCH (01:00)
[2019-04-03] MEDS: BROVANA NEBU IH SCH ×2 (08:08→20:55)
[2019-04-03] MEDS: PULMICORT IH SCH ×2 (08:10→20:55)
[2019-04-03] MEDS: HumuLIN R SUB-Q SCH ×3 (08:12→16:38)
[2019-04-03] MEDS: CARDIZEM CD PO SCH (09:12)
[2019-04-03] MEDS: COZAAR PO SCH (09:13)
[2019-04-03] MEDS: HALFPRIN EC PO SCH (09:16)
[2019-04-03] MEDS: AUGMENTIN 875 MG PO SCH ×2 (09:16→21:14)
[2019-04-03] MEDS: ZANAFLEX PO SCH ×3 (09:16→21:14)
[2019-04-03] MEDS: PROTONIX PO SCH (09:16)
[2019-04-03] MEDS: HCTZ PO SCH (09:17)
[2019-04-03] MEDS: FLONASE NS SCH (09:17)
[2019-04-03] MEDS: LYRICA PO SCH ×2 (09:17→21:11)
[2019-04-03] MEDS ORDERED: ASPIRIN PO SCH (10:00)
[2019-04-03] MEDS ORDERED: PROAIR IH SCH (10:00)
--- NOTE | 2019-04-03 10:04 | Vascular Lab Report ---
PROCEDURE: VL CAROTID DUPLEX BILAT TECHNIQUE: Carotid duplex Doppler ultrasound. Grayscale, color flow and spectral waveform images wer e obtained. HISTORY: LEFT UPPER AND LOWER LIMB WEAKNESS COMPARISON: None FINDINGS: There is mild amount of plaque present with carotid bifurcation regions and proximal ICAs. There is no abnormal elevation in carotid flow velocity. ICA/CCA ratios are normal, 0.83 on the right 0.88 left. Findings indicate no hemodynamically significant stenosis. Specifically findings correspo nd to stenoses of less than 50%. Vertebral artery flow is antegrade bilaterally. IMPRESSION: No evidence of any hemodynamically significant stenosis. This document is electronically signed by Rosa Kline MD., April 03 2019 10:02:31 AM ET
[2019-04-03] MEDS: NAPROSYN PO SCH ×2 (11:00→21:15)
--- NOTE | 2019-04-03 11:54 | Magnetic Resonance Report ---
PROCEDURE: MR BRAIN WO CON TECHNIQUE: MRI of the brain performed. Images include sagittal T1, axial diffusion, axial ADC map, a xial T2 GRE, axial T2, axial FLAIR, axial T1, coronal FLAIR HISTORY: LEFT UPPER AND LOWER LIMB NUMBNESS COMPARISON: None FINDINGS: There is no diffusion restriction to indicate acute ischemia/infarct. There is no acute intracranial hemorrhage seen. There is no edema, mass effect or midline shift. There are a few minimal scattered foci of high signal in the white matter. Most likely these reflect minimal small vessel ischemic vessel disease. Ventricular size is appropriate for brain volume. There is no abnormal extra-axial fluid collection seen. IMPRESSION: There is no acute abnormality identified. This document is electronically signed by Rosa Kline MD., April 03 2019 11:52:38 AM ET
[2019-04-03] MEDS: PROVENTIL IH SCH (12:07)
--- NOTE | 2019-04-03 13:31 | Progress Note ---
Assessment and Plan Assessment and plan: Hypertension. Cont. Cardizem, Cozaar and clonidine Headache. Etiology likely secondary to uncontrolled HTN. MRI and CT head negative intermittent left arm numbness. ? radiculopathy. Check cervical spine films GERD/Gastritis. Cont. Protonix history of kidney cancer. s/p nephrectomy History of pulmonary embolism. Cont. on systemic anticoagulation, eliquis and aspirin Hyperlipidemia. Cont. Statin Disposition. Anticipate d/c in am History Interval history: The patient is sent to the emergency room by PCP for evaluation of headache, intermittent left arm numbness, and hypertension. Hospitalist Physical - Constitutional Vitals: Temp Pulse Resp BP Pulse Ox 98.0 F 65 18 143/74 100 04/03/19 07:13 04/03/19 09:13 04/03/19 08:26 04/03/19 09:13 04/03/19 08:11 General appearance: Present: no acute distress, well-nourished - EENT Eyes: Present: PERRL, EOM intact ENT: hearing intact, clear oral mucosa, dentition normal - Neck Neck: Present: supple, normal ROM - Respiratory Respiratory effort: normal Respiratory: bilateral: CTA - Cardiovascular Rhythm: regular Heart Sounds: Present: S1 & S2. Absent: gallop, rub - Extremities Extremities: no ischemia, No edema, Full ROM - Abdominal General gastrointestinal: soft, non-tender, non-distended, normal bowel sounds - Integumentary Integumentary: Present: clear, warm, dry - Neurologic Neurologic: CNII-XII intact, moves all extremities Results - Labs CBC & Chem 7: 04/02/19 16:49 04/02/19 16:49 Labs: Laboratory Last Values WBC 7.6 K/mm3 (4.5-11.0) 04/02/19 16:49 RBC 3.94 M/mm3 (3.65-5.03) 04/02/19 16:49 Hgb 11.8 gm/dl (10.1-14.3) 04/02/19 16:49 Hct 35.6 % (30.3-42.9) 04/02/19 16:49 MCV 90 fl (79-97) 04/02/19 16:49 MCH 30 pg (28-32) 04/02/19 16:49 MCHC 33 % (30-34) 04/02/19 16:49 RDW 14.6 % (13.2-15.2) 04/02/19 16:49 Plt Count 331 K/mm3 (140-440) 04/02/19 16:49 Lymph % (Auto) 38.0 % (13.4-35.0) H 04/02/19 16:49 [place] % (Auto) 6.0 % (0.0-7.3) 04/02/19 16:49 Eos % (Auto) 2.3 % (0.0-4.3) 04/02/19 16:49 Baso % (Auto) 0.7 % (0.0-1.8) 04/02/19 16:49 Lymph # 2.9 K/mm3 (1.2-5.4) 04/02/19 16:49 [place] # 0.5 K/mm3 (0.0-0.8) 04/02/19 16:49 Eos # 0.2 K/mm3 (0.0-0.4) 04/02/19 16:49 Baso # 0.1 K/mm3 (0.0-0.1) 04/02/19 16:49 Seg Neutrophils % 53.0 % (40.0-70.0) 04/02/19 16:49 Seg Neutrophils # 4.0 K/mm3 (1.8-7.7) 04/02/19 16:49 Sodium 138 mmol/L (137-145) 04/02/19 16:49 Potassium 3.6 mmol/L (3.6-5.0) 04/02/19 16:49 Chloride 100.1 mmol/L (98-107) 04/02/19 16:49 Carbon Dioxide 24 mmol/L (22-30) 04/02/19 16:49 18 mmol/L 04/02/19 16:49 BUN 10 mg/dL (7-17) 04/02/19 16:49 0.9 mg/dL (0.7-1.2) 04/02/19 16:49 Estimated GFR > 60 ml/min 04/02/19 16:49 11 % 04/02/19 16:49 Glucose 118 mg/dL (65-100) H 04/02/19 16:49 POC Glucose 159 (70-105) H 04/03/19 13:01 Calcium 9.5 mg/dL (8.4-10.2) 04/02/19 16:49 Magnesium 1.90 mg/dL (1.7-2.3) 04/02/19 16:49 0.20 mg/dL (0.1-1.2) 04/02/19 16:49 AST 17 units/L (5-40) 04/02/19 16:49 ALT 21 units/L (7-56) 04/02/19 16:49 116 units/L (35-129) 04/02/19 16:49 180 units/L (30-135) H 04/02/19 16:49 7.5 g/dL (6.3-8.2) 04/02/19 16:49 4.3 g/dL (3.9-5) 04/02/19 16:49 1.3 % 04/02/19 16:49 Yellow (Yellow) 04/02/19 22:55 Slightly-cloudy (Clear) 04/02/19 22:55 5.0 (5.0-7.0) 04/02/19 22:55 Ur Specific [place] 1.010 (1.003-1.030) 04/02/19 22:55 <15 mg/dl mg/dL (Negative) 04/02/19 22:55 Neg mg/dL (Negative) 04/02/19 22:55 Neg mg/dL (Negative) 04/02/19 22:55 Sm (Negative) 04/02/19 22:55 Neg (Negative) 04/02/19 22:55 Neg (Negative) 04/02/19 22:55 < 2.0 mg/dL (<2.0) 04/02/19 22:55 Ur Leukocyte Esterase Neg (Negative) 04/02/19 22:55 4.0 /HPF (0.0-6.0) 04/02/19 22:55 2.0 /HPF (0.0-6.0) 04/02/19 22:55 U Epithel Cells (Auto) 3.0 /HPF (0-13.0) 04/02/19 22:55 1+ /HPF (Negative) 04/02/19 22:55 Few /HPF 04/02/19 22:55 Active Medications - Current Medications Current Medications: Generic Name Dose Route Start Last Admin Trade Name Freq PRN Reason Stop Dose Admin Acetaminophen 650 mg 04/03/19 00:42 04/03/19 06:48 Tylenol PO 650 mg Q4H PRN Administration Headache Albuterol 2.5 mg 04/03/19 10:00 04/03/19 12:07 Proventil IH Not Given QDAY RADHA Amoxicillin/Clavulanate Potassium 1 each 04/03/19 10:00 04/03/19 09:16 Augmentin 875 Mg PO 1 each Q12HR RADHA Administration Arformoterol Tartrate 15 mcg 04/03/19 08:00 04/03/19 08:08 Brovana Nebu IH 15 mcg Q12HRT RADHA Administration Aspirin 81 mg 04/03/19 10:00 04/03/19 09:16 Halfprin Ec PO 81 mg QDAY RADHA Administration Benzonatate 100 mg 04/03/19 00:48 Tessalon Perles PO Q8H PRN Cough Budesonide 1 mg 04/03/19 08:00 04/03/19 08:10 Pulmicort IH 1 mg Q12HRT RADHA Administration Clonidine HCl 0.1 mg 04/03/19 00:48 Catapres PO BID PRN hot flashes Dextrose 50 ml 04/03/19 00:44 D50w (25gm) Syringe IV PRN PRN Hypoglycemia Diltiazem HCl 360 mg 04/03/19 10:00 04/03/19 09:12 Cardizem Cd PO 360 mg DAILY RADHA Administration Fluticasone Propionate 50 mcg 04/03/19 10:00 04/03/19 09:17 Flonase NS Not Given QDAY [facility] Hydrochlorothiazide 12.5 mg 04/03/19 10:00 04/03/19 09:17 Hctz PO 12.5 mg QDAY RADHA Administration Insulin Human Regular 0 units 04/03/19 07:30 04/03/19 08:12 Humulin R SUB-Q Not Given AC [facility] Protocol Insulin Human Regular 0 units 04/03/19 22:00 Humulin R SUB-Q QHS [facility] Protocol Losartan Potassium 100 mg 04/03/19 10:00 04/03/19 09:13 Cozaar PO 100 mg DAILY RADHA Administration Mirtazapine 15 mg 04/03/19 22:00 Remeron PO QHS RADHA Naproxen 500 mg 04/03/19 10:00 Naprosyn PO BID RADHA Ondansetron HCl 4 mg 04/03/19 00:42 Zofran IV Q8H PRN Nausea And Vomiting Pantoprazole Sodium 40 mg 04/03/19 10:00 04/03/19 09:16 Protonix PO 40 mg QDAY RADHA Administration Pravastatin Sodium 20 mg 04/03/19 22:00 Pravachol PO QHS RADHA Pregabalin 300 mg 04/03/19 10:00 04/03/19 09:17 Lyrica PO 300 mg BID RADHA Administration Quetiapine Fumarate 300 mg 04/03/19 22:00 Seroquel PO HS RADHA Tizanidine HCl 4 mg 04/03/19 08:00 04/03/19 09:16 Zanaflex PO 4 mg TID RADHA Administration
--- NOTE | 2019-04-03 13:49 | History and Physical Report ---
CHIEF COMPLAINT: Numbness in the left upper and lower extremities. HISTORY OF PRESENT ILLNESS: The patient is a 48-year-old female who says she has been having numbness involving the left upper and lower extremities going on for about one month. The patient denied history of weakness of the limbs and denied any speech impairment, dizziness, blurry vision, shortness of breath or chest pain and presented for evaluation. PAST MEDICAL HISTORY: The patient's past medical history is pertinent for hypertension, diabetes mellitus, pulmonary embolism, gastroesophageal reflux disease, cancer of the kidney, arthritis, asthma, pneumonias and ulcers. PAST SURGICAL HISTORY: Pertinent for 2 hip replacement surgeries, back surgery, right hand surgery, right nephrectomy. FAMILY HISTORY: Reviewed and noncontributory. SOCIAL HISTORY: The patient lives with family, smokes cigarettes, does not drink alcohol, and does not use illicit drugs. MEDICATIONS: The patient is on the following medications: Lyrica 300 mg by mouth twice daily, enteric-coated aspirin 81 mg by mouth daily, Cardizem long acting 360 mg by mouth daily, Pepcid 40 mg by mouth at bedtime, Remeron, mirtazapine 15 mg by mouth at bedtime, Prilosec or omeprazole 40 mg by mouth daily, Zocor or simvastatin 20 mg at bedtime, tizanidine or Zanaflex 4 mg by mouth 3 times daily, losartan/HCTZ 100/12.5 mg 1 by mouth daily, albuterol 2 puffs 3 inhalation daily, budesonide/formoterol or Symbicort 160/4.5 mcg inhaler 2 puffs by inhalation every 12 hours, Seroquel 300 mg by mouth at bedtime, Eliquis 10 mg by mouth q. 12 hours, clonidine 1-2 tablets by mouth twice daily as need for hot flashes, Tylenol No. 3 one by mouth every 6 hours as needed for pain, Augmentin 875 mg 1 by mouth every 12 hours, Tessalon Perles or benzonatate 100 mg by mouth every 8 hours as needed for cough, Flonase 1 spray through each nostril daily, naproxen 500 mg by mouth twice daily. ALLERGIES: THE PATIENT IS ALLERGIC TO HYDROMORPHONE, HYDROCHLORIDE AND TOMATOES. REVIEW OF SYSTEMS: CONSTITUTIONAL: There is no fever, no chills, no diaphoresis. HEENT: There is no headache or sore throat. CARDIOVASCULAR SYSTEM: There is no chest pain or orthopnea. RESPIRATORY SYSTEM: There is no shortness of breath or cough. GASTROINTESTINAL SYSTEM: There is no nausea, no vomiting, no abdominal pain, diarrhea or constipation. NEUROLOGICAL SYSTEM: Numbness of the left upper and lower extremity noted. No altered mental status. No speech impairment. No blurry vision or dizziness. MUSCULOSKELETAL SYSTEM: There is no joint pain or swelling. DERMATOLOGICAL SYSTEM: There is no skin rash or itching. GENITOURINARY SYSTEM: There is no dysuria, hematuria, or flank pain. Rest of system review is normal. PHYSICAL EXAMINATION: GENERAL: At the time of exam, the patient was found to be alert, oriented x 3, and not in acute distress. VITAL SIGNS: Shows normal temperature with pulse of 70, respiration of 14, blood pressure 111/60, O2 sat of 98% on room air. HEENT: Showed pupils to be equal, round, reactive to light and accommodation. Extraocular muscles are intact. NECK: Supple with no JVD or carotid bruits. CARDIOVASCULAR SYSTEM: Showed normal first and second heart sounds with no gallops or murmurs. RESPIRATORY SYSTEM: Showed good air entry on both sides of the lungs with no abnormal breath sounds. GASTROINTESTINAL SYSTEM: Showed abdomen to be full, soft, nontender with no organomegaly or rigidity. NEUROLOGIC: Shows no focal deficit, muscle strength is normal and equal on both sides with no loss of sensory function. MUSCULOSKELETAL SYSTEM: Showed no joint tenderness or swelling. DERMATOLOGICAL SYSTEM: Showed no skin rash. GENITOURINARY SYSTEM: Showed no costovertebral angle tenderness. PERTINENT LABORATORY: The patient has CBC done that came back unremarkable except for elevated lymphocyte count of 38% on CBC differential. The patient's chemistry came back unremarkable. Urinalysis was unremarkable. IMAGING STUDIES: The patient had a CT of the head without contrast done that came back showing negative exam and also the patient had CT of the abdomen and pelvis done without contrast and it shows evidence of right nephrectomy in the abdomen and no intraperitoneal or retroperitoneal hemorrhage was found. The appendix was normal. DIAGNOSIS: Left upper limb and lower limb numbness. PLAN OF CARE: 1. The patient will be admitted as inpatient to telemetry. 2. The patient will have MRI of the brain without contrast done in the morning and will also have bilateral carotid Doppler done in the morning. 3. The patient will have 2D echo done in the morning. 4. The patient will be on Accu-Cheks a.c. and at bedtime, followed by sliding scale using regular insulin coverage and using low-dose sliding scale. 5. The patient's DVT prophylaxis will be through sequential compressive device until the patient is ruled out for stroke. 6. The patient has already had a tele-neurology in the Emergency Room and there is no Neurology coverage during the weekend, so the patient's Neurology involvement will be on Friday when a neurologist is available or through tele-neurology if need be. 7. The patient has already had swallow test and was able to eat during the time of evaluation without any choking sensation. 8. The patient will be on home medication as shown in the medication reconciliation section. 9. The patient's diet will be consistent with carbohydrate 2 g sodium diet. 10. The patient will be on Tylenol 650 mg by mouth every 4 hours for fever and headache and will be on aspirin 81 mg daily. Also, the patient will be on IV Zofran 4 mg every 8 hours for nausea and vomiting. JOB# [id number] OCN/NTS
--- NOTE | 2019-04-03 17:35 | XRay Report ---
PROCEDURE: XR SPINE CERVICAL 2-3V TECHNIQUE: Cervical spine 3 views HISTORY: left arm numbness COMPARISONS: FINDINGS: Cervical spine 3 views there is small inferior anterior osteophyte at C5. Vertebral bodies are normal in height and alignment. Disc spaces are within normal limits. Facet joints demonstrate normal align ment. Spinous processes are intact. C1 and C2 appear within normal limits. IMPRESSION: Minimal spondylosis otherwise negative study . This document is electronically signed by Patrick Timmons MD., April 03 2019 05:33:04 PM ET
[2019-04-03] MEDS ORDERED: PERCOCET 5/325 PO PRN (18:43)
[2019-04-03] MEDS: ELIQUIS PO SCH (21:13)
[2019-04-03] MEDS ORDERED: NON-FORMULARY (Famotidine [Pepcid] 40 MG) PO SCH (22:00)
[2019-04-03] MEDS ORDERED: HumuLIN R SUB-Q SCH (22:00)
[2019-04-03] MEDS ORDERED: PRAVACHOL PO SCH (22:00)
[2019-04-03] MEDS ORDERED: REMERON PO SCH (22:00)
[2019-04-04] MEDS: PULMICORT IH SCH (08:51)
[2019-04-04] MEDS: PROVENTIL IH SCH ×2 (08:51→10:51)
[2019-04-04] MEDS: BROVANA NEBU IH SCH (08:52)
[2019-04-04 09:21] VITALS: BP 130/61
--- NOTE | 2019-04-04 09:53 | Discharge Summary ---
Providers - Providers Date of Admission: 04/03/19 00:00 Date of discharge: 04/04/19 Attending physician: JACKELINE SAGE 04/02/19 20:22 Consult to Physician [CONS] Urgent Comment: Consulting Provider: JOSH PIRES Physician Instructions: Reason For Exam: henry htn lue numbness x 1 month Primary care physician: [facility], Hospitalization Reason for admission: uncontrolled htn, h/a Condition: Good Hospital course: This is a 48-year-old female with PMH significant for Hypertension, GERD, g astritis, history of kidney cancer, history of nephrectomy, history of pulmonary embolism, currently on systemic anticoagulation, eliquis and aspirin who was sent to the emergency room by her primary care doctor. The patient reportedly had hypertension in her doctor's office, and was given clonidine. The patient was sent to the emergency room for evaluation of headache, intermittent left arm numbness, and hypertension. The headache was intermittent and present for 1 month. The headache does not have exacerbating or relieving factors but is associated with left arm numbness. The paresthesias and headache most likely related to uncontrolled hypertension. Patient underwent stroke workup. Patient had CT scan of the head and MRI of the brain which was found to be negative. Echocardiogram showed mild left ventricular hypertrophy with mildly decreased EF of 45-50%. No significant valvular heart disease. No visual thrombus. Cervical spine films were obtained to assess any abnormality that may be related to radiculopathy which showed mild spondylosis. The patient is felt to have received maximal hospital benefit and will be discharged home. Dedicated discharge time 32 minutes. Disposition: - TO HOME OR SELFCARE Time spent for discharge: 32 - Discharge Diagnoses (1) Headache Status: Acute (2) Left sided numbness Status: Acute (3) Accelerated hypertension Status: Acute Core Measure Documentation - Palliative Care Palliative Care/ Comfort Measures: Not Applicable - Core Measures Any of the following diagnoses?: none Exam - Constitutional Vitals: Temp Pulse Resp BP Pulse Ox 98.2 F 75 20 130/61 96 04/04/19 07:57 04/04/19 07:57 04/04/19 07:57 04/04/19 07:57 04/04/19 07:57 General appearance: Present: no acute distress, well-nourished - EENT Eyes: Present: PERRL ENT: hearing intact, clear oral mucosa - Neck Neck: Present: supple, normal ROM - Respiratory Respiratory effort: normal Respiratory: bilateral: CTA - Cardiovascular Heart Sounds: Present: S1 & S2. Absent: rub, click - Extremities Extremities: pulses symmetrical, No edema Peripheral Pulses: within normal limits - Abdominal General gastrointestinal: Present: soft, non-tender, non-distended, normal bowel sounds Female genitourinary: Present: normal - Integumentary Integumentary: Present: clear, warm, dry - Musculoskeletal Musculoskeletal: gait normal, strength equal bilaterally - Psychiatric Psychiatric: appropriate mood/affect, intact judgment & insight - Neurologic Neurologic: CNII-XII intact, moves all extremities Plan Activity: advance as tolerated Weight Bearing Status: Weight Bear as Tolerated Diet: low fat, low cholesterol, low salt Follow up with: RISHI KANGPORT ORANGE MD ARON [Primary Care Provider] - 3-5 Days Prescriptions: Aspirin EC 81 mg PO QDAY #30 tablet cloNIDine [Catapres] 1 - 2 tab PO BID PRN #30 tablet PRN Reason: hot flashes Apixaban [Eliquis] 10 mg PO Q12HR #7 tablet Famotidine [Pepcid] 40 mg PO QHS #30 tablet Acetaminophen/Codeine [Tylenol /Codeine # 3 tab] 1 tab PO Q6H PRN #14 tab PRN Reason: Pain , Severe (7-10)
[2019-04-04] MEDS: LYRICA PO SCH (10:41)
[2019-04-04] MEDS: HALFPRIN EC PO SCH (10:42)
[2019-04-04] MEDS: AUGMENTIN 875 MG PO SCH (10:42)
[2019-04-04] MEDS: HCTZ PO SCH (10:42)
[2019-04-04] MEDS: ZANAFLEX PO SCH (10:42)
[2019-04-04] MEDS: PROTONIX PO SCH (10:42)
[2019-04-04] MEDS: ELIQUIS PO SCH (10:42)
[2019-04-04] MEDS: HumuLIN R SUB-Q SCH (10:43)
[2019-04-04] MEDS: CARDIZEM CD PO SCH (10:44)
[2019-04-04] MEDS: COZAAR PO SCH (10:45)
[2019-04-04] MEDS: NAPROSYN PO SCH (10:46)
[2019-04-04] MEDS: FLONASE NS SCH (10:47)
--- NOTE | 2019-04-05 18:28 | Consultation ---
History of Present Illness Consult date: 04/02/19 Chief complaint: headache, numbness History of present illness: 48 yo female here for headache, numbness in left f/a/l- She states that it started with a bad headache back a month and a half ago- then today her BP was high so her therapist told her to go to her PCP and it was high, was given 2 pills, had numbness and tingling in left side and down her neck as well; her BP was 168/100; usually her BP is lower than that. Has had the left side tingling with her since 1.5 months ago- didnt see a doctor about it- due to it being off/on; 3 weeks ago had it become constant; all on left side. +DM, + tobacco- 2 cigarettes a day, has h/o HL; no h/o stroke or TIA; + family history in mother of stroke who passed at 52 years of age; Not taking aspirin daily due to doc not giving her a refill; no h/o stroke in past not on any hormones this has been going on for about a month off/on for a while, then 2 weeks ago wa s constant- it was worse last 2 days and today when BP was high it seemed worse as well Medications and Allergies Allergies Allergy/AdvReac Type Severity Reaction Status Date / Time hydromorphone HCl Allergy Hives Verified 04/02/19 16:32 [From Dilaudid] tomato [Tomato] Allergy Hives Verified 04/02/19 16:32 Home Medications Medication Instructions Recorded Confirmed Last Taken Type Pregabalin [Lyrica] 300 mg PO BID 12/17/13 04/03/19 12/20/17 History Diltiazem HCl [Cardizem LA] 360 mg PO DAILY 12/03/15 04/03/19 12/20/17 History Mirtazapine [Remeron] 15 mg PO QHS 12/03/15 04/03/19 12/20/17 History Omeprazole [PriLOSEC] 40 mg PO QDAY 12/03/15 04/03/19 12/20/17 History Simvastatin (Nf) [Zocor TAB] 20 mg PO QHS 12/03/15 04/03/19 12/20/17 History Tizanidine HCl [Zanaflex] 4 mg PO TID 12/03/15 04/03/1912/20/18 History Losartan/Hydrochlorothiazide 1 tab PO DAILY 12/28/15 04/03/19 12/20/17 History [Losartan-Hctz 100-12.5 mg Tab] Albuterol Sulfate [Proventil HFA] 2 puff INHALATION QDAY 08/19/16 04/03/19 12/20/17 History Budesonide/Formoterol Fumarate 2 puff INHALATION Q12H 08/19/16 04/03/19 12/20/17 History [Symbicort 160-4.5 Mcg Inhaler] SEROquel 300 mg PO HS 05/05/17 04/03/19 12/20/17 History Amoxicillin/K Clav Tab [Augmentin 1 tab PO Q12HR 10 Days #20 tab 11/13/18 04/03/19 Unknown Rx 875MG TAB] Benzonatate [Tessalon Perles] 100 mg PO Q8HR PRN #20 capsule 11/13/18 04/03/19 Unknown Rx Fluticasone [Flonase] 1 spray NS QDAY #1 bottle 11/13/18 04/03/19 Unknown Rx Naproxen [Naprosyn TAB] 500 mg PO BID #20 tablet 11/13/18 04/03/19 Unknown Rx Acetaminophen/Codeine [Tylenol 1 tab PO Q6H PRN #14 tab 04/04/19 Unknown Rx /Codeine # 3 tab] Apixaban [Eliquis] 10 mg PO Q12HR #7 tablet 04/04/19 Unknown Rx Aspirin EC 81 mg PO QDAY #30 tablet 04/04/19 Unknown Rx Famotidine [Pepcid] 40 mg PO QHS #30 tablet 04/04/19 Unknown Rx cloNIDine [Catapres] 1 - 2 tab PO BID PRN #30 tablet 04/04/19 Unknown Rx Physical Examination - Vital Signs Vital Signs: Vital Signs Temp Pulse Resp BP Pulse Ox 97.9 F 89 18 112/79 99 04/02/19 16:36 04/02/19 16:36 04/02/19 16:36 04/02/19 16:36 04/02/19 16:36 - Level of Consciousness 1a. Level of Consciousness: alert/keenly responsive - LOC Questions 1b. LOC Questions: answers both correctly - LOC Command 1c. LOC Commands: performs tasks correctly - Best Gaze 2. Best Gaze: normal - Visual 3. Visual: no visual loss - Facial Palsy 4. Facial Palsy: normal symmetrical movement - Motor Arm 5a. Motor Arm Left: no drift 5b. Motor Arm Right: no drift - Motor Leg 6a. Motor Leg Left: no drift 6b. Motor Leg Right: no drift - Limb Ataxia 7. Limb Ataxia: absent - Sensory 8. Sensory: mild/moderate sensory loss - Best Language 9. Best Language: no aphasia - Dysarthria 10. Dysarthria: normal - Extinction and Inattention 11. Extinction/Inattention: no abnormality - Scoring Total Score: 1 Stroke Severity: Minor Stroke Results - Laboratory Findings CBC and BMP: 04/02/19 16:49 04/02/19 16:49 Abnormal Lab Findings: Abnormal Labs 04/02/19 04/02/19 04/02/19 16:49 16:49 16:49 Lymph % (Auto) 38.0 H Glucose 118 H POC Glucose Total Creatine Kinase 180 H 04/03/19 04/03/19 04/03/19 07:21 13:01 16:00 Lymph % (Auto) Glucose POC Glucose 119 H 159 H 113 H Total Creatine Kinase 04/03/19 04/04/19 21:32 08:04 Lymph % (Auto) Glucose POC Glucose 181 H 272 H Total Creatine Kinase Assessment and Plan r/o stroke given many stroke risk factors and strong family history with mother passing from stroke/heart disease at age 5252 years old; aspirin now; bring BP down; 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 Shakila Goode MD *delay in documentation related to technical difficulties* metrics: date of service: 04/02/19 PASCUAL 1 month ago door:[id number] ts [id number], ts connected [id number] [facility] 2200
== END 2019-04-04 11:37 | disposition home or self-care (01) | DRG 93 ==
LOC: ED 16:30 → 4A 04-03 → OBSVTOIN 04-03
PROVIDERS: ADMIT Internal Medicine; ATTEND Hospitalist
DX: R20.0 Anesthesia of skin (principal); I10 Essential (primary) hypertension; E11.9 Type 2 diabetes mellitus without complications; K21.9 Gastro-esophageal reflux disease without esophagitis; M19.90 Unspecified osteoarthritis, unspecified site; Z85.528 Personal history of other malignant neoplasm of kidney; J45.909 Unspecified asthma, uncomplicated; Z90.5 Acquired absence of kidney; Z96.649 Presence of unspecified artificial hip joint; Z98.890 Other specified postprocedural states; Z79.899 Other long term (current) drug therapy; Z86.711 Personal history of pulmonary embolism
CPT/HCPCS: 36415; 70450; 70551; 72040; 74176; 80053; 81001; 82550; 82962; 83735; 85025; 93005; 93010; 93306; 93880; 94640; 96372; 96374; G0378; A9270-GY; J1815; J2765

== ENCOUNTER 2019-04-23 11:18 | Outpatient (CLI) | payer MEDICAID ==
--- NOTE | 2019-04-23 17:07 | Ultrasound Report ---
US renal BILAT INDICATION: Left flank pain. History of right nephrectomy. COMPARISON: CT of the abdomen and pelvis on 04/02/2019. FINDINGS: Right kidney: Previous right nephrectomy Left kidney: 12.4 cm in length. No significant abnormality. Urinary Bladder: No significant abnormality. Additional Findings: None. IMPRESSION: 1. No significant sonographic abnormality of the left kidney. 2. Previous right nephrectomy. Signer Name: Scott Bhatt MD Signed: 04/23/2019 5:02 PM Workstation Name: [id number]
== END 2019-04-23 11:19 | disposition home or self-care (01) ==
LOC: US 11:18
PROVIDERS: ATTEND Internal Medicine Hematology & Oncology
DX: C68.9 Malignant neoplasm of urinary organ, unspecified (principal); D64.9 Anemia, unspecified; R06.02 Shortness of breath; K21.9 Gastro-esophageal reflux disease without esophagitis; E78.00 Pure hypercholesterolemia, unspecified; I10 Essential (primary) hypertension; J45.909 Unspecified asthma, uncomplicated; E11.9 Type 2 diabetes mellitus without complications; Z90.5 Acquired absence of kidney
CPT/HCPCS: 76770

== ENCOUNTER 2020-08-11 07:44 | Outpatient (CLI) | payer MEDICAID ==
[2020-08-11 08:33] LABS: Blood Urea Nitrogen 12 mg/dL (7-17)
--- NOTE | 2020-08-11 09:47 | Cat Scan Report ---
CT CHEST WITH CONTRAST INDICATION / CLINICAL INFORMATION: MALIGNANT NEOPLASM OF URINARY ORGAN,UNSPECIFIED. TECHNIQUE: Axial CT images were obtained through the chest after 100 cc Omnipaque 300 milligrams percent IV cont rast. All CT scans at this location are performed using CT dose reduction for ALARA by means of autom ated exposure control. COMPARISON: Exam is compared to previous CT dated 04/10/2020 FINDINGS: HEART: No significant abnormality. THORACIC AORTA: No significant abnormality. MEDIASTINUM and LESLY: No significant abnormality. LUNGS: No acute air space or interstitial disease. The previous noted right upper lobe pulmonary nod ule is less apparent on today's exam. PLEURA: No significant pleural effusion. No pneumothorax. ADDITIONAL FINDINGS: None. UPPER ABDOMEN: Right nephrectomy SKELETAL SYSTEM: No significant abnormality. IMPRESSION: 1. No significant abnormality. Please see comments 2. Right nephrectomy 3. No evidence of metastatic renal cell carcinoma Signer Name: Cornelius Stein MD Signed: 08/11/2020 9:43 AM Workstation Name: [id number]
== END 2020-08-11 07:45 | disposition home or self-care (01) ==
LOC: CT 07:44
PROVIDERS: ATTEND Internal Medicine Hematology & Oncology
DX: C68.9 Malignant neoplasm of urinary organ, unspecified (principal); Z90.5 Acquired absence of kidney
CPT/HCPCS: 36415; 71260; 82565; 84520; Q9967

== ENCOUNTER 2020-08-29 05:41 | Emergency (ER) | payer MEDICAID ==
[2020-08-29] MEDS ORDERED: dexAMETHasone 20 MG/5 ML VIAL IM ONE (07:24)
[2020-08-29] MEDS ORDERED: oxyCODONE /ACETAMINOPHEN 5-325MG TAB PO ONE (07:24)
[2020-08-29] MEDS ORDERED: KETOROLAC 30 MG/1 ML INJ IM ONE (07:24)
--- NOTE | 2020-08-29 07:33 | Emergency Department Report ---
ED Back Pain/Injury HPI - General Chief Complaint: Back Pain/Injury Stated Complaint: LOWER BCK PAIN Time Seen by Provider: 08/29/20 07:11 Source: patient Limitations: No Limitations - History of Present Illness Initial Comments: 50 year female with a past medical history of chronic low back pain status post discectomy in 2006, hypertension, hyperlipidemia, asthma/COPD, depression and A. fib presents to the ER complaining of a flareup of her lower back pain. Patient states that in the past 6 days she has been having more severe lower back pain than typical. She denies any particular injury or strenuous activity. She states that the pain radiates down into her left lower leg, with burning sensation in her feet. Patient states that there is radiation of the pain into the leg and burning sensation is not any worse than typical. She reports urinary frequency, but denies any dysuria, hematuria, urinary retention, incontinence, or bowel incontinence. She states the pain is worse with any movements. 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 She does have a primary care doctor, Dr. Rudd, who she is scheduled to see September 05. She states that she used to be on morphine, and oxycodone for her pain, but since the pain management office close down she has not had any of her typical pain medication. She denies any fever, chills, chest pain, SOB, or abdominal pain. She denies any hx of AAA/dissection. MD Complaint: back pain -: Gradual Similar Symptoms Previously: Yes - Related Data Home Medications Medication Instructions Recorded Confirmed Last Taken Pregabalin [Lyrica] 300 mg PO BID 12/17/13 04/03/19 12/20/17 300 MG Diltiazem HCl [Cardizem LA] 360 mg PO DAILY 12/03/15 04/03/19 12/20/17 360 MG Mirtazapine [Remeron] 15 mg PO QHS 12/03/15 04/03/19 12/20/17 15 MG Losartan/Hydrochlorothiazide 1 tab PO DAILY 12/28/15 04/03/19 12/20/17 [Losartan-Hctz 100-12.5 mg Tab] Albuterol Sulfate [Proventil HFA] 2 puff INHALATION QDAY 08/19/16 04/03/19 12/20/17 Budesonide/Formoterol Fumarate 2 puff INHALATION Q12H 08/19/16 04/03/19 12/20/17 [Symbicort 160-4.5 Mcg Inhaler] SEROquel 300 mg PO HS 05/05/17 04/03/19 12/20/17 Previous Rx's Medication Instructions Recorded Last Taken Type Fluticasone [Flonase] 1 spray NS QDAY #1 bottle 11/13/18 Unknown Rx Apixaban [Eliquis] 10 mg PO Q12HR #7 tablet 04/04/19 Unknown Rx Aspirin EC [Halfprin EC] 81 mg PO QDAY #30 tablet 04/04/19 Unknown Rx cloNIDine [Catapres] 1 - 2 tab PO BID PRN #30 tablet 04/04/19 Unknown Rx Tramadol HCl/Acetaminophen 1 each PO Q4HR PRN #12 tablet 08/29/20 Unknown Rx [Ultracet Tablet] methOCARBAMOL [Robaxin TAB] 500 mg PO Q6H PRN #30 tablet 08/29/20 Unknown Rx methylPREDNISolone [Medrol 4MG 4 mg PO DAILY #1 tab.ds.pk 08/29/20 Unknown Rx DOSEPAK (21 tabs)] Allergies Allergy/AdvReac Type Severity Reaction Status Date / Time hydromorphone HCl Allergy Hives Verified 04/02/19 16:32 [From Dilaudid] tomato [Tomato] Allergy Hives Verified 04/02/19 16:32 ED Review of Systems ROS: Stated complaint: LOWER BCK PAIN Other details as noted in HPI Comment: All other systems reviewed and negative Constitutional: denies: chills, fever Respiratory: denies: cough, shortness of breath, wheezing Cardiovascular: denies: chest pain, palpitations Gastrointestinal: denies: abdominal pain, nausea, diarrhea Genitourinary: frequency Musculoskeletal: back pain Neurological: abnormal gait. denies: headache, weakness, paresthesias Psychiatric: denies: anxiety, depression ED Past Medical Hx - Past Medical History Hx Hypertension: Yes Hx Diabetes: Yes Hx Pulmonary Embolism: Yes Hx GERD: Yes Hx Liver Disease: No Hx Renal Disease: Yes (kidney cancer) Hx Arthritis: Yes Hx Seizures: No Hx Asthma: Yes Hx COPD: No Hx HIV: No Additional medical history: pneumonia, ulcers - Surgical History Additional Surgical History: 2 hip replacements, back surgery, right arm surgery / RIGHT NEPHRECTOMY - Social History Smoking Status: Current Every Day Smoker - Medications Home Medications: Home Medications Medication Instructions Recorded Confirmed Last Taken Type Pregabalin [Lyrica] 300 mg PO BID 12/17/13 04/03/19 12/20/17 History 300 MG Diltiazem HCl [Cardizem LA] 360 mg PO DAILY 12/03/15 04/03/19 12/20/17 History 360 MG Mirtazapine [Remeron] 15 mg PO QHS 12/03/15 04/03/19 12/20/17 History 15 MG Losartan/Hydrochlorothiazide 1 tab PO DAILY 12/28/15 04/03/19 12/20/17 History [Losartan-Hctz 100-12.5 mg Tab] Albuterol Sulfate [Proventil HFA] 2 puff INHALATION QDAY 08/19/16 04/03/19 12/20/17 History Budesonide/Formoterol Fumarate 2 puff INHALATION Q12H 08/19/16 04/03/19 12/20/17 History [Symbicort 160-4.5 Mcg Inhaler] SEROquel 300 mg PO HS 05/05/17 04/03/19 12/20/17 History Fluticasone [Flonase] 1 spray NS QDAY #1 bottle 11/13/18 04/03/19 Unknown Rx Apixaban [Eliquis] 10 mg PO Q12HR #7 tablet 04/04/19 Unknown Rx Aspirin EC [Halfprin EC] 81 mg PO QDAY #30 tablet 04/04/19 Unknown Rx cloNIDine [Catapres] 1 - 2 tab PO BID PRN #30 tablet 04/04/19 Unknown Rx Tramadol HCl/Acetaminophen 1 each PO Q4HR PRN #12 tablet 08/29/20 Unknown Rx [Ultracet Tablet] methOCARBAMOL [Robaxin TAB] 500 mg PO Q6H PRN #30 tablet 08/29/20 Unknown Rx methylPREDNISolone [Medrol 4MG 4 mg PO DAILY #1 tab.ds.pk 08/29/20 Unknown Rx DOSEPAK (21 tabs)] ED Physical Exam - General Limitations: No Limitations General appearance: alert, in no apparent distress - Head Head exam: Present: atraumatic, normocephalic - Eye Eye exam: Present: normal appearance - Respiratory Respiratory exam: Present: normal lung sounds bilaterally. Absent: respiratory distress - Cardiovascular Cardiovascular Exam: Present: regular rate, normal rhythm. Absent: systolic murmur, diastolic murmur, rubs, gallop - GI/Abdominal GI/Abdominal exam: Present: soft. Absent: distended, tenderness - Extremities Exam Extremities exam: Present: normal inspection, full ROM, normal capillary refill. Absent: pedal edema, calf tenderness - Back Exam Back exam: Present: normal inspection, paraspinal tenderness (left mid to upper lumbar), vertebral tenderness (Left mid upper lumbar), other (ROM of spine reduced moderately due to pain) - Neurological Exam Neurological exam: Present: alert, oriented X3, CN II-XII intact, normal gait, reflexes normal. Absent: motor sensory deficit - Psychiatric Psychiatric exam: Present: normal affect, normal mood - Skin Skin exam: Present: intact ED Course Vital Signs 08/29/20 08/29/20 08/29/20 06:09 08:48 08:49 Temperature 98.4 F Pulse Rate 116 H Respiratory 20 18 18 Rate Blood Pressure 141/92 O2 Sat by Pulse 98 Oximetry ED Medical Decision Making - Radiology Data Radiology results: report reviewed Referring Physician:JASPREET BAUTISTAPatient Name:MICHELLE VASQUEZPatient ID:[id number] of :[id number]:FemaleAccession:[id number] Date:[id number] Status:[place] [address] Cat Scan Report Signed Patient: MICHELLE VASQUEZ MR#: [id number] : 1970 Acct:[id number] Age/Sex: 50 / F ADM Date: 08/29/20 Loc: ED Attending Dr: Ordering Physician: JASPREET BAUTISTA Date of Service: 08/29/20 Procedure(s): CT lumbar spine wo con Accession Number(s): [id number] cc: JASPREET BAUTISTA CT LUMBAR SPINE WITHOUT CONTRAST INDICATION: Severe lower back pain. TECHNIQUE: Axial imaging performed through the lumbar spine without the use of contrast. Sagittal and coronal reconstructed images were also reviewed. All CT scans at this location are performed using CT dose reduction for ALARA by means of automated exposure control. COMPARISON: CT abdomen and pelvis 04/10/2020 FINDINGS: Alignment: Spinal alignment is normal. Bones: There is no acute osseous abnormality. Stable appearance of the posterior fusion changes with disc spacer placement at L5-S1. Decompressive laminectomy changes are noted at L5. There is moderate hypertrophic facet arthropathy at L4-5 and L5-S1 bilaterally resulting in mild to moderate bilateral neural foraminal narrowing. The remaining levels are within normal limits. Soft tissues: No acute or significant incidental soft tissue abnormality. IMPRESSION: No acute abnormality. Stable appearance of the L5-S1 posterior fusion changes and degenerative changes in the lower lumbar spine as described. Signer Name: Dalton Heredia Jr, MD Signed: 08/29/2020 8:21 AM Workstation Name: [id number] Transcribed By: TTR Dictated By: DALTON HEREDIA JR, MD Electronically Authenticated By: DALTON HEREDIA JR, MD Signed Date/Time: 08/29/20 0821 - Medical Decision Making 0838 The patient presented with back pain. The patient is resting comfortably and, is alert, talkative, interactive and in no distress. The exam is unremarkable and benign. The patient is neurologically intact and is ambulatory in the ED. The patient has no fever, no bowel or bladder incontinence, no saddle anesthesia and is otherwise well-appearing and alert. The history, physical examination, and diagnostic testing, do not suggest the presence of acute spinal epidural abscess, acute spinal epidural bleed, cauda equina syndrome, abdominal aortic aneurysm, aortic dissection, or other process requiring further testing, treatme nt or consultation in the emergency department. The vital signs have been stable. The patient's condition is stable and appropriate for discharge. The patient will pursue further outpatient evaluation with the primary care physician/explosive ordnance disposal specialist. Critical care attestation.: If time is entered above; I have spent that time in minutes in the direct care of this critically ill patient, excluding procedure time. ED Disposition Clinical Impression: Chronic low back pain Disposition: - TO HOME OR SELFCARE Is pt being admited?: No Does the pt Need Aspirin: No Condition: Stable Instructions: Chronic Back Pain, [id number] Additional Instructions: I recommend you keep your appointment with your PCP for september 05 for referral to another painting trades worker. You can also call your insurance company for referral to Pain management. Continue taking the lyrica as prescribed. Take the robaxin, medraol dose pain and ultracet as prescribed. Return to ED if your symptoms changes or worsens. Prescriptions: methylPREDNISolone [Medrol 4MG DOSEPAK (21 tabs)] 4 mg PO DAILY #1 tab.ds.pk methOCARBAMOL [Robaxin TAB] 500 mg PO Q6H PRN #30 tablet PRN Reason: Muscle spasm/PAin Tramadol HCl/Acetaminophen [Ultracet Tablet] 1 each PO Q4HR PRN #12 tablet PRN Reason: Pain , Severe (7-10) Referrals: PRIMARY CARE, [Primary Care Provider] - 3-5 Days Time of Disposition: 09:17
--- NOTE | 2020-08-29 08:25 | Cat Scan Report ---
CT LUMBAR SPINE WITHOUT CONTRAST INDICATION: Severe lower back pain. TECHNIQUE: Axial imaging performed through the lumbar spine without the use of contrast. Sagittal a nd coronal reconstructed images were also reviewed. All CT scans at this location are performed usin g CT dose reduction for ALARA by means of automated exposure control. COMPARISON: CT abdomen and pelvis 04/10/2020 FINDINGS: Alignment: Spinal alignment is normal. Bones: There is no acute osseous abnormality. Stable appearance of the posterior fusion changes wit h disc spacer placement at L5-S1. Decompressive laminectomy changes are noted at L5. There is moderat e hypertrophic facet arthropathy at L4-5 and L5-S1 bilaterally resulting in mild to moderate bilatera l neural foraminal narrowing. The remaining levels are within normal limits. Soft tissues: No acute or significant incidental soft tissue abnormality. IMPRESSION: No acute abnormality. Stable appearance of the L5-S1 posterior fusion changes and degene rative changes in the lower lumbar spine as described. Signer Name: Dalton Heredia Jr, MD Signed: 08/29/2020 8:21 AM Workstation Name: [id number]
[2020-08-29 09:07] LABS: Bacteria,Urine 1+ /HPF (Negative); Bilirubin,Urine NEG (Negative); Blood,Urine MOD (Negative); Color,Urine Straw (Yellow); Mucus,Urine FEW /HPF; Urobilinogen,Urine < 2.0 mg/dL (<2.0)
[2020-08-29 10:34] VITALS: BP 167/90
== END 2020-08-29 09:58 | disposition home or self-care (01) ==
LOC: ED 05:41
DX: M54.5 Low back pain (principal); G89.29 Other chronic pain; F32.9 Major depressive disorder, single episode, unspecified; I48.91 Unspecified atrial fibrillation; J44.9 Chronic obstructive pulmonary disease, unspecified; I10 Essential (primary) hypertension; E78.5 Hyperlipidemia, unspecified; E11.9 Type 2 diabetes mellitus without complications; K21.9 Gastro-esophageal reflux disease without esophagitis; M19.90 Unspecified osteoarthritis, unspecified site; F17.200 Nicotine dependence, unspecified, uncomplicated; Z79.899 Other long term (current) drug therapy; Z88.8 Allergy status to other drugs, medicaments and biological substances; Z91.018 Allergy to other foods; Z98.890 Other specified postprocedural states
CPT/HCPCS: 72131; 81001; 96372; 99284; J1100; J1885

== ENCOUNTER 2020-08-30 11:03 | Inpatient (IN) | payer MEDICAID ==
[2020-08-30] MEDS ORDERED: SODIUM CHLORIDE 0.9% 1000 ML 2,000 ML IV ONE (11:21)
--- NOTE | 2020-08-30 11:29 | Event Note ---
ED Screening Note Date of service: 08/30/20 Time: : ED Screening Note: 50-year-old -[place] female with a history of IDD M presents to the emergency room for shortness of breath and elevated blood pressure. Patient was seen here yesterday and was placed on tramadol Medrol Dosepak and ibuprofen. Patient admits to increased urination. This initial assessment/diagnostic orders/clinical plan/treatment(s) is/are subject to change based on patients health status, clinical progression and re- assessment by fellow clinical providers in the ED. Further treatment and workup at subsequent clinical providers discretion. Patient/guardian urged not to elope from the ED as their condition may be serious if not clinically assessed and managed. Initial orders include:
[2020-08-30] MEDS ORDERED: INSULIN REGULAR, HUMAN 100 UNIT/ML 3ML VIAL IV ONE (11:37)
[2020-08-30] MEDS ORDERED: ONDANSETRON 4 MG/2 ML INJ IV ONE (11:40)
--- NOTE | 2020-08-30 11:42 | Emergency Department Report ---
ED General Adult HPI - General Chief complaint: Hyperglycemia Stated complaint: HIGH SUGAR/CHEST PAIN/VOMITING Time Seen by Provider: 08/30/20 11:19 Source: patient Mode of arrival: Ambulatory Limitations: No Limitations - History of Present Illness Initial comments: Patient is 50 years old female with history of diabetes and COPD. Patient presented to the ER complaining of generalized weakness, nausea, vomiting, back pain and urinary frequency for the last few days. Patient found to have a blood glucose of more than 600. Patient also reported cough but no fever or chills. Patient denied any chest pain or shortness of breath. -: days(s) (5) - Related Data Home Medications Medication Instructions Recorded Confirmed Last Taken Pregabalin [Lyrica] 300 mg PO BID 12/17/13 04/03/19 12/20/17 300 MG Diltiazem HCl [Cardizem LA] 360 mg PO DAILY 12/03/15 04/03/19 12/20/17 360 MG Mirtazapine [Remeron] 15 mg PO QHS 12/03/15 04/03/19 12/20/17 15 MG Losartan/Hydrochlorothiazide 1 tab PO DAILY 12/28/15 04/03/19 12/20/17 [Losartan-Hctz 100-12.5 mg Tab] Albuterol Sulfate [Proventil HFA] 2 puff INHALATION QDAY 08/19/16 04/03/19 12/20/17 Budesonide/Formoterol Fumarate 2 puff INHALATION Q12H 08/19/16 04/03/19 12/20/17 [Symbicort 160-4.5 Mcg Inhaler] SEROquel 300 mg PO HS 05/05/17 04/03/19 12/20/17 Previous Rx's Medication Instructions Recorded Last Taken Type Fluticasone [Flonase] 1 spray NS QDAY #1 bottle 11/13/18 Unknown Rx Apixaban [Eliquis] 10 mg PO Q12HR #7 tablet 04/04/19 Unknown Rx Aspirin EC [Halfprin EC] 81 mg PO QDAY #30 tablet 04/04/19 Unknown Rx cloNIDine [Catapres] 1 - 2 tab PO BID PRN #30 tablet 04/04/19 Unknown Rx Tramadol HCl/Acetaminophen 1 each PO Q4HR PRN #12 tablet 08/29/20 Unknown Rx [Ultracet Tablet] methOCARBAMOL [Robaxin TAB] 500 mg PO Q6H PRN #30 tablet 08/29/20 Unknown Rx methylPREDNISolone [Medrol 4MG 4 mg PO DAILY #1 tab.ds.pk 08/29/20 Unknown Rx DOSEPAK (21 tabs)] Allergies Allergy/AdvReac Type Severity Reaction Status Date / Time hydromorphone HCl Allergy Hives Verified 04/02/19 16:32 [From Dilaudid] tomato [Tomato] Allergy Hives Verified 04/02/19 16:32 ED Review of Systems ROS: Stated complaint: HIGH SUGAR/CHEST PAIN/VOMITING Other details as noted in HPI Comment: All other systems reviewed and negative Constitutional: denies: chills, fever Respiratory: cough. denies: orthopnea, shortness of breath, SOB with exertion, SOB at rest, wheezing Cardiovascular: palpitations. denies: chest pain Gastrointestinal: nausea, vomiting. denies: abdominal pain, diarrhea, constipation, hematemesis, melena, hematochezia Genitourinary: urgency, frequency Musculoskeletal: back pain Neurological: weakness. denies: headache, numbness, paresthesias, confusion, abnormal gait ED Past Medical Hx - Past Medical History Hx Hypertension: Yes Hx Diabetes: Yes Hx Pulmonary Embolism: Yes Hx GERD: Yes Hx Liver Disease: No Hx Renal Disease: Yes (kidney cancer) Hx Arthritis: Yes Hx Seizures: No Hx Asthma: Yes Hx COPD: No Hx HIV: No Additional medical history: pneumonia, ulcers - Surgical History Additional Surgical History: 2 hip replacements, back surgery, right arm surgery / RIGHT NEPHRECTOMY - Social History Smoking Status: Current Every Day Smoker Substance Use Type: Alcohol - Medications Home Medications: Home Medications Medication Instructions Recorded Confirmed Last Taken Type Pregabalin [Lyrica] 300 mg PO BID 12/17/13 04/03/19 12/20/17 History 300 MG Diltiazem HCl [Cardizem LA] 360 mg PO DAILY 12/03/15 04/03/19 12/20/17 History 360 MG Mirtazapine [Remeron] 15 mg PO QHS 12/03/15 04/03/19 12/20/17 History 15 MG Losartan/Hydrochlorothiazide 1 tab PO DAILY 12/28/15 04/03/19 12/20/17 History [Losartan-Hctz 100-12.5 mg Tab] Albuterol Sulfate [Proventil HFA] 2 puff INHALATION QDAY 08/19/16 04/03/19 12/20/17 History Budesonide/Formoterol Fumarate 2 puff INHALATION Q12H 08/19/16 04/03/19 12/20/17 History [Symbicort 160-4.5 Mcg Inhaler] SEROquel 300 mg PO HS 05/05/17 04/03/19 12/20/17 History Fluticasone [Flonase] 1 spray NS QDAY #1 bottle 11/13/18 04/03/19 Unknown Rx Apixaban [Eliquis] 10 mg PO Q12HR #7 tablet 04/04/19 Unknown Rx Aspirin EC [Halfprin EC] 81 mg PO QDAY #30 tablet 04/04/19 Unknown Rx cloNIDine [Catapres] 1 - 2 tab PO BID PRN #30 tablet 04/04/19 Unknown Rx Tramadol HCl/Acetaminophen 1 each PO Q4HR PRN #12 tablet 08/29/20 Unknown Rx [Ultracet Tablet] methOCARBAMOL [Robaxin TAB] 500 mg PO Q6H PRN #30 tablet 08/29/20 Unknown Rx methylPREDNISolone [Medrol 4MG 4 mg PO DAILY #1 tab.ds.pk 08/29/20 Unknown Rx DOSEPAK (21 tabs)] ED Physical Exam - General Limitations: No Limitations General appearance: alert, in no apparent distress - Head Head exam: Present: atraumatic, normocephalic, normal inspection - ENT ENT exam: Present: mucous membranes dry - Neck Neck exam: Present: normal inspection, full ROM. Absent: tenderness, meningismus, lymphadenopathy, thyromegaly - Respiratory Respiratory exam: Present: normal lung sounds bilaterally - Cardiovascular Cardiovascular Exam: Present: tachycardia. Absent: systolic murmur, diastolic murmur - GI/Abdominal GI/Abdominal exam: Present: soft, normal bowel sounds. Absent: distended, t enderness, guarding, rebound, rigid, organomegaly, mass, bruit, pulsatile mass, hernia - Extremities Exam Extremities exam: Present: normal inspection, full ROM, normal capillary refill. Absent: pedal edema, calf tenderness - Back Exam Back exam: Present: normal inspection, full ROM. Absent: CVA tenderness (R), CVA tenderness (L) - Neurological Exam Neurological exam: Present: alert, oriented X3, CN II-XII intact, normal gait, reflexes normal. Absent: motor sensory deficit - Psychiatric Psychiatric exam: Present: normal mood - Skin Skin exam: Present: warm, intact, normal color ED Course Vital Signs 08/30/20 08/30/20 11:07 12:45 Temperature 97.5 F L Pulse Rate 121 H 100 H Respiratory 18 18 Rate Blood Pressure 138/92 O2 Sat by Pulse 97 97 Oximetry - Consultations Consultation #1: 08/30/20 14:00 I discussed the patient with Dr. Galvez, he agreed to admit the patient to ICU for further management. ED Medical Decision Making - Lab Data Result diagrams: 08/30/20 11:49 08/30/20 11:53 - Radiology Data Radiology results: report reviewed - Medical Decision Making Patient is 50 years old female with history of diabetes and COPD. Patient presented to the ER complaining of generalized weakness, nausea, vomiting, back pain and urinary frequency for the last few days. Patient found to have a blood glucose of more than 600. Patient also reported cough but no fever or chills. Patient denied any chest pain or shortness of breath. Patient found to be in a DKA with a blood sugar of 827 with anion gap of 30. Patient started on normal saline and started on insulin drip. Labs also showed hyponatremia with sodium of 122. I discussed the patient with Dr. Thomas, he agreed to admit the patient to the hospital for further management. Critical Care Time: Yes Critical care time in (mins) excluding proc time.: 30 Critical care attestation.: If time is entered above; I have spent that time in minutes in the direct care of this critically ill patient, excluding procedure time. ED Disposition Clinical Impression: DKA (diabetic ketoacidoses), Acute hyponatremia, Acute hyperkalemia Disposition: OP ADMIT IP TO THIS HOSP Is pt being admited?: Yes Condition: Stable Instructions: Diabetic Ketoacidosis (ED) Referrals: PRIMARY CARE, [Primary Care Provider] - 3-5 Days
--- NOTE | 2020-08-30 11:58 | XRay Report ---
CHEST 1 VIEW 08/30/2020 11:49 AM INDICATION / CLINICAL INFORMATION: cough. COMPARISON: 04/10/2020 CT FINDINGS: SUPPORT DEVICES: Right IJ port appears appropriately position. HEART / MEDIASTINUM: No significant abnormality. LUNGS / PLEURA: No significant pulmonary or pleural abnormality. No pneumothorax. ADDITIONAL FINDINGS: No significant additional findings. IMPRESSION: 1. No acute findings. Signer Name: Scott Bhatt MD Signed: 08/30/2020 11:53 AM Workstation Name: [id number]
[2020-08-30 12:19] LABS: Basophils % (Auto) 0.2 % (0.0-1.8); Hematocrit 44.3 % (30.3-42.9); Hemoglobin 14.4 gm/dl (10.1-14.3); Lymphocytes # (Auto) 1.1 K/mm3 (1.2-5.4); Lymphocytes % (Auto) 11.2 % (13.4-35.0); Mean Corpuscular HGB Conc 32 % (30-34); Mean Corpuscular Volume 94 fl (79-97); Monocytes # (Auto) 0.6 K/mm3 (0.0-0.8); Monocytes % (Auto) 6.2 % (0.0-7.3); Platelet Count 328 K/mm3 (140-440); Red Cell Distribution Width 14.3 % (13.2-15.2)
[2020-08-30 12:34] LABS: Alanine Aminotransferase 21 units/L (7-56); Albumin 4.9 g/dL (3.9-5); BUN/Creatinine Ratio 23; Blood Urea Nitrogen 34 mg/dL (7-17); Calcium 10.6 mg/dL (8.4-10.2); Hemolysis Index 53
[2020-08-30 12:37] LABS: Bilirubin,Direct < 0.2 mg/dL (0-0.2)
[2020-08-30] MEDS ORDERED: TRAMADOL HCL PO PRN (13:31)
[2020-08-30] MEDS ORDERED: ACETAMINOPHEN PO PRN (13:31)
--- NOTE | 2020-08-30 13:33 | History and Physical Report ---
History of Present Illness Chief complaint: I am very weak and I feel sick History of present illness: 50 YO Female with DM, HTN, COPD, GERD, Obesity Hypoventilation Syndrome, PE on Therapeutic Anticoagulation, Nicotine Dependence presents to ED for evaluation. Patient states that she has been "feeling sick" over the past 3 days with persistently worsening symptoms over the past 1 day. Patient acknowledges generalized weakness, nausea, multiple episodes of vomiting, polydipsia, urgency, frequency. Patient was found to have an elevated serum glucose at her home. Patient transported to [facility] via private vehicle for further care and evaluation. Patient seen and evaluated in the emergency department. All lab a nd imaging studies reviewed. Patient found to have a serum glucose of more than 600 as well as clinical symptoms consistent with diabetic ketoacidosis, metabolic acidosis, as well as acute kidney injury. Patient initiated on DKA protocol and admitted to ICU due to increased risk of multisystem dec ompensation. Patient denies fever,Chills, chest pain, palpitations, productive cough, skin rash, recent ill contacts, or known exposure to COVID-19. Prior admission on 04/03/2019 reviewed. All medication listed at time of admission has been reconciled. Past History Past Medical History: COPD, diabetes, GERD, hypertension, pulmonary embolism, other (see hpi) Past Surgical History: total hip replacement, Other ( 2 hip replacements, back surgery, right arm surgery / RIGHT NEPHRECTOMY) Social history: single, smoking Family history: diabetes, hypertension Medications and Allergies Allergies Allergy/AdvReac Type Severity Reaction Status Date / Time hydromorphone HCl Allergy Hives Verified 04/02/19 16:32 [From Dilaudid] tomato [Tomato] Allergy Hives Verified 04/02/19 16:32 Home Medications Medication Instructions Recorded Confirmed Last Taken Type Pregabalin [Lyrica] 300 mg PO BID 12/17/13 04/03/19 12/20/17 History 300 MG Diltiazem HCl [Cardizem LA] 360 mg PO DAILY 12/03/15 04/03/19 12/20/17 History 360 MG Mirtazapine [Remeron] 15 mg PO QHS 12/03/15 04/03/19 12/20/17 History 15 MG Losartan/Hydrochlorothiazide 1 tab PO DAILY 12/28/15 04/03/19 12/20/17 History [Losartan-Hctz 100-12.5 mg Tab] Albuterol Sulfate [Proventil HFA] 2 puff INHALATION QDAY 08/19/16 04/03/19 12/20/17 History Budesonide/Formoterol Fumarate 2 puff INHALATION Q12H 08/19/16 04/03/19 12/20/17 History [Symbicort 160-4.5 Mcg Inhaler] SEROquel 300 mg PO HS 05/05/17 04/03/19 12/20/17 History Fluticasone [Flonase] 1 spray NS QDAY #1 bottle 11/13/18 04/03/19 Unknown Rx Apixaban [Eliquis] 10 mg PO Q12HR #7 tablet 04/04/19 Unknown Rx Aspirin EC [Halfprin EC] 81 mg PO QDAY #30 tablet 04/04/19 Unknown Rx cloNIDine [Catapres] 1 - 2 tab PO BID PRN #30 tablet 04/04/19 Unknown Rx Tramadol HCl/Acetaminophen 1 each PO Q4HR PRN #12 tablet 08/29/20 Unknown Rx [Ultracet Tablet] methOCARBAMOL [Robaxin TAB] 500 mg PO Q6H PRN #30 tablet 08/29/20 Unknown Rx methylPREDNISolone [Medrol 4MG 4 mg PO DAILY #1 tab.ds.pk 08/29/20 Unknown Rx DOSEPAK (21 tabs)] Active Meds: Active Medications Insulin Human Regular 100 (units/ Sodium Chloride) 100 mls @ 1 mls/hr IV TITR RADHA; Protocol Sodium Chloride (Sodium Chloride Flush Syringe 10 Ml) 10 ml IV BID RADHA Sodium Chloride (Sodium Chloride Flush Syringe 10 Ml) 10 ml IV PRN PRN PRN Reason: LINE FLUSH Review of Systems Constitutional: weakness, no weight loss, no weight gain, no fever, no chills Ears, nose, mouth and throat: no ear pain, no ear discharge, no tinnitis, no decreased hearing, no nose pain Breasts: no change in shape, no swelling Cardiovascular: no chest pain, no orthopnea, no palpitations, no edema, no syncope Respiratory: no cough, no cough with sputum, no hemoptysis, no shortness of breath Gastrointestinal: nausea, vomiting, no abdominal pain, no diarrhea, no constipation Genitourinary Female: no pelvic pain, no menorrhagia, no dysuria, no urgency, no stress incontinence, no post void dribbling, no incomplete emptying Rectal: no pain, no incontinence, no bleeding Musculoskeletal: no neck stiffness, no neck pain, no shooting arm pain, no arm numbness/tingling, no low back pain, no shooting leg pain, no leg numbness/tingling Integumentary: no rash, no pruritis, no sores, no jaundice Neurological: no transient paralysis, no paralysis, no tingling, no syncope, no ataxia Psychiatric: no anxiety, no memory loss, no sleep disturbances, no change in appetite Endocrine: excessive thirst, polydipsia, polyuria, high blood sugars, no cold intolerance, no proptosis, no palpatations, no low blood sugars, no recent glucocorticoid use Hematologic/Lymphatic: no easy bruising, no easy bleeding, no lymphedema Allergic/Immunologic: no allergic rhinitis, no wheezing, no anaphylaxis Exam - Constitutional Vitals: Temp Pulse Resp BP Pulse Ox 97.5 F L 100 H 18 138/92 97 08/30/20 11:07 08/30/20 12:45 08/30/20 12:45 08/30/20 11:07 08/30/20 12:45 General appearance: Present: mild distress - EENT Eyes: Present: PERRL ENT: hearing intact, clear oral mucosa, other (Oral mucosa dry) - Neck Neck: Present: supple, normal ROM - Respiratory Respiratory effort: normal Respiratory: bilateral: CTA - Cardiovascular Rhythm: other (Tachycardia) Heart Sounds: Present: S1 & S2. Absent: rub, click - Extremities Extremities: pulses symmetrical, No edema Peripheral Pulses: within normal limits - Abdominal General gastrointestinal: Present: soft, non-tender, non-distended, normal bowel sounds Female genitourinary: Present: normal - Integumentary Integumentary: Present: clear, warm, dry - Musculoskeletal Musculoskeletal: gait normal, strength equal bilaterally - Psychiatric Psychiatric: appropriate mood/affect, intact judgment & insight - Neurologic Neurologic: CNII-XII intact, moves all extremities HEART Score - HEART Score Troponin: Troponin T < 0.010 ng/mL (0.00-0.029) 08/30/20 11:53 Results - Labs CBC & Chem 7: 08/30/20 11:49 08/30/20 20:15 Labs: Abnormal lab results 08/30/20 08/30/20 08/30/20 Range/Units 11:11 11:49 11:49 Hgb 14.4 H (10.1-14.3) gm/dl Hct 44.3 H (30.3-42.9) % Lymph % (Auto) 11.2 L (13.4-35.0) % Lymph # (Auto) 1.1 L (1.2-5.4) K/mm3 Seg Neutrophils % 82.4 H (40.0-70.0) % Seg Neutrophils # 8.5 H (1.8-7.7) K/mm3 VBG pH 7.208 L (7.320-7.420) Sodium (137-145) mmol/L Potassium (3.6-5.0) mmol/L Chloride (98-107) mmol/L Carbon Dioxide (22-30) mmol/L BUN (7-17) mg/dL Creatinine (0.6-1.2) mg/dL Glucose (65-100) mg/dL POC Glucose > 600 H (70-105) mg/dL Calcium (8.4-10.2) mg/dL Alkaline Phosphatase (35-129) units/L Total Protein (6.3-8.2) g/dL 08/30/20 Range/Units 11:53 Hgb (10.1-14.3) gm/dl Hct (30.3-42.9) % Lymph % (Auto) (13.4-35.0) % Lymph # (Auto) (1.2-5.4) K/mm3 Seg Neutrophils % (40.0-70.0) % Seg Neutrophils # (1.8-7.7) K/mm3 VBG pH (7.320-7.420) Sodium 122 L (137-145) mmol/L Potassium 5.8 H (3.6-5.0) mmol/L Chloride 84.2 L (98-107) mmol/L Carbon Dioxide 14 L (22-30) mmol/L BUN 34 H (7-17) mg/dL Creatinine 1.5 H (0.6-1.2) mg/dL Glucose 867 H* (65-100) mg/dL POC Glucose (70-105) mg/dL Calcium 10.6 H (8.4-10.2) mg/dL Alkaline Phosphatase 192 H (35-129) units/L Total Protein 9.2 H (6.3-8.2) g/dL Assessment and Plan - Patient Problems (1) DKA (diabetic ketoacidoses) Current Visit: Yes Status: Acute Qualifiers: Diabetes mellitus type: type 1 Plan to address problem: DKA protocol: Admit to ICU, IV fluid resuscitation therapy, serial BMP, monitor anion gap, insulin drip, monitor serum potassium, replete as per protocol, The high probability of a clinically significant, sudden or life threatening d eterioration of the [neuro, endocrine, renal] system(s) required my full and direct attention, intervention and personal management. The aggregate critical care time was [65] minutes. This time is in addition to time spent performing reported procedures but includes the following: [x] Data Review and interpretation [x] Patient assessment and monitoring of vital signs [x] Documentation [x] Medication orders and management (2) Metabolic acidosis Current Visit: Yes Status: Acute Plan to address problem: IV fluid resuscitation therapy, treat diabetic ketoacidosis, BMP, repeat BMP in a.m., (3) Acute kidney injury Current Visit: Yes Status: Acute Plan to address problem: IV fluid resuscitation therapy, BMP, repeat BMP in a.m. to monitor serum creatinine. (4) Volume depletion Current Visit: Yes Status: Acute Plan to address problem: IV fluid resuscitation therapy, monitor urine output every shift, supportive care. (5) DVT prophylaxis Current Visit: Yes Status: Acute Plan to address problem: SCD to bilateral lower extremities while in bed, patient is ambulatory
[2020-08-30] MEDS ORDERED: NON-FORMULARY EACH (Budesonide/Formoterol Fumarate [Symbicort 160-4.5 Mcg Inhaler] 2 PUFF) INHALATION SCH (13:45)
[2020-08-30 14:08] LABS: Calcium 10.2 mg/dL (8.4-10.2)
[2020-08-30] MEDS: INSULIN REGULAR, HUMAN 100 UNITS in SODIUM CHLORIDE 0.9% 99 ML IV SCH (14:18)
[2020-08-30] MEDS ORDERED: traMADol 50 MG TAB PO PRN (14:24)
[2020-08-30 17:38] LABS: Calcium 10.1 mg/dL (8.4-10.2)
[2020-08-30 19:02] LABS: Bacteria,Urine 1+ /HPF (Negative); Bilirubin,Urine NEG (Negative); Blood,Urine MOD (Negative); Color,Urine Straw (Yellow); Mucus,Urine FEW /HPF; Urobilinogen,Urine < 2.0 mg/dL (<2.0)
[2020-08-30 19:35] LABS: BUN/Creatinine Ratio 26; Blood Urea Nitrogen 29 mg/dL (7-17); Hemolysis Index 7
[2020-08-30] MEDS ORDERED: D5W/0.45% NACL/KCL 20 MEQ 20 MEQ/1,000 ML BAG IV ONE (20:11)
[2020-08-30] MEDS: D5W/0.45% NACL/KCL 20 MEQ 20 MEQ/1,000 ML BAG IV SCH (20:23)
[2020-08-30 20:41] LABS: BUN/Creatinine Ratio 29; Blood Urea Nitrogen 29 mg/dL (7-17); Calcium 9.9 mg/dL (8.4-10.2); Hemolysis Index 17
[2020-08-30] MEDS ORDERED: D5W/0.45% NACL/KCL 20 MEQ 20 MEQ/1,000 ML BAG IV SCH (21:00)
[2020-08-30] MEDS ORDERED: ARFORMOTEROL 15 MCG/2 ML NEBU IH ONE (21:34)
[2020-08-30] MEDS ORDERED: BUDESONIDE 0.5 MG/2 ML NEBU IH ONE (21:34)
[2020-08-30] MEDS: ARFORMOTEROL 15 MCG/2 ML NEBU IH SCH (21:37)
[2020-08-30] MEDS: BUDESONIDE 0.5 MG/2 ML NEBU IH SCH (21:37)
[2020-08-30] MEDS ORDERED: QUEtiapine 100 MG TAB PO SCH (22:00)
[2020-08-30] MEDS ORDERED: NON-FORMULARY EACH (Pregabalin [Lyrica] 300 MG) PO SCH (22:00)
[2020-08-30] MEDS ORDERED: APIXABAN 5 MG TAB PO SCH (22:00)
[2020-08-30] MEDS ORDERED: NON-FORMULARY EACH (Seroquel 300 MG) PO SCH (22:00)
[2020-08-30] MEDS ORDERED: QUEtiapine 100 MG TAB ONE (22:23)
[2020-08-30] MEDS ORDERED: MIRTAZAPINE 15 MG TAB ONE (22:23)
[2020-08-30] MEDS ORDERED: APIXABAN 5 MG TAB ONE (22:23)
[2020-08-30] MEDS ORDERED: PREGABALIN 75 MG CAP ONE (22:24)
[2020-08-30] MEDS: MIRTAZAPINE 15 MG TAB PO SCH ×2 (22:28→22:47)
[2020-08-30] MEDS: PREGABALIN 75 MG CAP PO SCH (22:28)
[2020-08-31] MEDS: INSULIN REGULAR, HUMAN 100 UNITS in SODIUM CHLORIDE 0.9% 99 ML IV SCH (00:20)
[2020-08-31] MEDS ORDERED: D5W/0.45% NACL/KCL 20 MEQ 20 MEQ/1,000 ML BAG IV ONE (04:18)
[2020-08-31] MEDS: D5W/0.45% NACL/KCL 20 MEQ 20 MEQ/1,000 ML BAG IV SCH ×2 (04:26→13:37)
[2020-08-31 05:19] LABS: BUN/Creatinine Ratio 28; Blood Urea Nitrogen 25 mg/dL (7-17); Calcium 9.7 mg/dL (8.4-10.2); Hemolysis Index 4
[2020-08-31] MEDS ORDERED: dilTIAZem CD 180 MG CAP PO SCH (10:00)
[2020-08-31] MEDS ORDERED: hydroCHLOROthiazide 12.5 MG CAP PO SCH (10:00)
[2020-08-31] MEDS ORDERED: ASPIRIN EC 81 MG TAB PO SCH (10:00)
[2020-08-31] MEDS ORDERED: LOSARTAN PO SCH (10:00)
[2020-08-31] MEDS ORDERED: LOSARTAN 50 MG TAB PO SCH (10:00)
[2020-08-31] MEDS ORDERED: DILTIAZEM HCL 360 MG PO SCH (10:00)
[2020-08-31] MEDS ORDERED: APIXABAN 5 MG TAB PO SCH (10:00)
[2020-08-31] MEDS ORDERED: HYDROCHLOROTHIAZIDE PO SCH (10:00)
[2020-08-31] MEDS: BUDESONIDE 0.5 MG/2 ML NEBU IH SCH (11:15)
[2020-08-31] MEDS: ARFORMOTEROL 15 MCG/2 ML NEBU IH SCH (11:15)
[2020-08-31 13:17] LABS: BUN/Creatinine Ratio 23; Blood Urea Nitrogen 23 mg/dL (7-17); Calcium 9.6 mg/dL (8.4-10.2); Hemolysis Index 35
[2020-08-31] MEDS: INSULIN LISPRO 100 UNIT/ML VIAL 3 mL SUB-Q SCH ×2 (13:37→15:48)
[2020-08-31] MEDS: PREGABALIN 75 MG CAP PO SCH (14:03)
--- NOTE | 2020-08-31 16:36 | Discharge Summary ---
Providers - Providers Date of Admission: 08/30/20 13:29 Attending physician: AMANDA KEN 08/30/20 12:57 Consult to Physician [CONS] Stat Comment: Consulting Provider: ANTIONETTE ANDRE Physician Instructions: Reason For Exam: DKA Primary care physician: COTTON CLASSER Hospitalization Condition: Stable Disposition: DC-30 STILL A PATIENT - Discharge Diagnoses (1) DKA (diabetic ketoacidoses) Status: Acute Qualifiers: Diabetes mellitus type: type 1 (2) Metabolic acidosis Status: Acute (3) Acute kidney injury Status: Acute (4) Volume depletion Status: Acute (5) DVT prophylaxis Status: Acute Exam - Constitutional Vitals: Temp Pulse Resp BP Pulse Ox 98.2 F 87 20 151/76 99 08/31/20 10:10 08/31/20 10:10 08/31/20 10:10 08/31/20 10:10 08/31/20 10:10 Plan Follow up with: PRIMARY MD FANNY [Primary Care Provider] - 3-5 Days
[2020-08-31 17:00] VITALS: BP 109/62
== END 2020-08-31 18:30 | disposition home or self-care (01) | DRG 637 ==
LOC: ED 11:03 → CC1 13:29 → 3A 08-31 08:32
PROVIDERS: ADMIT Internal Medicine; ATTEND Internal Medicine
DX: E10.10 Type 1 diabetes mellitus with ketoacidosis without coma (principal); N17.0 Acute kidney failure with tubular necrosis; E87.1 Hypo-osmolality and hyponatremia; E66.2 Morbid (severe) obesity with alveolar hypoventilation; E87.5 Hyperkalemia; J44.9 Chronic obstructive pulmonary disease, unspecified; Z88.8 Allergy status to other drugs, medicaments and biological substances; Z91.018 Allergy to other foods; I10 Essential (primary) hypertension; K21.9 Gastro-esophageal reflux disease without esophagitis; Z86.711 Personal history of pulmonary embolism; Z79.01 Long term (current) use of anticoagulants; J45.909 Unspecified asthma, uncomplicated; M19.90 Unspecified osteoarthritis, unspecified site; Z68.36 Body mass index [BMI] 36.0-36.9, adult; F17.200 Nicotine dependence, unspecified, uncomplicated; Z82.49 Family history of ischemic heart disease and other diseases of the circulatory system; Z83.3 Family history of diabetes mellitus; Z79.82 Long term (current) use of aspirin; Z79.4 Long term (current) use of insulin; E86.9 Volume depletion, unspecified
CPT/HCPCS: 36415; 71045; 80048; 80076; 81001; 82140; 82805; 82962; 83690; 83735; 84100; 84484; 85025; 93005; 94640; 96365; 96367; 96375; G0378; J1815

== ENCOUNTER 2020-11-22 08:09 | Outpatient (CLI) | payer MEDICAID ==
--- NOTE | 2020-11-22 10:36 | Magnetic Resonance Report ---
MR lumbar spine wo con INDICATION / CLINICAL INFORMATION: Severe low back pain. Degenerative disc disease. Prior surgery. TECHNIQUE: Multisequence, multiplanar images of the lumbar spine were obtained. COMPARISON: CT lumbar spine 08/29/2020 FINDINGS: NOMENCLATURE: For the purposes of this report, L5-S1 is defined as axial image 40 of series 8. ALIGNMENT: Normal alignment. VERTEBRAE:No aggressive osseous marrow signal. Vertebral body heights are preserved. VISUALIZED SPINAL CORD: The conus appears within normal limits. [id number] ANALYSIS: L1-2: No significant spinal canal stenosis. No significant foraminal narrowing. L2-3: No significant spinal canal stenosis. No significant foraminal narrowing. L3-4: No significant spinal canal stenosis. No significant foraminal narrowing. L4-5: No significant spinal canal stenosis. No significant foraminal narrowing. L5-S1: Similar to the prior examination there are postoperative changes from L5-S1 posterior spinal a nd interbody fusion with L5 laminectomy. Thecal sac is decompressed. Unchanged subsidence of the inte rbody device without surrounding osseous edema. Neuroforamina are unchanged. PARASPINAL SOFT TISSUES: No significant abnormality. ADDITIONAL FINDINGS: None. IMPRESSION: Unchanged postoperative changes of L5-S1. No significant superior junctional spondylosis. No signific ant spinal canal, lateral recess, or foraminal narrowing at any level. Definitions used for the purposes of this report: Lumbar canal stenosis (Rosa Elena et al. Br J Radiol. 2012;86(5377):[id number]): No stenosis: No attenuation of the CSF spaces Mild stenosis: Anterior CSF space mildly obliterated Moderate stenosis: Anterior CSF space is moderately obliterated; cauda equina partially aggregated Severe stenosis: Marked compression of the dural sac; cauda equina cannot be visually and a ppear as a bundle Lumbar lateral recess stenosis (Sonja et al. World J Radiol. 2017 March 02;9(5):223-229): No stenosis: Nerve root is bathed in fluid Mild stenosis: Narrowing of the lateral recess without root deviation Moderate stenosis: Narrowing of the recess with nerve root deviation Severe stenosis: Compression of the nerve root Lumbar neural foraminal stenosis (Nagi et al. AJR Am J Roentgenol. 2010 Jan;194(4):1095-8): No stenosis: No attenuation of the fat in the foramen Mild stenosis: Loss of the fat in the foramen on two sides Moderate stenosis: Loss of the fat in the foramen all four sides Severe stenosis: Loss of the fat in the foramen all four sides and compression of the nerve root Signer Name: Jerald Tellez MD Signed: 11/22/2020 10:32 AM Workstation Name: [id number]
== END 2020-11-22 08:10 | disposition home or self-care (01) ==
LOC: MRI 08:09
PROVIDERS: ATTEND Physical Medicine & Rehabilitation
DX: M48.061 Spinal stenosis, lumbar region without neurogenic claudication (principal); M96.1 Postlaminectomy syndrome, not elsewhere classified
CPT/HCPCS: 72148

== ENCOUNTER 2021-01-13 16:02 | Emergency (ER) | payer OTHER, MEDICAID ==
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
[2021-01-13 17:45] LABS: Basophils # (Auto) 0.1 K/mm3 (0.0-0.1); Basophils % (Auto) 0.9 % (0.0-1.8); Eosinophils # (Auto) 0.2 K/mm3 (0.0-0.4); Eosinophils % (Auto) 3.8 % (0.0-4.3); Hemoglobin 12.9 gm/dl (10.1-14.3); Mean Corpuscular HGB Conc 34 % (30-34); Mean Corpuscular Volume 91 fl (79-97); Monocytes # (Auto) 0.4 K/mm3 (0.0-0.8); Monocytes % (Auto) 6.6 % (0.0-7.3); Platelet Count 320 K/mm3 (140-440); Red Blood Count 4.18 M/mm3 (3.65-5.03); Red Cell Distribution Width 14.9 % (13.2-15.2)
[2021-01-13 18:08] LABS: Alanine Aminotransferase 20 units/L (7-56); Albumin 4.4 g/dL (3.9-5); BUN/Creatinine Ratio 16; Blood Urea Nitrogen 13 mg/dL (7-17); Calcium 9.6 mg/dL (8.4-10.2); Hemolysis Index 9
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
[2021-01-13 20:39] VITALS: BP 156/80
[2021-01-13] MEDS ORDERED: oxyCODONE /ACETAMINOPHEN 5-325MG TAB PO ONE (20:42)
[2021-01-13] MEDS ORDERED: ONDANSETRON 4 MG ODT TAB PO ONE (20:42)
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
== END 2021-01-13 21:15 | disposition home or self-care (01) ==
LOC: ED 16:02
DX: S20.219A Contusion of unspecified front wall of thorax, initial encounter (principal); M62.838 Other muscle spasm; M25.551 Pain in right hip; M25.552 Pain in left hip; G89.29 Other chronic pain; I10 Essential (primary) hypertension; E11.9 Type 2 diabetes mellitus without complications; J44.9 Chronic obstructive pulmonary disease, unspecified; K21.9 Gastro-esophageal reflux disease without esophagitis; F17.200 Nicotine dependence, unspecified, uncomplicated; Z98.890 Other specified postprocedural states; Z79.899 Other long term (current) drug therapy; Z88.8 Allergy status to other drugs, medicaments and biological substances; Z91.018 Allergy to other foods; V49.49XA Driver injured in collision with other motor vehicles in traffic accident, initial encounter; Y92.410 Unspecified street and highway as the place of occurrence of the external cause; Y93.89 Activity, other specified; Y99.8 Other external cause status
CPT/HCPCS: 36415; 70450; 71260; 72125; 73110; 74177; 80053; 85025; 99284; Q9967; Q0162

== ENCOUNTER 2021-04-10 13:56 | Outpatient (CLI) | payer MEDICAID ==
--- NOTE | 2021-04-10 14:58 | XRay Report ---
LEFT ANKLE 3 VIEWS INDICATION: LEFT ANKLE PAIN. COMPARISON: None. IMPRESSION: No acute osseous or soft tissue abnormality. No significant joint pathology is detect ed. Signer Name: Dalton Heredia Jr, MD Signed: 04/10/2021 2:54 PM Workstation Name: [id number]
== END 2021-04-10 13:57 | disposition home or self-care (01) ==
LOC: XRAY 13:56
PROVIDERS: ATTEND Podiatrist Foot & Ankle Surgery
DX: M25.572 Pain in left ankle and joints of left foot (principal); M12.9 Arthropathy, unspecified

== ENCOUNTER 2021-07-02 15:04 | Emergency (ER) | payer MEDICAID ==
[2021-07-02 15:13] VITALS: BP 133/88
[2021-07-02 16:57] LABS: Bacteria,Urine 2+ /HPF (Negative); Bilirubin,Urine NEG (Negative); Blood,Urine MOD (Negative); Color,Urine Yellow (Yellow); Mucus,Urine FEW /HPF; Protein,Urine <15 mg/dL mg/dL (Negative); Urobilinogen,Urine < 2.0 mg/dL (<2.0)
--- NOTE | 2021-07-02 18:19 | Emergency Department Report ---
ED Female HPI - General Chief complaint: Urogenital-Female Stated complaint: VAGINAL INFECTION, PAIN WHEN URINATING Time Seen by Provider: 07/02/21 16:16 Source: patient Mode of arrival: Ambulatory Limitations: No Limitations - History of Present Illness Initial comments: This is a 51-year-old female nontoxic, well nourished in appearance, no acute s igns of distress presents to the ED with c/o of vaginal itching and dysuria x sevearl days. Patient denies any vaginal discharge. Patient stated she is not sexually active and is not concerned about STDs. Patient denies any vaginal pain or swelling. Patient denies any vaginal ulcers or lesions. Patient denies any pelvic pain or abdominal pain. Patient denies any nausea, vomiting, chest pain, shortness of breathe, fever, chills, headache, back pain, numbness, tingling, stiff neck. Patient denies any other urinary symptoms. Patient stated allergies to hydromorphone. -: days(s) Radiation: non-radiating Severity: mild Consistency: constant Improves with: none Worsens with: none Are you Now?: No Associated Symptoms: dysuria. denies: vaginal discharge, vaginal bleeding, abdominal pain, nausea/vomiting, fever/chills, headaches, loss of appetite, hematuria, rash, seizure, shortness of breath, syncope, weakness - Related Data Sexually active: No Home Medications Medication Instructions Recorded Confirmed Last Taken Pregabalin [Lyrica] 300 mg PO BID 12/17/13 08/30/20 08/30/20 Diltiazem HCl [Cardizem LA] 360 mg PO DAILY 12/03/15 08/30/20 08/30/20 Losartan/Hydrochlorothiazide 1 tab PO DAILY 12/28/15 08/31/20 08/30/20 [Losartan-Hctz 100-12.5 mg Tab] Albuterol Sulfate [Proventil HFA] 2 puff INHALATION QDAY PRN 08/19/16 08/30/20 12/20/17 Budesonide/Formoterol Fumarate 2 puff INHALATION Q12H 08/19/16 08/30/20 12/20/17 [Symbicort 160-4.5 Mcg Inhaler] ARIPiprazole [Abilify] 10 mg PO DAILY 08/30/20 08/31/20 08/29/20 Mirtazapine [Remeron] 15 mg PO QHS 08/30/20 08/31/20 08/29/20 cloNIDine-TTS PATCH [Catapres-Tts 1 patch TD Q7D 08/30/20 08/31/20 Unknown 0.2mg Patch] methOCARBAMOL [Robaxin TAB] 500 mg PO Q6H PRN 08/30/20 08/30/20 Unknown methylPREDNISolone [Medrol 4MG 4 mg PO DAILY 08/30/20 08/31/20 Unknown DOSEPAK (21 tabs)] Previous Rx's Medication Instructions Recorded Last Taken Type Fluticasone [Flonase] 1 spray NS QDAY #1 bottle 11/13/18 08/30/20 Rx Apixaban [Eliquis] 10 mg PO Q12HR #7 tablet 04/04/19 08/30/20 Rx Aspirin EC [Halfprin EC] 81 mg PO QDAY #30 tablet 04/04/19 08/30/20 Rx Tramadol HCl/Acetaminophen 1 each PO Q4HR PRN #12 tablet 08/29/20 Unknown Rx [Ultracet Tablet] Insulin NPH Hum/Reg Insulin Hm 10 unit SQ TIDAC #1 insuln.pen 08/31/20 Unknown Rx [Novolin 70-30 Flexpen] methOCARBAMOL [Robaxin TAB] 750 mg PO Q8H PRN #30 tablet 01/13/21 Unknown Rx Sulfamethoxazole/Trimethoprim 1 each PO BID #14 tablet 07/02/21 Unknown Rx [Bactrim DS TAB] metroNIDAZOLE [Flagyl] 500 mg PO Q12HR #14 tab 07/02/21 Unknown Rx Allergies Allergy/AdvReac Type Severity Reaction Status Date / Time hydromorphone HCl Allergy Hives Verified 07/02/21 15:17 [From Dilaudid] tomato [Tomato] Allergy Hives Verified 07/02/21 15:17 ED Review of Systems ROS: Stated complaint: VAGINAL INFECTION, PAIN WHEN URINATING Other details as noted in HPI Comment: All other systems reviewed and negative Constitutional: denies: chills, fever Eyes: denies: eye pain, eye discharge, vision change ENT: denies: ear pain, throat pain Respiratory: denies: cough, shortness of breath, wheezing Cardiovascular: denies: chest pain, palpitations Endocrine: no symptoms reported Gastrointestinal: denies: abdominal pain, nausea, diarrhea Genitourinary: denies: urgency, dysuria, discharge Musculoskeletal: denies: back pain, joint swelling, arthralgia Skin: denies: rash, lesions Neurological: denies: headache, weakness, paresthesias Psychiatric: denies: anxiety, depression Hematological/Lymphatic: denies: easy bleeding, easy bruising ED Past Medical Hx - Past Medical History Hx Hypertension: Yes Hx Diabetes: Yes Hx Pulmonary Embolism: Yes Hx GERD: Yes Hx Liver Disease: No Hx Renal Disease: Yes (kidney cancer) Hx Arthritis: Yes Hx Seizures: No Hx Asthma: Yes Hx COPD: Yes Hx HIV: No Additional medical history: pneumonia, ulcers - Surgical History Additional Surgical History: 2 hip replacements, back surgery, right arm surgery / RIGHT NEPHRECTOMY - Social History Smoking Status: Current Every Day Smoker Substance Use Type: Alcohol - Medications Home Medications: Home Medications Medication Instructions Recorded Confirmed Last Taken Type Pregabalin [Lyrica] 300 mg PO BID 12/17/13 08/30/20 08/30/20 History Diltiazem HCl [Cardizem LA] 360 mg PO DAILY 12/03/15 08/30/20 08/30/20 History Losartan/Hydrochlorothiazide 1 tab PO DAILY 12/28/15 08/31/20 08/30/20 History [Losartan-Hctz 100-12.5 mg Tab] Albuterol Sulfate [Proventil HFA] 2 puff INHALATION QDAY PRN 08/19/16 08/30/20 12/20/17 History Budesonide/Formoterol Fumarate 2 puff INHALATION Q12H 08/19/16 08/30/20 12/20/17 History [Symbicort 160-4.5 Mcg Inhaler] Fluticasone [Flonase] 1 spray NS QDAY #1 bottle 11/13/18 08/30/20 08/30/20 Rx Apixaban [Eliquis] 10 mg PO Q12HR #7 tablet 04/04/19 08/30/20 08/30/20 Rx Aspirin EC [Halfprin EC] 81 mg PO QDAY #30 tablet 04/04/19 08/30/20 08/30/20 Rx Tramadol HCl/Acetaminophen 1 each PO Q4HR PRN #12 tablet 08/29/20 08/30/20 Unknown Rx [Ultracet Tablet] ARIPiprazole [Abilify] 10 mg PO DAILY 08/30/20 08/31/20 08/29/20 History Mirtazapine [Remeron] 15 mg PO QHS 08/30/20 08/31/20 08/29/20 History cloNIDine-TTS PATCH [Catapres-Tts 1 patch TD Q7D 08/30/20 08/31/20 Unknown History 0.2mg Patch] methOCARBAMOL [Robaxin TAB] 500 mg PO Q6H PRN 08/30/20 08/30/20 Unknown History methylPREDNISolone [Medrol 4MG 4 mg PO DAILY 08/30/20 08/31/20 Unknown History DOSEPAK (21 tabs)] Insulin NPH Hum/Reg Insulin Hm 10 unit SQ TIDAC #1 insuln.pen 08/31/20 Unknown Rx [Novolin 70-30 Flexpen] methOCARBAMOL [Robaxin TAB] 750 mg PO Q8H PRN #30 tablet 01/13/21 Unknown Rx Sulfamethoxazole/Trimethoprim 1 each PO BID #14 tablet 07/02/21 Unknown Rx [Bactrim DS TAB] metroNIDAZOLE [Flagyl] 500 mg PO Q12HR #14 tab 07/02/21 Unknown Rx ED Physical Exam - General Limitations: No Limitations General appearance: alert, in no apparent distress - Head Head exam: Present: atraumatic, normocephalic - Eye Eye exam: Present: normal appearance - Neck Neck exam: Present: full ROM - Respiratory Respiratory exam: Absent: respiratory distress - Cardiovascular Cardiovascular Exam: Present: regular rate - GI/Abdominal GI/Abdominal exam: Present: soft, normal bowel sounds. Absent: distended, tenderness, guarding, rebound, rigid, diminished bowel sounds - Extremities Exam Extremities exam: Present: full ROM - Back Exam Back exam: Present: full ROM - Neurological Exam Neurological exam: Present: alert, oriented X3, normal gait - Psychiatric Psychiatric exam: Present: normal affect, normal mood - Skin Skin exam: Present: warm, dry, intact, normal color. Absent: rash ED Course Vital Signs 07/02/21 15:07 Temperature 98.5 F Pulse Rate 94 H Respiratory 16 Rate Blood Pressure 133/88 [Left] O2 Sat by Pulse 98 Oximetry - Reevaluation(s) Reevaluation #1: 07/02/21 18:17 Patient is speaking in full sentences with no signs of distress noted. ED Medical Decision Making - Lab Data Lab Results 07/02/21 Range/Units Unknown Urine Color Yellow (Yellow) Urine Turbidity Slightly-cloudy (Clear) Urine pH 5.0 (5.0-7.0) Ur Specific [place] 1.028 (1.003-1.030) Urine Protein <15 mg/dl (Negative) mg/dL Urine Glucose (UA) >=500 (Negative) mg/dL Urine Ketones Tr (Negative) mg/dL Urine Blood Mod (Negative) Urine Nitrite Neg (Negative) Urine Bilirubin Neg (Negative) Urine Urobilinogen < 2.0 (<2.0) mg/dL Ur Leukocyte Esterase Sm (Negative) Urine WBC (Auto) 10.0 H (0.0-6.0) /HPF Urine RBC (Auto) 6.0 (0.0-6.0) /HPF U Epithel Cells (Auto) 5.0 (0-13.0) /HPF Urine Bacteria (Auto) 2+ (Negative) /HPF Urine Mucus Few /HPF - Medical Decision Making This is a 51-year-old female that presents with BV AND UTI. Patient is stable was examined by me. Patient performed a self pelvic swab. There is no abdominal tenderness. No pelvic pain. UA obtained. Wet prep obtained. Patient was instructed to return in 3-5 days for GC results. Patient was instructed to Follow-up with a primary care doctor in 3-5 days or if symptoms worsen and continue return to emergency room as soon as possible. At time of discharge, the patient does not seem toxic or ill in appearance. No acute signs of distress noted. Patient agrees to discharge treatment plan of care. No further questions noted by the patient. Critical care attestation.: If time is entered above; I have spent that time in minutes in the direct care of this critically ill patient, excluding procedure time. ED Disposition Clinical Impression: Bacterial vaginosis UTI (urinary tract infection) Qualifiers: Urinary tract infection type: acute cystitis Hematuria presence: without hematuria Qualified Code(s): N30.00 - Acute cystitis without hematuria Disposition: HOME / SELF CARE / HOMELESS Is pt being admited?: No Does the pt Need Aspirin: No Condition: Stable Instructions: Bacterial Vaginosis (ED), Urinary Tract Infection, Adult, [id number], Bacterial Vaginosis, Jwef-rz-[id number], Cyclobenzaprine tablets Additional Instructions: Follow-up with a primary care doctor in 3-5 days or if symptoms worsen and continue return to emergency room as soon as possible. Prescriptions: Sulfamethoxazole/Trimethoprim [Bactrim DS TAB] 1 each PO BID #14 tablet metroNIDAZOLE [Flagyl] 500 mg PO Q12HR #14 tab Referrals: PRIMARY CAREMD [Primary Care Provider] - 3-5 Days LEANDRA COE MD [Staff Physician] - 3-5 Days Forms: Work/School Release Form(ED) Time of Disposition: 18:20
== END 2021-07-02 18:31 | disposition home or self-care (01) ==
LOC: ED 15:04
DX: N39.0 Urinary tract infection, site not specified (principal); N76.0 Acute vaginitis; B96.89 Other specified bacterial agents as the cause of diseases classified elsewhere; I12.9 Hypertensive chronic kidney disease with stage 1 through stage 4 chronic kidney disease, or unspecified chronic kidney disease; E11.22 Type 2 diabetes mellitus with diabetic chronic kidney disease; N18.9 Chronic kidney disease, unspecified; N17.9 Acute kidney failure, unspecified; K21.9 Gastro-esophageal reflux disease without esophagitis; I26.99 Other pulmonary embolism without acute cor pulmonale; M19.90 Unspecified osteoarthritis, unspecified site; J44.9 Chronic obstructive pulmonary disease, unspecified; J18.9 Pneumonia, unspecified organism; Z98.890 Other specified postprocedural states; F17.200 Nicotine dependence, unspecified, uncomplicated; Z88.5 Allergy status to narcotic agent; Z91.018 Allergy to other foods
CPT/HCPCS: 81001; 87086; 87210; 87591; 99283

== ENCOUNTER 2021-09-27 07:35 | Outpatient (CLI) | payer MEDICAID ==
[2021-09-27 08:20] LABS: Blood Urea Nitrogen 16 mg/dL (7-17)
--- NOTE | 2021-09-27 09:14 | Cat Scan Report ---
CT ABDOMEN AND PELVIS WITH CONTRAST HISTORY: LEFT LOWER QUAD ABDOMINAL PAIN. COMPARISON: 01/13/2021 TECHNIQUE: CT images of the abdomen and pelvis were obtained following administration of intravenous contrast. All CT scans at this location are performed using CT dose reduction for ALARA by means of automated exposure control. CONTRAST: 100 ml of intravenous contrast administered. FINDINGS: Lungs/bones: Lung bases are clear Abdomen/pelvis: Diffuse fatty infiltration the liver. No focal liver lesion. The spleen, adrenal gla nds, pancreas, gallbladder and upper GI tract appear normal. Right nephrectomy changes are noted. Ath erosclerotic changes seen throughout the aorta. No dominant adenopathy is seen. No focal inflammatory change is identified. Bilateral hip arthroplasties are noted. Postoperative change of the spine IMPRESSION: 1. Fatty infiltration liver. 2. Right nephrectomy changes noted. 3. No acute findings. Signer Name: Osman Garza MD Signed: 09/27/2021 9:10 AM Workstation Name: [id number]
== END 2021-09-27 07:36 | disposition home or self-care (01) ==
LOC: CT 07:35
PROVIDERS: ATTEND Internal Medicine Gastroenterology
DX: K76.0 Fatty (change of) liver, not elsewhere classified (principal); I70.0 Atherosclerosis of aorta; M16.0 Bilateral primary osteoarthritis of hip; Z90.5 Acquired absence of kidney
CPT/HCPCS: 36415; 74177; 82565; 84520; Q9967

== ENCOUNTER 2021-10-14 16:45 | Emergency (ER) | payer MEDICAID ==
[2021-10-14 20:56] VITALS: BP 147/83
--- NOTE | 2021-10-14 20:58 | Emergency Department Report ---
ED Abdominal Pain HPI - General Chief Complaint: Abdominal Pain Stated Complaint: ABD PAIN Time Seen by Provider: 10/14/21 20:53 Source: patient Mode of arrival: Ambulatory Limitations: No Limitations - History of Present Illness Initial Comments: Patient presents with a 5-day history of burning and cramping and sharp epigastric pain. This does not radiate or migrate. She states that it does hurt into the sides of the upper abdomen in addition. She was seen by GI. They did a CT as an outpatient. This was normal. She was told that she needs end oscopy. This was scheduled for November 08. Patient came in because she could not tolerate the pain any longer. She was not given any medication. Her GI doctor told her that it could be an ulcer. Patient has no fevers or chills. There is no hematemesis or coffee-ground emesis. She has no melenic stool. She has no other complaint - Related Data Home Medications Medication Instructions Recorded Confirmed Last Taken Pregabalin [Lyrica] 300 mg PO BID 12/17/13 08/30/20 08/30/20 Diltiazem HCl [Cardizem LA] 360 mg PO DAILY 12/03/15 08/30/20 08/30/20 Losartan/Hydrochlorothiazide 1 tab PO DAILY 12/28/15 08/31/20 08/30/20 [Losartan-Hctz 100-12.5 mg Tab] Albuterol Sulfate [Proventil HFA] 2 puff INHALATION QDAY PRN 08/19/16 08/30/20 12/20/17 Budesonide/Formoterol Fumarate 2 puff INHALATION Q12H 08/19/16 08/30/20 12/20/17 [Symbicort 160-4.5 Mcg Inhaler] ARIPiprazole [Abilify] 10 mg PO DAILY 08/30/20 08/31/20 08/29/20 Mirtazapine [Remeron] 15 mg PO QHS 08/30/20 08/31/20 08/29/20 cloNIDine-TTS PATCH [Catapres-Tts 1 patch TD Q7D 08/30/20 08/31/20 Unknown 0.2mg Patch] methOCARBAMOL [Robaxin TAB] 500 mg PO Q6H PRN 08/30/20 08/30/20 Unknown methylPREDNISolone [Medrol 4MG 4 mg PO DAILY 08/30/20 08/31/20 Unknown DOSEPAK (21 tabs)] Previous Rx's Medication Instructions Recorded Last Taken Type Fluticasone [Flonase] 1 spray NS QDAY #1 bottle 11/13/18 08/30/20 Rx Apixaban [Eliquis] 10 mg PO Q12HR #7 tablet 04/04/19 08/30/20 Rx Aspirin EC [Halfprin EC] 81 mg PO QDAY #30 tablet 04/04/19 08/30/20 Rx Tramadol HCl/Acetaminophen 1 each PO Q4HR PRN #12 tablet 08/29/20 Unknown Rx [Ultracet Tablet] Insulin NPH Hum/Reg Insulin Hm 10 unit SQ TIDAC #1 insuln.pen 08/31/20 Unknown Rx [Novolin 70-30 Flexpen] methOCARBAMOL [Robaxin TAB] 750 mg PO Q8H PRN #30 tablet 01/13/21 Unknown Rx Sulfamethoxazole/Trimethoprim 1 each PO BID #14 tablet 07/02/21 Unknown Rx [Bactrim DS TAB] metroNIDAZOLE [Flagyl] 500 mg PO Q12HR #14 tab 07/02/21 Unknown Rx Dicyclomine [Bentyl] 20 mg PO QID #30 tablet 10/14/21 Unknown Rx Pantoprazole Sodium [Protonix] 40 mg PO DAILY #30 10/14/21 Unknown Rx Sucralfate [Carafate] 1 gm PO ACHS #120 tablet 10/14/21 Unknown Rx Allergies Allergy/AdvReac Type Severity Reaction Status Date / Time hydromorphone HCl Allergy Hives Verified 10/14/21 20:57 [From Dilaudid] tomato [Tomato] Allergy Hives Verified 10/14/21 20:57 ED Review of Systems ROS: Stated complaint: ABD PAIN Other details as noted in HPI Comment: All other systems reviewed and negative Constitutional: denies: fever Eyes: denies: vision change ENT: denies: throat pain Respiratory: denies: cough Cardiovascular: denies: chest pain Endocrine: denies: unexplained weight loss Gastrointestinal: as per HPI Genitourinary: denies: dysuria Musculoskeletal: denies: back pain Skin: denies: rash Neurological: denies: headache Hematological/Lymphatic: denies: easy bruising ED Past Medical Hx - Past Medical History Hx Hypertension: Yes Hx Diabetes: Yes Hx Pulmonary Embolism: Yes Hx GERD: Yes Hx Liver Disease: No Hx Renal Disease: Yes (kidney cancer) Hx Arthritis: Yes Hx Seizures: No Hx Asthma: Yes Hx COPD: Yes Hx HIV: No Additional medical history: pneumonia, ulcers - Surgical History Additional Surgical History: 2 hip replacements, back surgery, right arm surgery / RIGHT NEPHRECTOMY - Family History Family history: hypertension - Social History Smoking Status: Current Every Day Smoker Substance Use Type: Alcohol - Medications Home Medications: Home Medications Medication Instructions Recorded Confirmed Last Taken Type Pregabalin [Lyrica] 300 mg PO BID 12/17/13 08/30/20 08/30/20 History Diltiazem HCl [Cardizem LA] 360 mg PO DAILY 12/03/15 08/30/20 08/30/20 History Losartan/Hydrochlorothiazide 1 tab PO DAILY 12/28/15 08/31/20 08/30/20 History [Losartan-Hctz 100-12.5 mg Tab] Albuterol Sulfate [Proventil HFA] 2 puff INHALATION QDAY PRN 08/19/16 08/30/20 12/20/17 History Budesonide/Formoterol Fumarate 2 puff INHALATION Q12H 08/19/16 08/30/20 12/20/17 History [Symbicort 160-4.5 Mcg Inhaler] Fluticasone [Flonase] 1 spray NS QDAY #1 bottle 11/13/18 08/30/20 08/30/20 Rx Apixaban [Eliquis] 10 mg PO Q12HR #7 tablet 04/04/19 08/30/20 08/30/20 Rx Aspirin EC [Halfprin EC] 81 mg PO QDAY #30 tablet 04/04/19 08/30/20 08/30/20 Rx Tramadol HCl/Acetaminophen 1 each PO Q4HR PRN #12 tablet 08/29/20 08/30/20 Unknown Rx [Ultracet Tablet] ARIPiprazole [Abilify] 10 mg PO DAILY 08/30/20 08/31/20 08/29/20 History Mirtazapine [Remeron] 15 mg PO QHS 08/30/20 08/31/20 08/29/20 History cloNIDine-TTS PATCH [Catapres-Tts 1 patch TD Q7D 08/30/20 08/31/20 Unknown History 0.2mg Patch] methOCARBAMOL [Robaxin TAB] 500 mg PO Q6H PRN 08/30/20 08/30/20 Unknown History methylPREDNISolone [Medrol 4MG 4 mg PO DAILY 08/30/20 08/31/20 Unknown History DOSEPAK (21 tabs)] Insulin NPH Hum/Reg Insulin Hm 10 unit SQ TIDAC #1 insuln.pen 08/31/20 Unknown Rx [Novolin 70-30 Flexpen] methOCARBAMOL [Robaxin TAB] 750 mg PO Q8H PRN #30 tablet 01/13/21 Unknown Rx Sulfamethoxazole/Trimethoprim 1 each PO BID #14 tablet 07/02/21 Unknown Rx [Bactrim DS TAB] metroNIDAZOLE [Flagyl] 500 mg PO Q12HR #14 tab 07/02/21 Unknown Rx Dicyclomine [Bentyl] 20 mg PO QID #30 tablet 10/14/21 Unknown Rx Pantoprazole Sodium [Protonix] 40 mg PO DAILY #30 10/14/21 Unknown Rx Sucralfate [Carafate] 1 gm PO ACHS #120 tablet 10/14/21 Unknown Rx ED Physical Exam - General Limitations: No Limitations, Other (Pulse ox noted and normal) General appearance: alert, in no apparent distress, obese - Head Head exam: Present: atraumatic, normocephalic - Eye Eye exam: Present: normal appearance. Absent: EOMI - ENT ENT exam: Present: normal external ear exam - Neck Neck exam: Present: normal inspection. Absent: meningismus - Respiratory Respiratory exam: Present: normal lung sounds bilaterally. Absent: respiratory distress - Cardiovascular Cardiovascular Exam: Present: regular rate, normal rhythm - GI/Abdominal GI/Abdominal exam: Present: soft, tenderness (Mild epigastric). Absent: distended, guarding, rebound, pulsatile mass - Extremities Exam Extremities exam: Present: normal capillary refill - Back Exam Back exam: Absent: CVA tenderness (R), CVA tenderness (L) - Neurological Exam Neurological exam: Present: alert, oriented X3, CN II-XII intact, normal gait - Psychiatric Psychiatric exam: Present: normal affect, normal mood - Skin Skin exam: Present: warm, dry ED Course Vital Signs 10/14/21 20:54 Temperature 98.8 F Pulse Rate 67 Respiratory 18 Rate Blood Pressure 147/83 [Left] O2 Sat by Pulse 96 Oximetry - Reevaluation(s) Reevaluation #1: 10/14/21 21:10 Patient was discharged ED Medical Decision Making - Medical Decision Making Patient presents with epigastric pain of several days duration which she reports. It is noted that she has been having this actually for a longer period of time. She had actually been seen by GI and had a CT. She was told that she may have an ulcer. She does not appear to be tachycardic or hypotensive. I do not believe she has anemia. I do not believe she would have issues that would require further blood work. CT results from recent were reviewed. There was no acute pathology. Patient was treated with Carafate and Protonix. She very well could have an ulcer. We will initiate treatment based on current thought based on GI report. Patient does not require another CT at this time. There is no pulsatile mass to suggest AAA. She certainly is not jaundiced. She does not have focal right upper quadrant tenderness suggestive of biliary disease. She does not have intractable vomiting that would suggest pancreatitis. Critical Care Time: No Critical care attestation.: If time is entered above; I have spent that time in minutes in the direct care of this critically ill patient, excluding procedure time. ED Disposition Clinical Impression: Acute epigastric pain Disposition: HOME / SELF CARE / HOMELESS Is pt being admited?: No Condition: Stable Instructions: Abdominal Pain, Adult, [id number], Abdominal Pain (ED) Additional Instructions: Have a bland diet. Drink plenty water. Follow-up with GI as directed. Avoid caffeine and spicy foods. Prescriptions: Dicyclomine [Bentyl] 20 mg PO QID #30 tablet Sucralfate [Carafate] 1 gm PO ACHS #120 tablet Pantoprazole Sodium [Protonix] 40 mg PO DAILY #30 Referrals: PRIMARY CARE, [Primary Care Provider] - 3-5 Days
== END 2021-10-14 21:10 | disposition home or self-care (01) ==
LOC: ED 16:45
DX: R10.13 Epigastric pain (principal); I10 Essential (primary) hypertension; E11.9 Type 2 diabetes mellitus without complications; K21.9 Gastro-esophageal reflux disease without esophagitis; M19.90 Unspecified osteoarthritis, unspecified site; J44.9 Chronic obstructive pulmonary disease, unspecified; Z98.890 Other specified postprocedural states; F17.200 Nicotine dependence, unspecified, uncomplicated; Z88.6 Allergy status to analgesic agent; Z91.018 Allergy to other foods
CPT/HCPCS: 99282

== ENCOUNTER 2022-02-25 12:21 | Emergency (ER) | payer MEDICAID, OTHER ==
[2022-02-25] MEDS ORDERED: ASPIRIN 325 MG TAB PO ONE ×2 (12:34→18:00)
[2022-02-25 13:07] LABS: Basophils # (Auto) 0.1 K/mm3 (0.0-0.1); Eosinophils # (Auto) 0.1 K/mm3 (0.0-0.4); Hematocrit 40.4 % (30.3-42.9); Lymphocytes # (Auto) 2.4 K/mm3 (1.2-5.4); Lymphocytes % (Auto) 36.9 % (13.4-35.0); Mean Corpuscular HGB Conc 32 % (30-34); Mean Corpuscular Volume 89 fl (79-97); Monocytes # (Auto) 0.5 K/mm3 (0.0-0.8); Platelet Count 317 K/mm3 (140-440); Red Blood Count 4.52 M/mm3 (3.65-5.03); Red Cell Distribution Width 14.8 % (13.2-15.2)
--- NOTE | 2022-02-25 13:15 | XRay Report ---
CHEST 2 VIEWS INDICATION / CLINICAL INFORMATION: chest pain. COMPARISON: 08/30/2020 FINDINGS: SUPPORT DEVICES: Port-A-Cath appears unchanged. HEART / MEDIASTINUM: No significant abnormality. LUNGS / PLEURA: No significant pulmonary or pleural abnormality. No pneumothorax. ADDITIONAL FINDINGS: No significant additional findings. IMPRESSION: 1. No acute findings. Signer Name: Alfredo Hou MD Signed: 02/25/2022 1:10 PM Workstation Name: [id number]
[2022-02-25 15:47] LABS: BUN/Creatinine Ratio 19; Blood Urea Nitrogen 13 mg/dL (7-17); Calcium 10.7 mg/dL (8.4-10.2)
[2022-02-25 15:48] LABS: Alanine Aminotransferase 24 units/L (7-56); Albumin 4.8 g/dL (3.9-5); Hemolysis Index 5
--- NOTE | 2022-02-25 15:57 | Emergency Department Report ---
ED General Adult HPI - General Chief complaint: Chest Pain Stated complaint: NOSE BLEED/HEADACHE/NEAL/CHEST PAIN PUI?: No Time Seen by Provider: 02/25/22 15:20 Source: patient Mode of arrival: Ambulatory Limitations: No Limitations - History of Present Illness Initial comments: 51yo obese F w/multiple medical comorbidities, presents for evaluation of multiple complaints today, including: Chest pain shortness of breath headache d izziness spontaneous nosebleed and generalized malaise. Patient states she was recently admitted for 3 days, from February 18 through February 21 at [facility] in [facility]. She states "I was having chest pain and dizziness and headaches and I thought I had a stroke. But they did a bunch of work-up including MRI and they told me I was not having a stroke." Patient states she was taken off of her blood pressure medication but she does not know the name of the medication that she was on prior to this. She states she is been having persistent stabbing sharp left-sided chest pain since . She states the pain is constant and does not radiate it is worsened with touch and movement of her trunk. She also reports mild shortness of breath and difficulty breathing. She states she is an ex-smoker and has mild shortness of breath as well. Chest pain is nonexertional in nature does not worsen when she gets up or walks or exerts herself. She states the shortness of breath is not exertional as well. No pain or swelling in her legs. Remainder of review of systems negative. Pain currently 8 out of 10. Patient reports she has not attempted to take any medication for her symptoms prior to arrival. MD Complaint: pt c/o headache, chest pain, sob, weakness, nosebleeds -: Sudden, days(s) (5 days ) Location: head, chest Radiation: non-radiation Severity scale (0 -10): 0 Quality: constant Consistency: constant Improves with: none Worsens with: movement, other (directly touching/palpating area ) Associated Symptoms: chest pain, cough, headaches, loss of appetite - Related Data Home Medications Medication Instructions Recorded Confirmed Last Taken Pregabalin [Lyrica] 300 mg PO BID 12/17/13 08/30/20 08/30/20 Diltiazem HCl [Cardizem LA] 360 mg PO DAILY 12/03/15 08/30/20 08/30/20 Albuterol Sulfate [Proventil HFA] 2 puff INHALATION QDAY PRN 08/19/16 08/30/20 12/20/17 Budesonide/Formoterol Fumarate 2 puff INHALATION Q12H 08/19/16 08/30/20 12/20/17 [Symbicort 160-4.5 Mcg Inhaler] ARIPiprazole [Abilify] 10 mg PO DAILY 08/30/20 08/31/20 08/29/20 Mirtazapine [Remeron] 15 mg PO QHS 08/30/20 08/31/20 08/29/20 cloNIDine-TTS PATCH [Catapres-Tts 1 patch TD Q7D 08/30/20 08/31/20 Unknown 0.2mg Patch] methOCARBAMOL [Robaxin TAB] 500 mg PO Q6H PRN 08/30/20 08/30/20 Unknown methylPREDNISolone [Medrol 4MG 4 mg PO DAILY 08/30/20 08/31/20 Unknown DOSEPAK (21 tabs)] Previous Rx's Medication Instructions Recorded Last Taken Type Fluticasone [Flonase] 1 spray NS QDAY #1 bottle 11/13/18 08/30/20 Rx Apixaban [Eliquis] 10 mg PO Q12HR #7 tablet 04/04/19 08/30/20 Rx Aspirin EC [Halfprin EC] 81 mg PO QDAY #30 tablet 04/04/19 08/30/20 Rx Tramadol HCl/Acetaminophen 1 each PO Q4HR PRN #12 tablet 08/29/20 Unknown Rx [Ultracet Tablet] Insulin NPH Hum/Reg Insulin Hm 10 unit SQ TIDAC #1 insuln.pen 08/31/20 Unknown Rx [Novolin 70-30 Flexpen] methOCARBAMOL [Robaxin TAB] 750 mg PO Q8H PRN #30 tablet 01/13/21 Unknown Rx Sulfamethoxazole/Trimethoprim 1 each PO BID #14 tablet 07/02/21 Unknown Rx [Bactrim DS TAB] metroNIDAZOLE [Flagyl] 500 mg PO Q12HR #14 tab 07/02/21 Unknown Rx Dicyclomine [Bentyl] 20 mg PO QID #30 tablet 10/14/21 Unknown Rx Pantoprazole Sodium [Protonix] 40 mg PO DAILY #30 01/09/22 Unknown Rx Sucralfate [Carafate] 1 gm PO ACHS #120 tablet 10/14/21 Unknown Rx Losartan/Hydrochlorothiazide 1 tab PO DAILY 21 Days #21 mg 02/25/22 Unknown Rx [Losartan-Hctz 100-12.5 mg Tab] Allergies Allergy/AdvReac Type Severity Reaction Status Date / Time hydromorphone HCl Allergy Hives Verified 10/14/21 20:57 [From Dilaudid] tomato [Tomato] Allergy Hives Verified 10/14/21 20:57 ED Review of Systems ROS: Stated complaint: NOSE BLEED/HEADACHE/NEAL/CHEST PAIN Other details as noted in HPI Comment: All other systems reviewed and negative Constitutional: see HPI Eyes: as per HPI ENT: as per HPI Respiratory: no symptoms reported, cough, shortness of breath. denies: SOB with exertion, SOB at rest, stridor, wheezing, other Cardiovascular: as per HPI, chest pain Endocrine: no symptoms reported Gastrointestinal: denies: abdominal pain, nausea, vomiting, diarrhea, constipation, hematemesis Genitourinary: denies: as per HPI, urgency, dysuria, frequency, hematuria, disch arge, abnormal menses, dyspareunia Musculoskeletal: denies: as per HPI, back pain, joint swelling, arthralgia Skin: denies: as per HPI, change in color Neurological: headache. denies: weakness, numbness, paresthesias, confusion, abnormal gait, vertigo Psychiatric: denies: as per HPI, anxiety, depression, auditory hallucinations, visual hallucinations, homicidal thoughts, suicidal thoughts Hematological/Lymphatic: denies: as per HPI, easy bleeding, easy bruising, swollen glands ED Past Medical Hx - Past Medical History Previous Medical History?: Yes Hx Hypertension: Yes Hx Diabetes: Yes Hx Pulmonary Embolism: Yes Hx GERD: Yes Hx Liver Disease: No Hx Renal Disease: Yes (kidney cancer) Hx Arthritis: Yes Hx Seizures: No Hx Asthma: Yes Hx COPD: Yes Hx HIV: No Additional medical history: pneumonia, ulcers - Surgical History Past Surgical History?: Yes Hx Coronary Stent: No Hx Open Heart Surgery: No Hx Pacemaker: No Hx Internal Defibrillator: No Hx Cholecystectomy: No Hx Appendectomy: No Hx Breast Surgery: No Additional Surgical History: 2 hip replacements, back surgery, right arm surgery / RIGHT NEPHRECTOMY - Family History Family history: no significant - Social History Smoking Status: Current Every Day Smoker Substance Use Type: Alcohol - Medications Home Medications: Home Medications Medication Instructions Recorded Confirmed Last Taken Type Pregabalin [Lyrica] 300 mg PO BID 12/17/13 08/30/20 08/30/20 History Diltiazem HCl [Cardizem LA] 360 mg PO DAILY 12/03/15 08/30/20 08/30/20 History Albuterol Sulfate [Proventil HFA] 2 puff INHALATION QDAY PRN 08/19/16 08/30/20 12/20/17 History Budesonide/Formoterol Fumarate 2 puff INHALATION Q12H 08/19/16 08/30/20 12/20/17 History [Symbicort 160-4.5 Mcg Inhaler] Fluticasone [Flonase] 1 spray NS QDAY #1 bottle 11/13/18 08/30/20 08/30/20 Rx Apixaban [Eliquis] 10 mg PO Q12HR #7 tablet 04/04/19 08/30/20 08/30/20 Rx Aspirin EC [Halfprin EC] 81 mg PO QDAY #30 tablet 04/04/19 08/30/20 08/30/20 Rx Tramadol HCl/Acetaminophen 1 each PO Q4HR PRN #12 tablet 08/29/20 08/30/20 Unknown Rx [Ultracet Tablet] ARIPiprazole [Abilify] 10 mg PO DAILY 08/30/20 08/31/20 08/29/20 History Mirtazapine [Remeron] 15 mg PO QHS 08/30/20 08/31/20 08/29/20 History cloNIDine-TTS PATCH [Catapres-Tts 1 patch TD Q7D 08/30/20 08/31/20 Unknown Hi story 0.2mg Patch] methOCARBAMOL [Robaxin TAB] 500 mg PO Q6H PRN 08/30/20 08/30/20 Unknown History methylPREDNISolone [Medrol 4MG 4 mg PO DAILY 08/30/20 08/31/20 Unknown History DOSEPAK (21 tabs)] Insulin NPH Hum/Reg Insulin Hm 10 unit SQ TIDAC #1 insuln.pen 08/31/20 Unknown Rx [Novolin 70-30 Flexpen] methOCARBAMOL [Robaxin TAB] 750 mg PO Q8H PRN #30 tablet 01/13/21 Unknown Rx Sulfamethoxazole/Trimethoprim 1 each PO BID #14 tablet 07/02/21 Unknown Rx [Bactrim DS TAB] metroNIDAZOLE [Flagyl] 500 mg PO Q12HR #14 tab 07/02/21 Unknown Rx Dicyclomine [Bentyl] 20 mg PO QID #30 tablet 10/14/21 Unknown Rx Pantoprazole Sodium [Protonix] 40 mg PO DAILY #30 10/14/21 Unknown Rx Sucralfate [Carafate] 1 gm PO ACHS #120 tablet 10/14/21 Unknown Rx Losartan/Hydrochlorothiazide 1 tab PO DAILY 21 Days #21 mg 02/25/22 Unknown Rx [Losartan-Hctz 100-12.5 mg Tab] ED Physical Exam - General Limitations: No Limitations General appearance: alert - Head Head exam: Present: atraumatic, normocephalic, normal inspection - Eye Eye exam: Present: normal appearance, PERRL, EOMI, conjunctival injection - ENT ENT exam: Present: normal exam, normal orophraynx, other (no active epistaxis; no septal perforations or hematomas) - Neck Neck exam: Present: normal inspection. Absent: tenderness, meningismus, full ROM, lymphadenopathy - Respiratory Respiratory exam: Present: normal lung sounds bilaterally. Absent: respiratory distress, wheezes, rales, rhonchi, stridor, chest wall tenderness, accessory muscle use, decreased breath sounds, prolonged expiratory - Cardiovascular Cardiovascular Exam: Present: regular rate, normal heart sounds. Absent: normal rhythm, bradycardia, tachycardia, irregular rhythm, systolic murmur, diastolic murmur, rubs, gallop, clicks, JVD, S4 - GI/Abdominal GI/Abdominal exam: Present: soft. Absent: distended, tenderness, guarding, rebound, hyperactive bowel sounds, hypoactive bowel sounds, organomegaly - Rectal Rectal exam: Present: deferred - Extremities Exam Extremities exam: Present: normal inspection, full ROM, normal capillary refill. Absent: pedal edema, joint swelling, calf tenderness - Neurological Exam Neurological exam: Present: alert, oriented X3, CN II-XII intact, normal gait, reflexes normal - Psychiatric Psychiatric exam: Present: normal affect - Skin Skin exam: Present: warm, dry, intact, normal color ED Course Vital Signs 02/25/22 02/25/22 12:35 20:37 Temperature 98.3 F Pulse Rate 89 65 Respiratory 16 12 Rate Blood Pressure 193/103 128/60 [Left] O2 Sat by Pulse 98 98 Oximetry ED Medical Decision Making - Lab Data Result diagrams: 02/25/22 12:41 02/25/22 12:41 - EKG Data -: EKG Interpreted by Me EKG shows normal: sinus rhythm Rate: normal - EKG Data When compared to previous EKG there are: no significant change Interpretation: no acute changes - Radiology Data Radiology results: report reviewed - Medical Decision Making 51yo morbidly obese F w/multiple medical comorbidities presents for evaluation of multiple complaints. Vitals reviewed. Pt given clonidine for bp management and oral analgesics. Serum labs and cxr unremarkable. Heart score 3. Wells criteria zero. Ddimer wnl. Pt's pain resolved with analgesics provided here. Pt encouraged to f/u with her pcp for outpatient reevaluation and further management. Pt stable for discharge to home. Prior to discharge patient was given strict verbal and written return precautions. She verbalized understanding to the plan of care Critical care attestation.: If time is entered above; I have spent that time in minutes in the direct care of this critically ill patient, excluding procedure time. ED Disposition Clinical Impression: Hypertension Qualifiers: Hypertension type: unspecified Qualified Code(s): I10 - Essential (primary) hypertension Headache Qualifiers: Headache type: unspecified Headache chronicity pattern: unspecified pattern Intractability: not intractable Qualified Code(s): R51.9 - Headache, unspecified Disposition: 01 HOME / SELF CARE / HOMELESS Is pt being admited?: No Does the pt Need Aspirin: No Condition: Stable Instructions: Hypertension, Adult, [id number], Hypertension (ED) Additional Instructions: It is extremely important that you follow up with your primary care doctor as soon as possible for reassessment and further management. This is extremely important. Take your blood pressure medication as prescribed. If you develop any reoccurring nosebleeds, please continue to apply pressure to your nose to help it to stop. Keep the inside of your nose moisturized at all times. Avoid picking your nose, or placing any objects in your nose that could potentially injure the inside of your nose and trigger bleeding. Return to the nearest emergency department as soon as possible if you develop severe or worsening headaches, vision changes, difficulty talking/walking/word finding, worsening chest pain, dizziness, lightheadedness, loss of consciousness, or if any other new worrisome symptoms develop. Prescriptions: Losartan/Hydrochlorothiazide [Losartan-Hctz 100-12.5 mg Tab] 1 tab PO DAILY 21 Days #21 mg Referrals: PRIMARY CARE, [Primary Care Provider] - 3-5 Days Time of Disposition: 21:22
[2022-02-25] MEDS ORDERED: methylPREDNISolone Sod Suc 125 MG in SODIUM CHLORIDE 0.9% 100 ML IV STA (16:13)
[2022-02-25] MEDS ORDERED: cloNIDine 0.1 MG TAB PO ONE (16:38)
[2022-02-25] MEDS ORDERED: SODIUM CHLORIDE 0.9% 1000 ML 1,000 ML ONE (16:49)
[2022-02-25] MEDS ORDERED: methylPREDNISolone Sod Succinate 125 MG/2 ML INJ ONE (16:49)
--- NOTE | 2022-02-25 18:00 | Cat Scan Report ---
CT BRAIN: 02/25/2022 INDICATION / CLINICAL INFORMATION: on blood thinner, c/o worsening headache, dizzines. COMPARISON: 01/13/2021 FINDINGS: BRAIN/INTRACRANIAL STRUCTURES: Unenhanced CT images of the brain demonstrate no evidence of acute abn ormality. Ventricles and sulci are normal in size and shape. There is no evidence of ischemic injury, hemorrhage, or mass. There are no abnormal extra-axial fluid collections. EXTRACRANIAL STRUCTURES: Unremarkable. IMPRESSION: Negative unenhanced CT of the brain. No change when compared to 01/13/2021. All CT scans at this location are performed using dose reduction to ALARA by means of automated expos ure control. Signer Name: Scotty Soria MD Signed: 02/25/2022 5:55 PM Workstation Name: [id number]
[2022-02-25 22:46] VITALS: BP 139/64
--- NOTE | 2022-02-27 12:07 | Electrocardiograph Report ---
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
== END 2022-02-25 22:46 | disposition home or self-care (01) ==
LOC: ED 12:21
DX: R51.9 Headache, unspecified (principal); I12.9 Hypertensive chronic kidney disease with stage 1 through stage 4 chronic kidney disease, or unspecified chronic kidney disease; E11.22 Type 2 diabetes mellitus with diabetic chronic kidney disease; N18.9 Chronic kidney disease, unspecified; K21.9 Gastro-esophageal reflux disease without esophagitis; M19.90 Unspecified osteoarthritis, unspecified site; J44.9 Chronic obstructive pulmonary disease, unspecified; Z98.890 Other specified postprocedural states; F17.290 Nicotine dependence, other tobacco product, uncomplicated; Z88.5 Allergy status to narcotic agent; Z91.018 Allergy to other foods
CPT/HCPCS: 36415; 70450; 71046; 80053; 83880; 84484; 85025; 85379; 93005; 96365; 99284; J2930; J7030

== ENCOUNTER 2022-03-13 12:03 | Outpatient (CLI) | payer MEDICAID ==
[2022-03-13 13:44] LABS: Blood Urea Nitrogen 12 mg/dL (7-17)
--- NOTE | 2022-03-13 14:24 | Cat Scan Report ---
CT angio chest INDICATION / CLINICAL INFORMATION: Z86.711 PERSONAL HISTORY OF PULMONARY EMBOLISM 100 ML OMNI 350 . TECHNIQUE: Axial CT images were obtained through the chest after injection of IV contrast. 3 plane MIP and/or 3D reconstructions were produced. All CT scans at this location are performed using CT dose reduction f or ALARA by means of automated exposure control. COMPARISON: None available. FINDINGS: PULMONARY ARTERIES: No pulmonary emboli. HEART: No significant abnormality. MEDIASTINUM / LESLY: No significant abnormality. LUNGS: Minimal dependent atelectasis. No pleural effusion. No pneumothorax. ADDITIONAL FINDINGS: None. UPPER ABDOMEN: Right nephrectomy SKELETAL STRUCTURES: There is AVN of the humeral heads. IMPRESSION: 1. No CT evidence for pulmonary embolism. 2. No acute findings. Signer Name: Jerald Tellez MD Signed: 03/13/2022 2:20 PM Workstation Name: [id number]
== END 2022-03-13 12:04 | disposition home or self-care (01) ==
LOC: CT 12:03
PROVIDERS: ATTEND Internal Medicine Cardiovascular Disease
DX: J98.11 Atelectasis (principal); Z90.5 Acquired absence of kidney
CPT/HCPCS: 36415; 71275; 82565; 84520; Q9967